=== PATIENT | male | born 1980 | race Caucasian/White ===

== ENCOUNTER → 2018-01-30 08:37 | Outpatient (CLI) | payer OTHER, SELFPAY ==
--- NOTE | 2018-01-30 08:40 | RAD_ITS ---
STUDY: X-RAY - CERVICAL SPINE REASON FOR EXAM: Male, 37 years old. Left-sided neck pain x2 TECHNIQUE: 7 view(s) of the cervical spine were obtained. COMPARISON: None FINDINGS: Normal anterior atlantoaxial articulation. Normal odontoid process. Normal cervical lordosis. Normal vertebral bodies and endplates. Normal disc space heights. Normal visualized intervertebral neuroforamina. The soft tissue structures are unremarkable. RAD/Cerv Spine 4 or 5 Views IMPRESSION: Normal x-ray examination of the visualized cervical spine. Electronically Signed: Kye Phan MD at 9:53 EDT , Service support ,
== END ==
PROVIDERS: Family Provider Nurse Practitioner; PCP Nurse Practitioner; Visit Provider Nurse Practitioner Gerontology
DX: M54.2 Cervicalgia (principal)
CPT/HCPCS: 72050

== ENCOUNTER 2020-11-23 08:56 | Outpatient (RCR) | payer OTHER, SELFPAY | END 2021-01-24 23:59 | LOC: IMMUN 08:56 | PROVIDERS: PCP Pediatrics; Referring Provider Family Medicine; Visit Provider Family Medicine | DX: Z23 Encounter for immunization (principal) | CPT/HCPCS: 0001A; 91300 ==

== ENCOUNTER → 2022-01-02 | Outpatient (CLI) | payer OTHER, SELFPAY ==
--- NOTE | 2022-01-02 13:27 | CT_ITS ---
STUDY: CTA CHEST REASON FOR EXAM: Male, 41 years old. Thoracic aortic ectasia RADIATION DOSAGE (If Supplied By Facility): CTDIvol = ( 12.64 ) mGy, DLP = ( 555.72 ) mGycm TECHNIQUE: The examination was performed with the intravenous administration of IV 100mL Isovue-370. Post-processing of the angiographic images was performed, with multiplanar reformation and 3D reconstruction. Individualized dose optimization techniques were used for this CT. COMPARISON: Comparison is made with prior study dated 05/09/2015. FINDINGS: Normal enhancement of the main pulmonary artery and right and left pulmonary arteries. Normal enhancement of the bilateral peripheral pulmonary arteries. There is no demonstrated pulmonary embolism. There is aneurysmal dilatation of the ascending aorta. The transverse diameter of the ascending aorta measures 43.6 mm''s. There is no demonstrated aortic dissection. Normal heart and pericardium. Normal mediastinum. Normal hilar regions. Normal visualized trachea and bronchi. The lungs are well expanded. Normal pulmonary parenchyma. Normal pleura. Normal chest wall structures. Normal osseous structures. Normal visualized upper abdomen. CT/CTA Chest W/WO Contrast IMPRESSION: Aneurysmal dilatation of the root of the ascending aorta with a transverse dimension of 43.6 mm. It previously measured 42 mm. Electronically Signed: Ezio Sears MD at 14:55 EDT ,
--- NOTE | 2022-01-02 13:42 | ECHOCS_ITS ---
Reason For Study: MURMUR Procedure This was a 2D Doppler, Color Flow transthoracic echocardiogram. The study was technically difficult. Contrast injection was performed. Exam performed in department. Left Ventricle Normal LV size. Left ventricular systolic function is normal. The estimated ejection fraction is 60 %. No evidence for diastolic dysfunction. No regional wall motion abnormalities noted. Right Ventricle Normal RV size. Normal systolic function. Atria Normal left atrium. Normal right atrium. No doppler evidence for ASD. Mitral Valve There is no mitral annular calcification. Normal mitral valve. Trivial mitral valve insufficiency. Tricuspid Valve Normal tricuspid valve. Trivial tricuspid valve insufficiency. Right ventricular systolic pressure estimated to be 25 mmHg. Aortic Valve Bicuspid aortic valve. Mild focal aortic valve calcification. Trivial eccentric aortic valve insufficiency. Pulmonic Valve The pulmonic valve is not well visualized. Great Vessels Mildly dilated aortic root. Pericardium/Pleural No pericardial effusion. Medication Diluted definity 4ml given slow IV push to enhance endocardial definition. MMode/2D Measurements & Calculations LVIDd: 5.3 cm IVSd: 0.93 cm Ao root diam: 3.8 cm LVIDs: 3.9 cm LVPWd: 0.98 cm RVDd: 4.1 cm FS: 27.2 % LAV(MOD-bp): 41.7 ml LVAd ap4: 38.1 cm2 SV(MOD-sp4): 79.2 ml LAV(MOD-bp) Indexed: 17.2 ml/m2 LVLd ap4: 9.2 cm LAV(MOD-sp2): 38.2 ml EDV(MOD-sp4): 131.8 ml LAV(MOD-sp4): 39.7 ml EDV(sp4-el): 134.4 ml LVAs ap4: 21.6 cm2 LVLs ap4: 7.5 cm ESV(MOD-sp4): 52.6 ml ESV(sp4-el): 52.8 ml EF(MOD-sp4): 60.1 % EF(sp4-el): 60.7 % SV(sp4-el): 81.6 ml LA A4 area: 17.0 cm2 LA dimension(2D): 3.6 cm RA A4 area: 13.9 cm2 Time Measurements MV dec time: 0.22 sec Doppler Measurements & Calculations MV E max kyle: 71.3 cm/sec Lat Peak E' Kyle: 14.0 cm/sec Med Peak E' Kyle: 7.6 cm/sec MV A max kyle: 51.4 cm/sec E/E' lat: 5.1 E/E' med: 9.4 MV E/A: 1.4 Ao V2 max: 159.9 cm/sec LV V1 max: 91.4 cm/sec PA V2 max: 106.9 cm/sec Ao max P.2 mmHg LV V1 max P.3 mmHg TR max kyle: 234.0 cm/sec TR max P.9 mmHg ECHO/Echo Complete W/ Contrast Interpretation Summary The study was technically difficult. Contrast injection was performed. Left ventricular systolic function is normal. The estimated ejection fraction is 60 %. Trivial mitral valve insufficiency. Trivial tricuspid valve insufficiency. Bicuspid aortic valve. Mild focal aortic valve calcification. Trivial eccentric aortic valve insufficiency. Mildly dilated aortic root. Right ventricular systolic pressure estimated to be 25 mmHg. No evidence for diastolic dysfunction. Ordering Physician: Jaxson Wu Referring Physician: BRANDON DOLL Performed By: Madhuri Frank RDCS
== END | disposition home or self-care (01) ==
LOC: PSN 13:26
PROVIDERS: PCP Pediatrics; Visit Provider Internal Medicine Cardiovascular Disease
DX: Q23.1 Congenital insufficiency of aortic valve (principal); I77.810 Thoracic aortic ectasia; R00.1 Bradycardia, unspecified
CPT/HCPCS: 71275; 93225; 93226; 93306; Q9957; Q9967; A4216; C8929

== ENCOUNTER 2025-05-03 06:47 | Emergency (ER) | payer OTHER, SELFPAY ==
[2025-05-03 06:48] VITALS: BP 109/87; PULSE 69; RESP 18; TEMP 36.7; O2SAT 98; BMI 36.8
--- NOTE | 2025-05-03 07:17 | EX.ED.DYSGE1 ---
HPI History of Present Illness Chief Complaint: Lower Extremity Injury Narrative Narrative: Chief complaint and HPI: 45-year-old male with past medical history of gout presents for evaluation of right knee pain. Patient states that he has had pain in his right knee for the past 2 weeks intermittently. He states that the pain is located on the lateral aspect of the knee. He states there was swelling in the knee that significantly improved after steroids. On chart review, he went to urgent care on 04/28 for the same complaint. He had an x-ray performed and was placed on steroids for possible gout. He states that he has not been taking his allopurinol secondary for concern of possible gout. He states this does not feel like his typical gout flare. His knee is not red or warm. Movement/walking on the knee makes the pain worse. He denies any trauma or injury. Denies any numbness or tingling. Denies any fever, chills, shortness of breath, chest pain abdominal pain, nausea, vomiting. Denies any calf pain or swelling. Review of systems: See HPI Medications: As listed on the chart Allergies: As listed on the chart PFSH: Per chart Vital signs: As listed on the chart. Reviewed. Physical exam: Gen: A&O x3, NAD Head: Normocephalic, atraumatic Eyes: No sclera icterus, conjunctiva clear ENT: Moist mucous membranes CV: Regular rate Resp: Nonlabored respirations Musc: Full ROM of all the extremities except for the right lower extremity which is limited in active range of motion secondary to lateral knee pain, full passive range of motion, no deformity, no knee instability, patient has tenderness to palpation along the lateral collateral ligament of the knee otherwise knee is nontender, no significant joint or knee swelling, no erythema/warmth/crepitus/ecchymosis/rash, no meniscal tenderness, no calf swelling or tenderness, negative Homans' sign, DP/PT pulses +2 bilaterally, compartments soft, good capillary refill, sensation intact Skin: Warm, dry Neuro: Alert, oriented, grossly intact Psych: Cooperative, appropriate mood and affect [facility] Medical History Bicuspid aortic valve Bradycardia Dilated aortic root Gout Gout of right elbow Home Medications ?Medication ?Instructions ?Recorded ?Last Taken ?Type allopurinol 100 mg tablet 300 mg PO DAILY 11/23/21 Unknown History prednisone 50 mg tablet 50 mg PO QDAY #7 tabs 04/28/25 Unknown Rx Allergy/AdvReac Type Severity Reaction Status Date / Time No Known Allergies Allergy Verified 05/03/25 06:53 Family History Other Heart disease Social History adopted: Yes Smoking Status: Current every day smoker tobacco type: e-cigarettes and smokeless tobacco alcohol intake: current details: 14 cans of beer per week substance use type: does not use caffeine: Yes EXAM Physical Exam Const Vital Signs: 05/03/25 06:48 Temperature 98.0 F Temperature Source Oral Pulse Rate 69 Respiratory Rate 18 Blood Pressure 109/87 H Blood Pressure Mean 94 Pulse Ox 98 Oxygen Delivery Method Room Air MDM MDM MDM Narrative Medical decision making narrative: 45-year-old male with past medical history of gout presents for evaluation of right knee pain. Patient states that he has had pain in his right knee for the past 2 weeks intermittently. He states that the pain is located on the lateral aspect of the knee. He states there was swelling in the knee that significantly improved after steroids. On chart review, he went to urgent care on 04/28 for the same complaint. He had an x-ray performed and was placed on steroids for possible gout. I reviewed the note as well as the x-ray. X-ray was unremarkable. He states this does not feel like his typical gout flare. See physical exam findings. Physical exam is not consistent with gout or septic arthritis. No large knee effusion. Patient is tender only along the lateral collateral ligament of the knee. Suspect sprain. I do not think any repeat x-rays are needed at this time. I did offer in case there is an occult fracture, patient declined. I do think this is reasonable as I have low suspicion for fracture. I do not think any laboratory workup is needed. Suggest [id number] knee brace. Patient educated on RICE therapy. He is given IM Toradol here for pain. Follow-up with orthopedics. He confirmed understand the plan. Patient stable to discharge home. Patient requesting work note which was given. Impression: 1. Right knee sprain Discharge Plan Triage Chief Complaint: Lower Extremity Injury ED Provider: Mike Quintero Dx/Rx/DC Orders Prescriptions: No Action allopurinol 100 mg tablet 300 mg PO DAILY prednisone 50 mg tablet 50 mg PO QDAY Qty: 7 0RF Primary Care Provider: Bert Johnson Referrals: Bert Johnson DO [Primary Care Provider] - Print Language: Latvian
[2025-05-03] MEDS: Ketorolac 30 MG/ML Syringe IM (07:22)
[2025-05-03 07:34] VITALS: BP 109/87; PULSE 69; RESP 18; TEMP 36.7; O2SAT 98
--- OUTSIDE RECORDS SUMMARY | 2025-05-03 07:40 | XMS RPT_ITS | CCD ---
Author Organization [facility] CliniSysd Care Team Providers Care Assistant Plant Control Operator Name Role Phone Dr. Bert Johnson Primary Care Provider Dr. Bert Johnson Referring Provider Dr. Jaxson Wu Attending Provider Chance Ferro MD Primary Care Provider Chance Ferro MD Primary Care Provider Chance Ferro MD Primary Care Provider Chance Ferro MD Primary Care Provider Chance Ferro MD Primary Care Provider [phone] Elaine MONIQUE.BOARD WRITER, Jennifer Unavailable Poonam Alves PA-C Unavailable CHANCE FERRO Primary Care Unavailable QUITA MARTIN Attending Unavailable PILLO, CHANCE A Primary Care Unavailable PILLO, CHANCE A Primary Care Unavailable PILLO, CHANCE A Primary Care Unavailable PILLO, CHANCE A Attending Unavailable PILLO, CHANCE A Primary Care Unavailable PILLO, CHANCE A Attending Unavailable PILLO, CHANCE A Primary Care Unavailable PILLO, CHANCE A Referring Unavailable PILLO, CHANCE A Primary Care Unavailable PILLO, CHANCE A Primary Care Unavailable PILLO, CHANCE A Attending Unavailable Dr. Bert Johnson DO Primary Care Provider Dr. Bert Johnson DO Referring Provider Wilner Nix Attending Provider Blayne BENEDICT, Dr. Caro Attending Provider [phone] Wilner Nix Attending Unavailable Bert Johnson Referring Unavailable Bert Johnson Primary Care Unavailable Gordo Cisneros Attending Unavailable Bert Johnson Primary Care Unavailable Dr. Mike Quintero DO Emergency Provider Medications Current Medications Medication Drug Class(es) Dates Sig (Normalized) Sig (Original) allopurinol 300 mg oral tablet (17 sources) Xanthine Oxidase Inhibitor Start: 05-27-2024 End: 08-20-2024 take 1 tablet by mouth once daily for pain allopurinol (ZYLOPRIM) 300 mg tablet Indications: Gout, unspecified cause, unspecified chronicity, unspecified site Take 1 tablet by mouth once daily. For gout. Start after acute pain is resolved for 5-7 days. 30 tablet 5 08/20/2024 Active Start: 06-07-2023 End: 06-06-2024 take 1 tablet by mouth twice daily allopurinol (ZYLOPRIM) 100 mg tablet Indications: History of gout Take 1 tablet by mouth two times a day. For gout. 60 tablet 11 06/07/2023 05/27/2024 Discontinued Start: 11-23-2021 take 3 tablets by mo [facility] once daily Allopurinol 100 mg tablet Active 300 mg PO DAILY November 23, 2021 12:00am Start: 11-23-2021 take 1 tablet by mary beth th once daily Allopurinol 100 mg tablet Active 100 mg PO DAILY November 23, 2021 12:00am Comment on above: Take 1 tablet by mary beth th two times a day. For gout. cefadroxil 500 mg oral capsule (2 sources) Cephalosporin Antibacterial Start: End: take 1 capsule by mouth twice daily cefADROxil (DURICEF) 500 mg capsule Indications: Ingrown nail of great toe of right foot , Cellulitis of skin Take 1 capsule by mouth two times a day for 14 days. 28 capsule 08/20/2024 09/03/2024 Active Start: 05-27-2024 End: 06-06-2024 take 1 capsule by mouth twice daily cefADROxil (DURICEF) 500 mg capsule Take 1 capsule by mouth two times a day for 10 days. 20 capsule 05/27/2024 06/06/2024 Active omeprazole 40 mg delayed release oral capsule (17 sources) Proton Pump Inhibitor Start: 10-29-2022 take 1 capsule by mouth once daily omeprazole (PRILOSEC) 40 mg capsule Take 1 capsule by mouth once daily. 30 capsule 3 10/29/2022 Active Comment on above: Take 1 capsule by [facility] once daily. predniSONE 50 mg oral tablet (20 sources) Start: 04-28-2025 take 1 tablet by mouth once daily Prednisone 50 mg tablet Active 50 mg PO daily 7 0 April 28, 2025 12:00am Start: 05-27-2024 End: 08-20-2024 take 3 tablets by mouth once daily predniSONE (DELTASONE) 20 mg tablet 3 tabs a day by mouth for the next 5 days 15 tablet 06/10/2024 08/20/2024 Discontinued Start: 03-15-2024 End: 03-20-2024 take 1 tablet by mouth once daily predniSONE (DELTASONE) 50 mg Indications: Acute gout of left wrist, unspecified cause Take 1 tablet by mouth once daily for 5 days. 5 tablet 0 03/15/2024 03/20/2024 Active Start: 10-29-2023 End: 11-07-2023 predniSONE (DELTASONE) 10 mg tablet Indications: Acute gout of left knee, unspecified cause Take 4 tabs daily for 3 days, then 2 tabs daily for 3 days, then 1 tab daily for 3 days with food. 21 tablet 0 10/29/2023 11/07/2023 Active Start: 07-07-2022 End: 10-29-2022 take 2 tablets by mouth once daily predniSONE (DELTASONE) 20 mg tablet 2 by mouth daily for 5 days. 10 tablet 0 07/07/2022 10/29/2022 Discontinued (Course of therapy completed) Start: 06-16-2022 End: 06-25-2022 predniSONE (DELTASONE) 10 mg tablet Indications: Patellar bursitis of left knee Take 4 tabs daily for 3 days, then 2 tabs daily for 3 days, then 1 tab daily for 3 days with food. 21 tablet 0 06/16/2022 06/25/2022 Active Start: 11-23-2021 End: 04-28-2025 take 1 tablet by mouth once daily as needed Prednisone 20 mg tablet Discontinued 20 mg PO DAILY as needed November 23, 2021 12:00am April 28, 2025 7:48am Start: 10-31-2020 End: 11-12-2020 Prednisone 10 mg tablet Disc ontinued 10 mg PO daily 30 12 0 October 31, 2020 12:00am November 11, 2020 12:00am November 12, 2020 12:04am Unspecified contact dermatitis, unspecified cause Take 4 tabs once daily days 1-3 3 tabs once daily days 4-6 2 tabs once daily days 7-9 and 1 tab once daily days 10-12. Comment on above: Take 4 tabs daily fo r 3 days, then 2 tabs daily for 3 days, then 1 tab daily for 3 days with food. 2 by mouth daily for 5 days. sertraline 50 mg oral tablet (6 sources) Serotonin Reuptake Inhibitor Start: 05-27-2024 sertraline (ZOLOFT) 50 mg tablet 1/2 a tablet by mouth once a day for 14 days then go to one tablet daily 30 tablet 5 05/27/2024 Active Completed/Discontinued Medications Medication Drug Class(es) Dates Sig (Normalized) Sig (Original) acetaminophen 325 mg / HYDROcodone bitartrate 5 mg oral tablet (4 sources) Opioid Agonist Start: 01-31-2015 End: 11-07-2020 take 1 tablet by mouth every four hours as needed Hydrocodone-Acetami nophen Discontinued 1 - 2 TABLET PO EVERY 4 HOURS NEEDED 6 January 31, 2015 10:42pm November 07, 2020 1:54pm Start: 01-31-2015 End: 11-07-2020 Hydrocodone-Acetaminophen 1 TABLET tablet Discontinued 1 - 2 {tbl} PO EVERY 4 HOURS NEEDED as needed for Pain 6 0 January 31, 2015 12:00am November 07, 2020 1:54pm allopurinol (ZYLOPRIM) 200 mg tablet [place] Formulary (4 sources) End: 10-29-2022 take 1 tablet by mouth once daily allopurinol (ZYLOPRIM) 200 mg tablet [place] Formulary Take 200 mg by mouth once daily. 0 10/29/2022 Discontinued take 1 tablet by mouth once rita y allopurinol (ZYLOPRIM) 200 mg tablet [place] Formulary Take 200 mg by mouth once daily. 0 Active Comment on above: Take 200 mg by mouth once daily. colchicine 0.6 mg oral tablet (5 sources) Start: 2023 End: 2023 take 1 tablet by mouth three times daily colchicine 0.6 mg tablet Take one tab by mouth 3 times a day till pain stops or script finished. 10 tablet 1 05/27/2024 07/01/2024 Discontinued (Course of therapy completed) famotidine 20 mg oral tablet (4 sources) Histamine-2 Receptor Antagonist Start: 2021 End: 2022 take 1 tablet by mouth at bedtime as needed famotidine (PEPCID) 20 mg tablet Indications: Abdominal pain, unspecified abdominal location Take 1 tablet by mouth at bedtime as needed. 30 tablet 0 05/01/2022 10/29/2022 Discontinued Comment on above: Take 1 tablet by mary beth th at bedtime as needed. ibuprofen 200 mg oral capsule (4 sources) Nonsteroidal Anti-inflammatory Drug Start: 2020 End: 2021 take 1 capsule by mouth every six hours as needed Ibuprofen 200 mg capsule Discontinued 200 mg PO EVERY 6 HOURS as needed November 14, 2020 12:00am November 23, 2021 3:47pm indomethacin 50 mg oral capsule (4 sources) Nonsteroidal Anti-inflammatory Drug Start: 2020 End: 2021 take 1 capsule by mouth three times daily as needed Indomethacin 50 mg capsule Discontinued 50 mg PO THREE TIMES A DAY as needed for pain, moderate 40 0 November 14, 2020 12:00am November 23, 2021 3:47pm take regularly for 1 week than as needed. Do not take in conjunction with ibuprofen or other NSAID. Tylenol is okay. administer with food or milk methylPREDNISolone (4 sources) Corticosteroid Start: 2023 End: 2023 methylPREDNISolone (MEDROL, CAMI,) 4 mg Dose-Pack Indications: Acute gout involving toe of right foot, unspecified cause As instructed per package 21 tablet 03/05/2024 05/27/2024 Discontinued Start: 03-05-2024 methylPREDNISo lone (MEDROL, CAMI,) 4 mg Dose-Pack Indications: Acute gout involving toe of right foot, unspecified cause As instructed per package 21 tablet 0 03/05/2024 Active Start: 11-14-2020 End: 11-14-2020 Depo-Medrol (methylprednisol one acetate) 40 mg/mL suspension for injection Discontinued 40 MG INTRAARTIC ONCE 1 November 14, 2020 9:56am November 14, 2020 10:46am nabumetone 500 mg oral tablet (4 sources) Nonsteroidal Anti-inflammatory Drug Start: 09-29-2013 End: 10-29-2022 take 1 tablet by mouth twice daily at mealtime nabumetone 500 mg tablet Indications: Low back pain Take 1 tablet by mouth twice daily. TAKE WITH FOOD 60 tablet 1 09/29/2013 10/29/2022 Discontinued Comment on above: Take 1 tablet by mary beth twice daily. TAKE WITH FOOD penicillin v potassium 500 mg oral tablet (4 sources) Start: 01-31-2015 End: 11-07-2020 take 1 tablet by mouth four times daily Penicillin V Potassium 500 MG tablet Discontinued 500 mg PO 4 TIMES DAILY 20 0 January 31, 2015 12:00am November 07, 2020 1:54pm perflutren lipid microspheres 1.3 mL in NaCl (PF) 0.9% 10 mL injection (DEFINITY) (9 sources) Start: 10-29-2022 End: 01-28-2024 perflutren lipid microspheres 1.3 mL in NaCl (PF) 0.9% 10 mL injection (DEFINITY) 125 ml sodium chloride 9 mg/ml prefilled syringe (9 sources) Start: 10-29-2022 End: 01-28-2024 sodium chloride 0.9 % (flush) 10 mL (BD POSIFLUSH) Problems Active Problems Problem Classification Problem Date Documented Date Episodic/Chronic Abdominal pain (1 source) Abdominal pain; Translations: [Unspecified abdominal pain] Episodic Anxiety disorders (7 sources) Generalized anxiety disorder; Translations: [Generalized anxiety disorder] Onset: 05-27-2024 05-27-2024 Chronic Aortic; peripheral; and visceral artery aneurysms (5 sources) Aortic root dilatation; Translations: [Thoracic aortic ectasia] Chronic Cardiac and circulatory congenital anomalies (6 sources) Bicuspid aortic valve; Translations: [Congenital insufficiency of aortic valve] Chronic Cardiac dysrhythmias (6 sources) Bradycardia; Translations: [Bradycardia, unspecified] Episodic Esophageal disorders (1 source) Gastroesophageal reflux disease without esophagitis; Translations: [Gastro-esophageal reflux disease without esophagitis] Chronic Gout and other crystal arthropathies (20 sources) Gout; Translations: [Gout, unspecified] Onset: 10-29-2022 10-29-2022 Chronic Mood disorders (7 sources) Severe major depression, single episode, without psychotic features; Translations: [Major depressive disorder, single episode, severe without psychotic features] Onset: 05-27-2024 05-27-2024 Chronic Nonspecific chest pain (2 sources) Chest pain; Translations: [Chest pain, unspecified] Episodic Other connective tissue disease (1 source) Patellar bursitis of left knee; Translations: [Other bursitis of knee, left knee] Episodic Other connective tissue disease (1 source) H/O: gout; Translations: [Personal history of other diseases of the musculoskeletal system and connective tissue] 06-07-2023 Episodic Other lower respiratory disease (3 sources) Dyspnea; Translations: [Shortness of breath] Episodic Other non-traumatic joint disorders (4 sources) Pain in right knee; Translations: [Right knee pain] Onset: 04-28-2025 04-28-2025 Episodic Other skin disorders (1 source) Cyst of scalp; Translations: [Follicular cyst of the skin and subcutaneous tissue, unspecified] 06-07-2023 Episodic Other skin disorders (3 sources) Ingrowing great toenail; Translations: [Ingrowing nail] 05-27-2024 Episodic Other skin disorders (1 source) Ingrowing toenail; Translations: [Ingrowing nail] 06-12-2024 Episodic Skin and subcutaneous tissue infections (2 sources) Paronychia of toe of right foot; Translations: [Cellulitis of right toe] 05-27-2024 Episodic Sprains and strains (1 source) Sprain of knee; Translations: [Sprain of unspecified site of unspecified knee, initial encounter] 05-03-2025 Episodic Past or Other Problems Problem Classification Problem Date Documented Da te Episodic/Chronic Residual codes; unclassified (20 sources) Insomnia; Translations: [Insomnia, unspecified] Onset: 09-29-2013 09-29-2013 Episodic Residual codes; unclassified (18 sources) Chews tobacco ; Translations: [Tobacco use] Onset: 10-29-2022 Episodic Screening and history of mental health and substance abuse codes (19 sources) Ex-smoker; Translations: [Personal history of nicotine dependence] Onset: 10-29-2022 Episodic Spondylosis; intervertebral disc disorders; other back problems (20 sources) Sciatica; Translations: [Sciatica, unspecified side] Onset: 09-29-2013 09-29-2013 Episodic Results Test Name Value Interpretation Reference Range Facility Knee 3 Viewson 04-28-2025 Knee 3 Views [facility] Imaging Services [address] [place] [address] Knee 3 Views MR#: [id number] Acct: [id number] Name: ERIC ARAIZA Rep #: [id number] : 1980 M 45 From: Jose L Balnco MD PCP: Dr. Bert Johnson DO Status: DEP AMB Study: Knee 3 Views Date of Exam: 04/28/25 Exam# [id number] Ordering Dr: Wilner Cochran PA PROCEDURE: KNEE 3 VIEWS 04/28/2025 REASON FOR EXAM: PAIN, SWELLING, NKI TECHNIQUE: Procedure Code: RADPAT Modality: DX Procedure: KNEE 3 VIEWS Laterality: Right COMPARISON: None FINDINGS: Bones: No fracture. Joints: Normal alignment. Effusion: Subtle increased density in the region of the suprapatellar bursa is likely musculature rather than an effusion; the upper extent of the versus not imaged. Soft tissues: Soft tissues are unremarkable. Other: No foreign body RAD/Knee 3 Views IMPRESSION: No acute abnormality Reading Location: [facility] CC: Dr. Bert Johnson DO; TARIQ Howard Commercial Development Manager: Signed Normal [facility] Urgent Care Visit Reporton 0 04-28-2025 Urgent Care Visit Report [facility] [address], [address] [place] [address] OFFICE VISIT Date of Service: 04/28/25 MR#: [id number] Acct: [id number] Name: ERIC ARAIZA Rep #: [id number] : 1980 Provider: TARIQ Howard Age/Sex: 45/M Location: [facility] Status: Signed Intake Vital Signs 11/23/21 15:46 04/28/25 07:47 Height 6 ft 6 ft Weight: 265 lb BMI 35.9 BP 120/78 Position Sitting Respiration 16 Pulse 67 Temp 98.3 F Temp Source Oral Pulse Oximetry (%) 97 Oxygen Delivery Method room air Intake Visit Reasons: SWOLLEN R KNEE Chief Complaint: Swollen Right knee Accompanied by: Self Allergies No Known Allergies Allergy (Verified 04/28/25 07:48) Medications ???Medication ???Instructions ???Recorded ???Confirmed ???Type allopurinol 100 mg tablet 100 mg PO DAILY 11/23/21 04/28/25 History prednisone 50 mg tablet 50 mg PO QDAY #7 tabs 04/28/2506/12 Rx Nurse's Note: Patient here for Right knee swelling and pain. Patient states this has been going on for about 2 weeks off and on. Patient states last night it was worse. Patient knee is swollen and so is his calf and he feels like his blood flow it getting cut off down the leg. Patient states that he can't put weight on it. Patient took 4 Aleve today. [facility] Medical History Bicuspid aortic valve Bradycardia Dilated aortic root Gout Gout of right elbow Family History Other Heart disease Social History adopted: Yes Smoking Status: Former smoker alcohol intake: current details: 14 cans of beer per week substance use type: does not use caffeine: Yes HPI HPI Chief Complaint: Swollen Right knee Details: ERIC ARAIZA, is a 45 M who presents to the office today for initial evaluation approximately 2-week history of right knee swelling and pain - though becoming intolerable as of last evening w/ warmth and swelling now appreciated. No history of trauma or recent open wounds. Though he stated to the nurse today that his right calf and he feels like his blood flow it getting cut off down the leg he feels this is due to right knee swelling; upon my questioning though, he notes having no discomfort to touch throughout his lower leg and feels good sensation throughout his right lower leg/ankle/foot. No complaints of chest pressure/shortness of breath/dyspnea on exertion. Patient states that he can put weight on his right lower extremity, though right knee pain is aggravated with prolonged weightbearing. He states having taken 4 Advil (not Aleve) this morning before reporting here today without relief. No other associated symptoms and no alleviating/aggravating factors. PMH: Gout ROS Const Constitutional: No other (as above) Exam Const General: cooperative, healthy appearing and no acute distress Orientation: alert and awake Eyes General: appearance normal, both eyes and all related structures Neck Neck: normal visual inspection and no meningeal signs Chest Chest palpation inspection: normal inspection of the chest Resp Effort Inspection: normal respiratory effort and able to speak in complete sentences Cardio Rate: regular rate Pulses: radial pulses present Skin General: no rashes or lesions noted Neuro General: patient alert and patient awake Cognition: normal cognition Speech: speech normal Motor: muscle tone normal throughout Sensory Exam: no sensory deficits noted Extrem General: normal to inspection (Except R knee swelling/warmth/LROM due to tender to touch), full ROM (Right hip/ankle), capillary refill normal and other (neg Lyndsey's BLE; +cap refill distally; no BLE edema) Psych Appearance: grossly normal Mental Status: mental status grossly normal Mood: congruent mood Affect: normal affect Speech and Movement: speech and movement normal Attitude: cooperative Coding Level of Care Code Off vis,est,level 4 Diagnoses Right knee pain M25.561 Assessment and Plan Assessment and Plan (1) Right knee pain: Plan: - consider gout exacerbation Right knee radiographs reveal no acute pathology per my review, pending radiologist interpretation time patient discharge. Prednisone as prescribed today; hold all NSAIDs while on this medication. Supportive measures including rest, elevate, Tylenol as needed; refused Adama wrap for localized compression upon offering. Work excuse given. Follow-up with PCP in 3 to 5 days should symptoms not improve, ED sooner should symptoms only worsen or any other concerns develop. Patient states acknowledging understanding all the above. This note was generated with OrderAheadation software. It (more content not included)... Normal [facility] CNOVon 08-20-2024 CNOV Office Visit (FAMPWS ) ERIC ARAIZA ([id number]) 1980 M Date Time Provider Department 08/20/24 1:40 PM NELL QUITA YOGI During your visit today, we recorded the following information about you: Pulse Blood pressure Weight 85/minute 110/78 116.4 kg NellQuita APRN.CNP 08/20/2024 2:25 PM Signed Chief Complaint Patient presents with: Ingrown Nail: Right big toe, red and painful x 2/3 weeks, removal by Dr. Ferro 06/12, Gout HPI Eric Araiza is a 44 year old male who presents here today for Above Complaints.. Right great toe-red and painful. About 2-3 weeks ago started to get red and painful, started getting red and painful again. Went skiing last week and has had a little bit of bloody drainage. Denies fever. Soaking in Epsom salt, peroxide when he gets home from work. Keeping it clean and dry-changes his socks twice daily. Lets it air out when gets home from work. Past medical history, appointments, medications, allergies reviewed. Previous Medical History PAST MEDICAL HISTORY Diagnosis Date Bicuspid aortic valve Fussion Chews tobacco 10/29/2022 Started age 17. Ex-smoker 10/29/2022 Started at age 17 and was smoking 1 pack every two weeks or more. Previous Surgical History History reviewed. No pertinent surgical history. Family History FAMILY HISTORY Problem Relation Age of Onset None Unknown pt adopted Patient Allergies ALLERGIES No Known Allergies Current Medications Current Outpatient Medications on File Prior to Visit Medication Sig predniSONE (DELTASONE) 20 mg tablet 3 tabs a day by mouth for the next 5 days allopurinol (ZYLOPRIM) 300 mg tablet Take 1 tablet by mouth once daily. For gout. Start after acute pain is resolved for 5-7 days. sertraline (ZOLOFT) 50 mg tablet 1/2 a tablet by mouth once a day for 14 days then go to one tablet daily omeprazole (PRILOSEC) 40 mg capsule Take 1 capsule by mouth once daily. No current facility-administered medications on file prior to visit. Social History Social History Tobacco Use Smoking status: Former Types: Cigarettes Smokeless tobacco: Never Tobacco comments: approx 2 cigs yearly Substance Use Topics Alcohol use: Yes Alcohol/week: 14.0 standard drinks of alcohol Types: 14 Cans of Beer (12oz) per week Drug use: No Review of Symptoms REVIEW OF SYSTEMS See HPI, otherwise negative EXAM: BP 110/78 (BP Site: Left Arm, BP Position: Sitting, BP Cuff Size: Large Adult) Pulse 85 Wt 116.4 kg (256 lb 9.9 oz) SpO2 100% BMI 35.79 kg/m? General Appearance: Well appearing, alert, in no acute distress, well-hydrated, well nourished.. Skin: skin surrounding right great toenail, specifically medially and proximally, swollen, cool, purple in color, small amount dried blood, mildly painful to palpation. Extremities: skin surrounding right great toenail, specifically medially and proximally, swollen, cool, purple in color, small amount dried blood, mildly painful to palpation.. Psychiatric: pleasant, cooperative. Health Maintenance List Hepatitis C Screening Never done HIV Screening Never done Hepatitis B Vaccine(1 of 3 - 19+ 3-dose series) Never done Lipid Screening Never done DTaP,Tdap,Td Vaccine(2 - Td or Tdap) due on 01/17/2021 Influenza Vaccine(1) due on 04/19/2024 Covid-19 Vaccine(3 - 2023- season) due on 04/19/2024 HPV Vaccine Aged Out Data reviewed Previous records, office notes ASSESSMENT/PLAN: 1. Ingrown nail of great toe of right foot - ICD9: 703.0, ICD10: L60.0 (primary diagnosis) Continue soaking with Epsom salts and Dreft. Keep clean and dry. Aware of red flag s/s. F/u in the office in 5 days. - CEFADROXIL 500 MG CAPSULE 2. Gout, unspecified cause, unspecified chronicity, unspecified site - ICD9: 274.9, ICD10: M10.9 - ALLOPURINOL 300 MG TABLET 3. Cellulitis of skin - ICD9: 682.9, ICD10: L03.90 Continue soaking with Epsom salts and Dreft. Keep clean and dry. Aware of red flag s/s. F/u in the office in 5 days. - CEFADROXIL 500 MG CAPSULE Quita Martin APRN.BOARD WRITER Allergies As of Date: 08/20/2024 (No Known Allergies) Date Reviewed: 08/20/2024 Reviewed by: Quita Martin APRN.BOARD WRITER - Fully Assessed Reason for Visit: Ingrown Nail [765] Cmt: Right big toe, red and painful x 2/3 weeks, removal by Dr. Ferro 06/12, Gout Primary Visit Diagnosis:Ingrown nail of great toe of right foot [L60.0] Other Visit Diagnoses:Gout, unspecified cause, unspecified chronicity, unspecified site [M10.9] Cellulitis of skin [L03.90] Order(s):allopurinol (ZYLOPRIM) 300 mg tabletTake 1 tablet by mouth once daily. For gout. Start after acute pain is resolved for 5-7 days.Disp: 30 tabletRfl: 5 cefADROxil (DURICEF) 500 mg capsuleTake 1 capsule by mouth two times a day for 14 days.Disp: 28 capsuleRfl: 0 Prescriptions as of 08/20/2024 - allopuri (more content not included)... Normal [facility] CNOVon 07-01-2024 CN Office Visit (FAMPWS ) ERIC ARAIZA ([id number]) 1980 M Date Time Provider Department 07/01/24 5:40 PM CHANCE FERROPARISH During your visit today, we recorded the following information about you: Pulse Respiration Blood pressure Weight 82/minute 16/minute 118/82 116.6 kg Chance Ferro MD 07/01/2024 5:38 PM Signed Chief Complaint Patient presents with: Follow Up HPI Eric Araiza is a 44 year old male who presents here today for follow up on foot. Patient has been doing ok. No further pain. Has had some slight drainage. Office visit - 06/12/2024 - right eric At a recent apt patient was diagnosed with paronychia and ingrown right great toe nail lateral side. Past medical history, appointments, medications, allergies reviewed. Previous Medical History PAST MEDICAL HISTORY Diagnosis Date Bicuspid aortic valve Fussion Chews tobacco 10/29/2022 Started age 17. Ex-smoker 10/29/2022 Started at age 17 and was smoking 1 pack every two weeks or more. Previous Surgical History No past surgical history on file. Family History FAMILY HISTORY Problem Relation Age of Onset None Unknown pt adopted Patient Allergies ALLERGIES No Known Allergies Current Medications Current Outpatient Medications on File Prior to Visit Medication Sig predniSONE (DELTASONE) 20 mg tablet 3 tabs a day by mouth for the next 5 days colchicine 0.6 mg tablet Take one tab by mouth 3 times a day till pain stops or script finished. allopurinol (ZYLOPRIM) 300 mg tablet Take 1 tablet by mouth once daily. For gout. Start after acute pain is resolved for 5-7 days. sertraline (ZOLOFT) 50 mg tablet 1/2 a tablet by mouth once a day for 14 days then go to one tablet daily omeprazole (PRILOSEC) 40 mg capsule Take 1 capsule by mouth once daily. No current facility-administered medications on file prior to visit. Social History Social History Tobacco Use Smoking status: Former Types: Cigarettes Smokeless tobacco: Never Tobacco comments: approx 2 cigs yearly Substance Use Topics Alcohol use: Yes Alcohol/week: 14.0 standard drinks of alcohol Types: 14 Cans of Beer (12oz) per week Drug use: No Review of Symptoms REVIEW OF SYSTEMS See HPI EXAM: BP 122/96 Pulse 82 Resp 16 Wt 116.6 kg (257 lb) BMI 35.84 kg/m? BP 118/82 Pulse 82 Resp 16 Wt 116.6 kg (257 lb) BMI 35.84 kg/m? General Appearance: Well appearing, alert, in no acute distress, well-hydrated, well nourished.. Skin: Skin color, texture, turgor normal, no suspicious rashes or lesions. Some slight serosanguinous drainage. No puss. No swelling or pain. Health Maintenance List Hepatitis C Screening Never done HIV Screening Never done Hepatitis B Vaccine(1 of 3 - 19+ 3-dose series) Never done Lipid Screening Never done DTaP,Tdap,Td Vaccine(2 - Td or Tdap) due on 01/17/2021 Influenza Vaccine(1) due on 04/19/2024 Covid-19 Vaccine(2023- season) due on 04/19/2024 HPV Vaccine Aged Out Data reviewed A/P ASSESSMENT/PLAN: 1. Ingrown nail of great toe of right foot - ICD9: 703.0, ICD10: L60.0 - post op visit. Healing good. Patient to continue soaking for the next 1-2 weeks. F/u if any issues otherwise next routine. Chance Ferro MD Allergies As of Date: 07/01/2024 (No Known Allergies) Date Reviewed: 07/01/2024 Reviewed by: Nata Trejo MA - Fully Assessed Reason for Visit: Follow Up [171] Primary Visit Diagnosis:Ingrown nail of great toe of right foot [L60.0] Prescriptions as of 07/01/2024 - predniSONE (DELTASONE) 20 mg tablet 3 tabs a day by mouth for the next 5 days - allopurinol (ZYLOPRIM) 300 mg tablet Take 1 tablet by mouth once daily. For gout. Start after acute pain is resolved for 5-7 days. - sertraline (ZOLOFT) 50 mg tablet 1/2 a tablet by mouth once a day for 14 days then go to one tablet daily - omeprazole (PRILOSEC) 40 mg capsule Take 1 capsule by mouth once daily. Problem List As Of Date 07/01/2024 Noted Resolved Insomnia [G47.00] 09/29/2013 Sciatica [M54.30] 09/29/2013 Gout [M10.9] 10/29/2022 Ex-smoker [Z87.891] 10/29/2022 Chews tobacco [Z72.0] 10/29/2022 HEIDI (generalized anxiety disorder) [F41.1] 05/27/2024 Current severe episode of major depressive diso*05/27/2024 Medications Discontinued During This Encounter Prescriptions - colchicine 0.6 mg tablet (Discontinued) Reported on 07/01/2024 Encounter Status:Closed by CHANCE FERRO on 07/01/24 [facility] Alli 06-14-2024 [facility] Telephone (FAMPWS) ERIC ARAIZA ([id number]) 1980 M Date Time Provider Department 06/14/24 CHANCE FERRO During your visit today, we recorded the following information about you: Chance Ferro MD 06/14/2024 9:05 PM Signed Let patient know His uric acid level is below 6 at 5.6. advise him to stay on the Allopurinol. See how his toe did over the weekend. Nata Trejo MA 06/15/2024 9:31 AM Signed Left message for patient to contact office. AIDAN Alcantar Kathryn, MA 06/16/2024 9:19 AM Signed Pt notified. The toe feels good, still has a little blood in the nail and redness around the toe. No swelling. No drainage other than some blood seeping on the bandage around the right lower nail bed. He did use some Hydrogen peroxide with little bubbling. Ruby Cole MA Allergies As of Date: 06/14/2024 (No Known Allergies) Date Reviewed: 05/27/2024 Reviewed by: Nata Trejo MA - Fully Assessed Reason for Visit: Results [95] Prescriptions as of 06/16/2024 - predniSONE (DELTASONE) 20 mg tablet 3 tabs a day by mouth for the next 5 days - colchicine 0.6 mg tablet Take one tab by mouth 3 times a day till pain stops or script finished. - allopurinol (ZYLOPRIM) 300 mg tablet Take 1 tablet by mouth once daily. For gout. Start after acute pain is resolved for 5-7 days. - sertraline (ZOLOFT) 50 mg tablet 1/2 a tablet by mouth once a day for 14 days then go to one tablet daily - omeprazole (PRILOSEC) 40 mg capsule Take 1 capsule by mouth once daily. Problem List As Of Date 06/14/2024 Noted Resolved Insomnia [G47.00] 09/29/2013 Sciatica [M54.30] 09/29/2013 Gout [M10.9] 10/29/2022 Ex-smoker [Z87.891] 10/29/2022 Chews tobacco [Z72.0] 10/29/2022 HEIDI (generalized anxiety disorder) [F41.1] 05/27/2024 Current severe episode of major depressive diso*05/27/2024 Encounter Status:Closed by CHANCE FERRO on 06/16/24 [facility] CNOVon 06-12-2024 CNOV Office Visit (FAMPWS ) ERIC ARAIZA ([id number]) 1980 M Date Time Provider Department 06/12/24 4:20 PM [facility]ERR[facility] During your visit today, we recorded the following information about you: Pulse Respiration Blood pressure Weight 76/minute 16/minute 126/88 116.6 kg Chance Ferro MD 06/15/2024 8:47 PM Signed Chief Complaint Patient presents with: Ingrown Toenail: Right toe HPI Eric Araiza is a 44 year old male who presents here today for right toenail removal. At a recent apt patient was diagnosed with paronychia and ingrown right great toe nail lateral side. Past medical history, appointments, medications, allergies reviewed. Previous Medical History PAST MEDICAL HISTORY Diagnosis Date Bicuspid aortic valve Fussion Chews tobacco 10/29/2022 Started age 17. Ex-smoker 10/29/2022 Started at age 17 and was smoking 1 pack every two weeks or more. Previous Surgical History No past surgical history on file. Family History FAMILY HISTORY Problem Relation Age of Onset None Unknown pt adopted Patient Allergies ALLERGIES No Known Allergies Current Medications Current Outpatient Medications on File Prior to Visit Medication Sig predniSONE (DELTASONE) 20 mg tablet 3 tabs a day by mouth for the next 5 days colchicine 0.6 mg tablet Take one tab by mouth 3 times a day till pain stops or script finished. allopurinol (ZYLOPRIM) 300 mg tablet Take 1 tablet by mouth once daily. For gout. Start after acute pain is resolved for 5-7 days. sertraline (ZOLOFT) 50 mg tablet 1/2 a tablet by mouth once a day for 14 days then go to one tablet daily omeprazole (PRILOSEC) 40 mg capsule Take 1 capsule by mouth once daily. No current facility-administered medications on file prior to visit. Social History Social History Tobacco Use Smoking status: Former Types: Cigarettes Smokeless tobacco: Never Tobacco comments: approx 2 cigs yearly Substance Use Topics Alcohol use: Yes Alcohol/week: 14.0 standard drinks of alcohol Types: 14 Cans of Beer (12oz) per week Drug use: No Review of Symptoms REVIEW OF SYSTEMS Still with discomfort from ingrown toe nail. EXAM: BP 126/88 Pulse 76 Resp 16 Wt 116.6 kg (257 lb) BMI 35.84 kg/m? General Appearance: Well appearing, alert, in no acute distress, well-hydrated, well nourished.. Skin: lateral right great toe nail ingrown. Still with local inflammation but infection is resolved. . Health Maintenance List Hepatitis C Screening Never done HIV Screening Never done Hepatitis B Vaccine(1 of 3 - 19+ 3-dose series) Never done Lipid Screening Never done DTaP,Tdap,Td Vaccine(2 - Td or Tdap) due on 01/17/2021 Influenza Vaccine(1) due on 04/19/2024 Covid-19 Vaccine(3 - 2023-25 season) due on 04/19/2024 HPV Vaccine Aged Out Data reviewed A/P ASSESSMENT/PLAN: 1. Ingrown toenail - ICD9: 703.0, ICD10: L60.0 - discussed wedge resection and matrixectomy of the lateral side of the right great toe nail. - patient in agreement. Consent signed. - see procedure note. - care sheet provided. F/u 3-4 weeks for recheck MD Pillo Gutierrez Jeffrey A, MD 06/15/2024 8:47 PM Signed UNIVERSAL PROTOCOL / SAFETY CHECKLIST Procedure to be Performed: wedge resection of toe nail with matrixectomy. Sign In: A Moment of CARE was completed. Personnel directly involved with the procedure wore the appropriate PPE (Personal Protective Equipment). Patient/Surrogate Stated/Verified: PATIENT VERIFIED(optional for EMERGENT procedures): Patient name, Date of , Relevant allergies, and The intended procedure Time Out Communication: Intended patient and procedure match the source documents. Consent documented and matches the intended procedure. Correct side/site marked and visible. Medications required for procedure verified. Sign Out: SIGN OUT (optional for EMERGENT procedures): No specimen collected. Post-procedure follow-up management communicated and Plan of Care Visit completed when applicable. The right great toe was cleansed with betadine and alcohol and then anesthetized with 2% Lido without Epi. After the right great toe was appropriately anesthetized a nail separator was used to separate the lateral edge of the nail down to the matrix. A nailing machine operator automatic was then used to cut the nail down to the matrix. A nail splitter was then used to split the rest of the nail down through the matrix. The lateral edge of the nail that was ingrown was then removed using a hemostat. A matricectomy was then performed using a bone rasp followed by chemical treatment with phenol. Patient tolerated well with minimal blood loss. There toe was covered with antibiotic ointment and a sterile dressing. Chance Ferro MD Allergies As of Date: 06/12/2024 (No Known Allergies) Date Reviewed: 05/27/2024 Rev (more content not included)... Normal [facility] Urate SerPl-ncon 4 Urate [Mass/Vol] 5.6 mg/dL Normal 4.0-8.1 Kinza hernandez [facility] Comment on above: Order Comment: Speci men Type: BLOOD SPECIMENOrdering Facility: [facility] Address: [address] [place] [address] Performed By: #### 3 [id number] ####[facility] LABCLIA [id number] [address] [place] CNOVon 05-27-2024 CNOV Office Visit (FAMPWS ) ERIC ARAIZA ([id number]) 1980 M Date Time Provider Department 05/27/24 4:40 PM PILLO, CHANCE A FAMPWS During your visit today, we recorded the following information about you: Temperature Pulse Respiration Blood pressure 99.6 degrees 84/minute 16/minute 118/96 Weight 120.7 kg Chance Ferro MD 05/28/2024 12:00 PM Signed Chief Complaint Patient presents with: Pain HPI Eric Araiza is a 44 year old male who presents here today for Acute onset of right foot pain/right elbow. Right foot x 1 month; right elbow started this Saturday. Location? Right foot/right elbow Pain scale? 7-8 Describe pain? Sharp and stabbing. Any injury? No injury Stooped the allopurinol since it seems like it was not helping. No longer drinks any alcohol and does not eat red meat often. The pain on the lateral side of th right foot started after the ball of the foot was hurting. Patient has been irritable for about a year, having difficulty sleeping for the past 6 months. Thinks he is depressed. Mom about a year ago. C/o redness, swelling and pus on the medial side of the right great toe. Has been doing [employer] salt soaks. Past medical history, appointments, medications, allergies reviewed. Previous Medical History PAST MEDICAL HISTORY Diagnosis Date Bicuspid aortic valve Fussion Chews tobacco 10/29/2022 Started age 17. Ex-smoker 10/29/2022 Started at age 17 and was smoking 1 pack every two weeks or more. Previous Surgical History No past surgical history on file. Family History FAMILY HISTORY Problem Relation Age of Onset None Unknown pt adopted Patient Allergies ALLERGIES No Known Allergies Current Medications Current Outpatient Medications on File Prior to Visit Medication Sig methylPREDNISolone (MEDROL, CAMI,) 4 mg Dose-Pack As instructed per package (Patient not taking: Reported on 03/15/2024) allopurinol (ZYLOPRIM) 100 mg tablet Take 1 tablet by mouth two times a day. For gout. omeprazole (PRILOSEC) 40 mg capsule Take 1 capsule by mouth once daily. No current facility-administered medications on file prior to visit. Social History Social History Tobacco Use Smoking status: Former Types: Cigarettes Smokeless tobacco: Never Tobacco comments: approx 2 cigs yearly Substance Use Topics Alcohol use: Yes Alcohol/week: 14.0 standard drinks of alcohol Types: 14 Cans of Beer (12oz) per week Drug use: No Review of Symptoms REVIEW OF SYSTEMS See HPI EXAM: BP 118/96 (BP Site: Left Arm, BP Position: Sitting, BP Cuff Size: Large Adult) Pulse 84 Temp 37.6 ?C (99.6 ?F) (Tympanic) Resp 16 Wt 120.7 kg (266 lb) BMI 37.10 kg/m? General Appearance: Well appearing, alert, in no acute distress, well-hydrated, well nourished. and Obese. Skin: Has mild erythema and swelling of the right olecranon region, right lateral foot and 1st MP right foot. The skin on the lateral side of the right big toe is erythematous swollen and has pus. . Musculoskeletal: the right elbow, right 1st MP joint of foot and lateral side of right foot are all tender to palpation and warm to touch. . Health Maintenance List Depression Screening Never done Anxiety Screening Never done Hepatitis C Screening Never done HIV Screening Never done Hepatitis B Vaccine(1 of 3 - 19+ 3-dose series) Never done Lipid Screening Never done DTaP,Tdap,Td Vaccine(2 - Td or Tdap) due on 01/17/2021 Influenza Vaccine(1) due on 04/19/2024 Covid-19 Vaccine(3 - 2023- season) due on 04/19/2024 HPV Vaccine Aged Out Data reviewed A/P ASSESSMENT/PLAN: 1. Acute gout of multiple sites, unspecified cause - ICD9: 274.01, ICD10: M10.9 (primary diagnosis) - will treat with colchicine and steroid. - 5-7 days after pain stops patient is to start the allopurinol 300 mg a day. Check uric acid in a month. 2. Paronychia of great toe of right foot - ICD9: 681.11, ICD10: L03.031 - Begin treatment with Cefadroxil (Duricef) as below - cont [employer] salt soaks 3. Current severe episode of major depressive disorder without psychotic features without prior episode (HCC) - ICD9: 296.23, ICD10: F32.2 - will start sertraline. Discussed side affects 4. HEIDI (generalized anxiety disorder) - ICD9: 300.02, ICD10: F41.1 - as per #3 5. Ingrown nail of great toe of right foot - ICD9: 703.0, ICD10: L60.0 - f/u in 3-4 weeks for removal of nail. Requested Prescriptions Signed Prescriptions Disp Refills colchicine 0.6 mg tablet 10 tablet 1 Sig: Take one tab by mouth 3 times a day till pain stops or script finished. predniSONE (DELTASONE) 20 mg tablet 15 tablet 0 Si tabs a day by mouth for the next 5 days cefADROxil (DURICEF) 500 mg capsule 20 capsule 0 Sig: Take 1 capsule by mouth two times a day for 10 days. allopurinol (ZYLOPRIM) 300 mg tablet 30 tablet 5 Sig: Take 1 table (more content not included)... Normal [facility] CNOVon 03-15-2024 CNOV Office Visit (UCWSTR ) TERRIERIC ([id number]) 1980 M Date Time Provider Department 03/15/24 8:30 AM PARTH KWONG [facility] [place] During your visit today, we recorded the following information about you: Temperature Pulse Respiration Blood pressure 97.8 degrees 75/minute 20/minute 116/88 Weight 125.2 kg Parth Kwong APRN.BOARD WRITER 03/15/2024 8:42 AM Signed This note was created using [employer]. Subjective Eric Araiza is a 44 year old male. HPI Pt has had symptoms consistent with a gout flare in his left wrist for the last three weeks. Patient then developed a flare in his right great toe about 2 weeks ago. He did have a virtual visit March 04 where he was prescribed a Medrol Dosepak. He states that for him, this level of prednisone often is ineffective. He did take the Medrol Dosepak which did alleviate the toe pain but the wrist pain continues. He otherwise denies any known trauma. He does have a history of gout flares, typically with no specific triggering event. Review of Systems Constitutional: Negative for fatigue and fever. Musculoskeletal: Positive for arthralgias and joint swelling. Objective BP 116/88 Pulse 75 Temp 36.6 ?C (97.8 ?F) Resp 20 Wt 125.2 kg (276 lb 0.3 oz) SpO2 98% BMI 38.50 kg/m? Physical Exam Vitals and nursing note reviewed. Constitutional: General: He is not in acute distress. Appearance: Normal appearance. He is not ill-appearing. HENT: Head: Normocephalic. Mouth/Throat: Mouth: Mucous membranes are moist. Eyes: Conjunctiva/sclera: Conjunctivae normal. Cardiovascular: Rate and Rhythm: Normal rate and regular rhythm. Pulmonary: Effort: Pulmonary effort is normal. Breath sounds: Normal breath sounds. Musculoskeletal: Cervical back: Normal range of motion. Comments: Mild erythema noted of the left wrist. Pain with any range of motion. Limited range of motion of left wrist. Skin: General: Skin is warm and dry. Neurological: General: No focal deficit present. Mental Status: He is alert. Psychiatric: Mood and Affect: Mood normal. Behavior: Behavior normal. Assessment and Plan ASSESSMENT/PLAN: 1. Acute gout of left wrist, unspecified cause - ICD9: 274.01, ICD10: M10.9 Patient will hold his allopurinol until the gout flare has subsided. He was given a 5-day course of prednisone. Discussed OTC pain medication such as ibuprofen and Tylenol. Patient will follow-up with PCP. - PREDNISONE 50 MG TABLET Parth Kwong APRN.CNP Allergies As of Date: 03/15/2024 (No Known Allergies) Date Reviewed: 03/15/2024 Reviewed by: Parth Kwong APRN.BOARD WRITER - Fully Assessed Reason for Visit: Pain [78] Cmt: Left wrist pain/swelling x 1 week Primary Visit Diagnosis:Acute gout of left wrist, unspecified cause [M10.9] Order(s):predniSONE (DELTASONE) 50 mgTake 1 tablet by mouth once daily for 5 days.Disp: 5 tabletRfl: 0 Prescriptions as of 03/15/2024 - predniSONE (DELTASONE) 50 mg Take 1 tablet by mouth once daily for 5 days. - methylPREDNISolone (MEDROL, CAMI,) 4 mg Dose-Pack As instructed per package - allopurinol (ZYLOPRIM) 100 mg tablet Take 1 tablet by mouth two times a day. For gout. - omeprazole (PRILOSEC) 40 mg capsule Take 1 capsule by mouth once daily. Problem List As Of Date 03/15/2024 Noted Resolved Insomnia [G47.00] 09/29/2013 Sciatica [M54.30] 09/29/2013 Gout [M10.9] 10/29/2022 Ex-smoker [Z87.891] 10/29/2022 Chews tobacco [Z72.0] 10/29/2022 Prescriptions ordered this encounter Disp Refills Start End PREDNISONE 50 MG TABLET 5 ta* 0 03/15/2024 03/20/2024 Route: ORAL Sig: Take 1 tablet by mouth once daily for 5 days. Encounter Status:Closed by PARTH KWONG on 03/15/24 [facility] CNOVon 10-29-2023 CNOV Office Visit (UCWSTR ) ERIC ARAIZA ([id number]) 1980 M Date Time Provider Department 10/29/23 8:30 AM KEREN PALOMO [facility] [place] During your visit today, we recorded the following information about you: Temperature Pulse Respiration Blood pressure 97.2 degrees 75/minute 21/minute 120/92 Weight 124.4 kg Keren Palomo APRN.BOARD WRITER 10/29/2023 8:54 AM Signed Subjective HPI Eric Terri is a 43 year old male who presents with left knee pain for the past 2 days. He states it is gout, he has had it in the past in same joint and pain is consistent. He notes swelling and tenderness in left knee, yesterday pain was so bad he almost passed out. He denies injury. He has not had a fever. He has taken prednisone in the past for gout with good relief of pain. Review of Systems Constitutional: Negative for chills and fever. Respiratory: Negative. Cardiovascular: Negative. Musculoskeletal: Positive for joint pain. Negative for falls. BP 120/92 Pulse 75 Temp 36.2 ?C (97.2 ?F) Resp 21 Wt 124.4 kg (274 lb 4 oz) SpO2 98% BMI 38.25 kg/m? PAST MEDICAL HISTORY Diagnosis Date Bicuspid aortic valve Fussion Chews tobacco 10/29/2022 Started age 17. Ex-smoker 10/29/2022 Started at age 17 and was smoking 1 pack every two weeks or more. No past surgical history on file. ALLERGIES Patient has no known allergies. MEDICATIONS allopurinol (ZYLOPRIM) 100 mg tabletTake 1 tablet by mouth two times a day. For gout.Disp: 60 tabletRfl: 11 omeprazole (PRILOSEC) 40 mg capsuleTake 1 capsule by mouth once daily.Disp: 30 capsuleRfl: 3 predniSONE (DELTASONE) 10 mg tabletTake 4 tabs daily for 3 days, then 2 tabs daily for 3 days, then 1 tab daily for 3 days with food.Disp: 21 tabletRfl: 0 FAMILY HISTORY Problem Relation Age of Onset None Unknown pt adopted Social History Tobacco Use Smoking status: Former Types: Cigarettes Smokeless tobacco: Never Tobacco comments: approx 2 cigs yearly Substance Use Topics Alcohol use: Yes Alcohol/week: 14.0 standard drinks of alcohol Types: 14 Cans of Beer (12oz) per week Drug use: No Objective Physical Exam Vitals and nursing note reviewed. Constitutional: General: He is not in acute distress. Appearance: Normal appearance. He is not ill-appearing. Cardiovascular: Rate and Rhythm: Normal rate. Pulmonary: Effort: Pulmonary effort is normal. Musculoskeletal: General: Swelling and tenderness present. No signs of injury. Legs: Comments: Left calf measures 46 cm Right calf measures 45 cm Knee swelling left knee with slight erythema of skin Skin: General: Skin is warm and dry. Capillary Refill: Capillary refill takes less than 2 seconds. Findings: Erythema present. No bruising or rash. Neurological: Mental Status: He is alert. ASSESSMENT/PLAN: 1. Acute gout of left knee, unspecified cause - ICD9: 274.01, ICD10: M10.9 - PREDNISONE 10 MG TABLET - Follow-up with your PCP in 3-5 days if symptoms have not improved or sooner if symptoms worsen - Discussed red flags and need for immediate medical evaluation if any occur. - Discussed supportive care treatment with fluids, rest and analgesia. - Discussed expected course of illness CORTEZ Das Kathy, APRN.CNP 10/29/2023 8:53 AM Signed ASSESSMENT/PLAN: 1. Acute gout of left knee, unspecified cause - ICD9: 274.01, ICD10: M10.9 - PREDNISONE 10 MG TABLET - Follow-up with your PCP in 3-5 days if symptoms have not improved or sooner if symptoms worsen - Discussed red flags and need for immediate medical evaluation if any occur. - Discussed supportive care treatment with fluids, rest and analgesia. - Discussed expected course of illness Keren Palomo APRN.CNP Allergies As of Date: 10/29/2023 (No Known Allergies) Date Reviewed: 10/29/2023 Reviewed by: Ailyn Reardon MA - Fully Assessed Reason for Visit: Knee Pain [132] Cmt: Possible gout in left knee, swelling and pain x 2 days Primary Visit Diagnosis:Acute gout of left knee, unspecified cause [M10.9] Order(s):predniSONE (DELTASONE) 10 mg tabletTake 4 tabs daily for 3 days, then 2 tabs daily for 3 days, then 1 tab daily for 3 days with food.Disp: 21 tabletRfl: 0 Prescriptions as of 10/29/2023 - predniSONE (DELTASONE) 10 mg tablet Take 4 tabs daily for 3 days, then 2 tabs daily for 3 days, then 1 tab daily for 3 days with food. - allopurinol (ZYLOPRIM) 100 mg tablet Take 1 tablet by mouth two times a day. For gout. - omeprazole (PRILOSEC) 40 mg capsule Take 1 capsule by mouth once daily. Facility-Administered Medications as of 10/29/2023 - perflutren lipid microspheres 1.3 mL in NaCl (PF) 0.9% 10 mL injection (DEFINITY) - sodium chloride 0.9 % (flush) 10 mL (BD POSIFLUSH) Problem List As Of Date 10/29/2023 Noted Resolved Insomnia [G47.00] 09/29/2013 (more content not included)... Normal [facility] SPIROMETRY - BASELINE AND PO ST DILATORon 11-05-2022 [id number]% POST (L/S) 4.33 L/S [facility] IUF04-98% PRE (L/S) 4.22 L/S [facility] FEV1 PRE (L) 4.[address] [facility] FEV1/FVC POST (%) 81 % [facility] [facility] FEV1/FVC PRE (%) 80 % [facility] FEV1_POST (L) 4.[address] [facility] FVC POST (L) 5.[address] [facility] FVC PRE (L) 5.[address] [facility] PEF POST (L/S) 11.24 L/S [facility] PEF PRE (L/S) 10.03 L/S [facility] CBC W Auto Differential pane l (Bld)on 10-30-2022 Basophils (Bld) [#/Vol] 0.09 10*3/uL <0.11 k/uL [facility] Basophils/100 WBC (Bld) 0.9 % [facility] Differential cell count method Nom (Bld) Auto [facility] Eosinophils (Bld) [#/Vol] 0.03 10*3/uL <0.46 k/uL [facility] Eosinophils/100 WBC (Bld) 0.3 % [facility] Erythrocyte distribution width (RBC) [Ratio] 12.6 % 11.5 - 15.0 % [facility] Hematocrit (Bld) [Volume fraction] 47.7 % 39.0 - 51.0 % [facility] Hemoglobin (Bld) [Mass/Vol] 15.9 g/dL 13.0 - 17.0 g/dL [facility] Immature granulocytes (Bld) [#/Vol] 0.03 10*3/uL <0.10 k/uL [facility] Immature granulocytes/100 WBC (Bld) 0.3 % [facility] Lymphocytes (Bld) [#/Vol] 3.22 10*3/uL 1.00 - 4.00 k/uL [facility] Lymphocytes/100 WBC (Bld) 31.1 % [facility] MCH (RBC) [Entitic mass] 29.7 pg 26.0 - 34.[address] [facility] MCHC (RBC) [Mass/Vol] 33.3 g/dL 30.5 - 36.0 g/dL [facility] MCV (RBC) [Entitic vol] 89.2 fL 80.0 - 100.[address] [facility] Monocytes (Bld) [#/Vol] 0.66 10*3/uL <0.87 k/uL [facility] Monocytes/100 WBC (Bld) 6.4 % [facility] Neutrophils (Bld) [#/Vol] 6.31 10*3/uL 1.45 - 7.50 k/uL [facility] Neutrophils/100 WBC (Bld) 61.0 % [facility] Nucleated RBC (Bld) [#/Vol] <0.01 k/uL [facility] Nucleated RBC/100 WBC (Bld) [Ratio] 0.0 /[address] [facility] Platelet mean volume (Bld) [Entitic vol] 11.5 fL 9.0 - 12.[address] [facility] Platelets (Bld) [#/Vol] 274 10*3/uL 150 - 400 k/uL [facility] RBC (Bld) [#/Vol] 5.35 10*6/uL 4.20 - 6.0 0 m/uL [facility] WBC (Bld) [#/Vol] 10.34 10*3/uL 3.70 - 11 .00 k/uL [facility] XR CHEST 2V FRONTAL/LATon [facility] XR Chest PA and Lateralon IMPRESSION: No acute radiographic abnormality. Commercial Development Manager: JOVITA Transcribe Date/Time: Oct 29 2022 5:06P Dictated by : ALPHONSE TUCKER MD This examination was interpreted and the report reviewed and electronically signed by: ALPHONSE TUCKER MD on Oct 29 2022 5:07PM [facility] DIVISION OF RADIOLOGY * * *Final Report* * * DATE OF EXAM: Oct 29 2022 5:01PM WOX [id number] - XR CHEST 2V FRONTAL/LAT / PROCEDURE REASON: multiple diagnoses * * * * Physician Interpretation * * * * EXAMINATION: CHEST RADIOGRAPH (2 VIEW FRONTAL & LATERAL) CLINICAL HISTORY: Chest pain, unspecified type SOB (shortness of breath) MQ: XC2_6 EXAM DATE/TIME: 10/29/2022 5:01 PM COMPARISON: No relevant prior studies available. RESULT: Lines, tubes, and devices: None. Lungs and pleura: No consolidation. No lung mass. No pleural effusion. No pneumothorax. Cardiomediastinal silhouette: Normal cardiomediastinal silhouette. Bones and soft tissues: There are mild degenerative changes in the spine. DIVISION OF RADIOLOGY Provider, [facility] - 10/29/2022 * * *Final Report* * * DATE OF EXAM: Oct 29 2022 5:01PM WOX [id number] - XR CHEST 2V FRONTAL/LAT / PROCEDURE REASON: multiple diagnoses * * * * Physician Interpretation * * * * EXAMINATION: CHEST RADIOGRAPH (2 VIEW FRONTAL & LATERAL) CLINICAL HISTORY: Chest pain, unspecified type SOB (shortness of breath) MQ: XC2_6 EXAM DATE/TIME: 10/29/2022 5:01 PM COMPARISON: No relevant prior studies available. RESULT: Lines, tubes, and devices: None. Lungs and pleura: No consolidation. No lung mass. No pleural effusion. No pneumothorax. Cardiomediastinal silhouette: Normal cardiomediastinal silhouette. Bones and soft tissues: There are mild degenerative changes in the spine. IMPRESSION IMPRESSION: No acute radiographic abnormality. Commercial Development Manager: JOVITA Transcribe Date/Time: Oct 29 2022 5:06P Dictated by : ALPHONSE TUCKER MD This examination was interpreted and the report reviewed and electronically signed by: ALPHONSE TUCKER MD on Oct 29 2022 5:07PM EST [facility] Radiology Study observation (narrative) [facility] XR Chest PA and LateralOrder ed By: [facility] Provider on 10-29-[address] [facility] UA DIP, URINE (POC)on 2021 BILIRUBIN UA (POCT) Negative Negative [facility] CLARITY UA (POCT) Clear [facility] COLOR UA (POCT) Yellow [facility] GLUCOSE UA (POCT) Negative Negative mg/dL [facility] HEMOGLOBIN/BLOOD UA (POCT) Negative Negative [facility] KETONE UA (POCT) Negative Negative mg/dL [facility] LEUKOCYTES UA (POCT) Negative Negative [facility] NITRITE UA (POCT) Negative Negative [facility] PH UA (POCT) 5.5 4.5 - 8.[address] [facility] Protein Ql (U) Negative Negative mg/dL [facility] SPECIFIC GRAVITY UA (POCT) 1.020 1.005 - 1.[address] [facility] UROBILINOGEN UA (POCT) 0.2 E.U./dL Normal E.U./dL [facility] Vital Signs Date Time Vital Sign Value Performing Clinician Facility 05-03-2025 07:34-0400 Body temperature 98 [degF] Dr. Bert Johnson DO Work Phone: [facility] 05-03-2025 07:34-0400 Diastolic blood pressure 87 mm[Hg] Dr. Bert Johnson DO Work Phone: [facility] 05-03-2025 07:34-0400 Heart rate 69 /min Dr. Bert Johnson DO Work Phone: [facility] 05-03-2025 07:34-0400 Respiratory rate 18 /min Dr. Bert Johnson DO Work Phone: [facility] 05-03-2025 07:34-0400 SaO2% (BldA) [Mass fraction] 98 % Dr. Bert Johnson DO Work Phone: [facility] 05-03-2025 07:34-0400 Systolic blood pressure 109 mm[Hg] Dr. Bert Johnson DO Work Phone: [facility] 05-03-2025 06:48-0400 Body height 182.[address] Bert Johnson DO Work Phone: [facility] 05-03-2025 06:48-0400 Body mass index (BMI) [Ratio] 36.8 kg/m2 Dr. Bert Johnson DO Work Phone: [facility] 05-03-2025 06:48-0400 Body weight [address] Bert Johnson DO Work Phone: [facility] 04-28-2025 07:56-0400 Body height 182.[address] Bert Johnson DO Work Phone: [facility] 04-28-2025 07:47-0400 Body mass index (BMI) [Ratio] 35.9 kg/m2 Dr. Bert Johnson DO Work Phone: [facility] 04-28-2025 07:47-0400 Body temperature 98.3 [degF] Dr. Bert Johnson DO Work Phone: [facility] 04-28-2025 07:47-0400 Body weight 120.[address] Bert Johnson DO Work Phone: [facility] 04-28-2025 07:47-0400 Diastolic blood pressure 78 mm[Hg] Dr. Bert Johnson DO Work Phone: [facility] 04-28-2025 07:47-0400 Heart rate 67 /min Dr. Bert Johnson DO Work Phone: [facility] 04-28-2025 07:47-0400 Respiratory rate 16 /min Dr. Bert Johnson DO Work Phone: [facility] 04-28-2025 07:47-0400 SaO2% (BldA) [Mass fraction] 97 % Dr. Bert Johnson DO Work Phone: [facility] 04-28-2025 07:47-0400 Systolic blood pressure 120 mm[Hg] Dr. Bert Johnson DO Work Phone: [facility] 08-20-2024 13:43-0500 Body mass index (BMI) [Ratio] 35.79 kg/m2 Quita Nell MATERIALS ENGINEERING TECHNICIAN.BOARD WRITER Work Phone: [facility] 08-20-2024 13:43-0500 Body weight 116.4 kg Quita Nell MATERIALS ENGINEERING TECHNICIAN.BOARD WRITER Work Phone: [facility] 08-20-2024 13:43-0500 Diastolic blood pressure 78 mm[Hg] Quita Nell MATERIALS ENGINEERING TECHNICIAN.BOARD WRITER Work Phone: [facility] 08-20-2024 13:43-0500 Heart rate 85 /min Quita Nell MATERIALS ENGINEERING TECHNICIAN.BOARD WRITER Work Phone: [facility] 08-20-2024 13:43-0500 SaO2% (BldA) [Mass fraction] 100 % Quita Nell MATERIALS ENGINEERING TECHNICIAN.BOARD WRITER Work Phone: [facility] 08-20-2024 13:43-0500 Systolic blood pressure 110 mm[Hg] Quita Nell MATERIALS ENGINEERING TECHNICIAN.BOARD WRITER Work Phone: [facility] 07-01-2024 17:35-0500 Diastolic blood pressure 82 mm[Hg] Chance Ferro MD Work Phone: [facility] 07-01-2024 17:35-0500 Systolic blood pressure 118 mm[Hg] Chance Ferro MD Work Phone: [facility] 07-01-2024 17:27-0500 Body mass index (BMI) [Ratio] 35.84 kg/m2 Chance Ferro MD Work Phone: [facility] 07-01-2024 17:27-0500 Body weight 116.57 kg Chance Ferro MD Work Phone: [facility] 07-01-2024 17:27-0500 Heart rate 82 /min Chance Ferro MD Work Phone: [facility] 07-01-2024 17:27-0500 Respiratory rate 16 /min Chance Ferro MD Work Phone: [facility] 06-12-2024 15:42-0400 Body mass index (BMI) [Ratio] 35.84 kg/m2 Chance Ferro MD Work Phone: [facility] 06-12-2024 15:42-0400 Body weight 116.57 kg Chance Ferro MD Work Phone: [facility] 06-12-2024 15:42-0400 Diastolic blood pressure 88 mm[Hg] Chance Ferro MD Work Phone: [facility] 06-12-2024 15:42-0400 Heart rate 76 /min Chance Ferro MD Work Phone: [facility] 06-12-2024 15:42-0400 Respiratory rate 16 /min Chance Ferro MD Work Phone: [facility] 06-12-2024 15:42-0400 Systolic blood pressure 126 mm[Hg] Chance Ferro MD Work Phone: [facility] 05-27-2024 16:29-0400 Body mass index (BMI) [Ratio] 37.1 kg/m2 Chance Ferro MD Work Phone: [facility] 05-27-2024 16:29-0400 Body temperature 99.61 [degF] Chance Ferro MD Work Phone: [facility] 05-27-2024 16:29-0400 Body weight 120.66 kg Chance Ferro MD Work Phone: [facility] 05-27-2024 16:29-0400 Diastolic blood pressure 96 mm[Hg] Chance Ferro MD Work Phone: [facility] 05-27-2024 16:29-0400 Heart rate 84 /min Chance Ferro MD Work Phone: [facility] 05-27-2024 16:29-0400 Respiratory rate 16 /min Chance Ferro MD Work Phone: [facility] 05-27-2024 16:29-0400 Systolic blood pressure 118 mm[Hg] Chance Ferro MD Work Phone: [facility] 03-15-2024 08:31-0400 Body mass index (BMI) [Ratio] 38.5 kg/m2 Parth Moomaw MATERIALS ENGINEERING TECHNICIAN.BOARD WRITER Work Phone: [facility] 03-15-2024 08:31-0400 Body temperature 97.81 [degF] Parth Moomaw MATERIALS ENGINEERING TECHNICIAN.BOARD WRITER Work Phone: [facility] 03-15-2024 08:31-0400 Body weight 125.2 kg Parth Moomaw MATERIALS ENGINEERING TECHNICIAN.BOARD WRITER Work Phone: [facility] 03-15-2024 08:31-0400 Diastolic blood pressure 88 mm[Hg] Parth Moomaw MATERIALS ENGINEERING TECHNICIAN.BOARD WRITER Work Phone: [facility] 03-15-2024 08:31-0400 Heart rate 75 /min Parth Moomaw MATERIALS ENGINEERING TECHNICIAN.BOARD WRITER Work Phone: [facility] 03-15-2024 08:31-0400 Respiratory rate 20 /min Parth Moomaw MATERIALS ENGINEERING TECHNICIAN.BOARD WRITER Work Phone: [facility] 03-15-2024 08:31-0400 SaO2% (BldA) [Mass fraction] 98 % Parth Moomaw MATERIALS ENGINEERING TECHNICIAN.BOARD WRITER Work Phone: [facility] 03-15-2024 08:31-0400 Systolic blood pressure 116 mm[Hg] Parth Moomaw MATERIALS ENGINEERING TECHNICIAN.BOARD WRITER Work Phone: [facility] 10-29-2023 08:36-0400 Body temperature 97.2 [degF] Keren Praisler-Wood MATERIALS ENGINEERING TECHNICIAN.BOARD WRITER Work Phone: [facility] 10-29-2023 08:36-0400 Body weight 124.4 kg Keren Praisler-Wood MATERIALS ENGINEERING TECHNICIAN.BOARD WRITER Work Phone: [facility] 10-29-2023 08:36-0400 Diastolic blood pressure 92 mm[Hg] Keren Praisler-Wood MATERIALS ENGINEERING TECHNICIAN.BOARD WRITER Work Phone: [facility] 10-29-2023 08:36-0400 Heart rate 75 /min Keren Praisler-Wood MATERIALS ENGINEERING TECHNICIAN.BOARD WRITER Work Phone: [facility] 10-29-2023 08:36-0400 Respiratory rate 21 /min Keren Praisler-Wood MATERIALS ENGINEERING TECHNICIAN.BOARD WRITER Work Phone: [facility] 10-29-2023 08:36-0400 SaO2% (BldA) [Mass fraction] 98 % Keren Praisler-Wood MATERIALS ENGINEERING TECHNICIAN.BOARD WRITER Work Phone: [facility] 10-29-2023 08:36-0400 Systolic blood pressure 120 mm[Hg] Keren Praisler-Wood MATERIALS ENGINEERING TECHNICIAN.BOARD WRITER Work Phone: [facility] 06-07-2023 08:16-0400 Body weight 127.91 kg Carolyn Tannhof MATERIALS ENGINEERING TECHNICIAN.BOARD WRITER Work Phone: [facility] 06-07-2023 08:16-0400 Diastolic blood pressure 80 mm[Hg] Carolyn Tannhof MATERIALS ENGINEERING TECHNICIAN.BOARD WRITER Work Phone: [facility] 06-07-2023 08:16-0400 Heart rate 71 /min Carolyn Wolfhof MATERIALS ENGINEERING TECHNICIAN.BOARD WRITER Work Phone: [facility] 06-07-2023 08:16-0400 Respiratory rate 16 /min Carolyn Wolfhof MATERIALS ENGINEERING TECHNICIAN.BOARD WRITER Work Phone: [facility] 06-07-2023 08:16-0400 SaO2% (BldA) [Mass fraction] 97 % Carolyn Wolfhof MATERIALS ENGINEERING TECHNICIAN.BOARD WRITER Work Phone: [facility] 06-07-2023 08:16-0400 Systolic blood pressure 110 mm[Hg] Carolyn Wolfhof MATERIALS ENGINEERING TECHNICIAN.BOARD WRITER Work Phone: [facility] 11-05-2022 15:13-0400 Body height 180.3 cm Pulm Wstr Work Phone: [facility] 11-05-2022 15:13-0400 Body weight 118.39 kg Pulm Wstr Work Phone: [facility] 11-05-2022 15:13-0400 Heart rate 96 /min Pulm Wstr Work Phone: [facility] 11-05-2022 15:13-0400 Respiratory rate 14 /min Pulm Wstr Work Phone: [facility] 11-05-2022 15:13-0400 SaO2% (BldA) [Mass fraction] 97 % Pulm Wstr Work Phone: [facility] 10-29-2022 16:38-0400 Diastolic blood pressure 78 mm[Hg] Chance Ferro MD Work Phone: [facility] 10-29-2022 16:38-0400 Systolic blood pressure 118 mm[Hg] Chance Ferro MD Work Phone: [facility] 06-16-2022 10:32-0400 Body temperature 98.71 [degF] Kash Loera MATERIALS ENGINEERING TECHNICIAN.BOARD WRITER Work Phone: [facility] 06-16-2022 10:32-0400 Body weight 120.2 kg Kash Loera MATERIALS ENGINEERING TECHNICIAN.BOARD WRITER Work Phone: [facility] 06-16-2022 10:32-0400 Diastolic blood pressure 82 mm[Hg] Kash Evaristo MATERIALS ENGINEERING TECHNICIAN.BOARD WRITER Work Phone: [facility] 06-16-2022 10:32-0400 Heart rate 82 /min Kash Evaristo MATERIALS ENGINEERING TECHNICIAN.BOARD WRITER Work Phone: [facility] 06-16-2022 10:32-0400 Respiratory rate 16 /min Kash Evaristo MATERIALS ENGINEERING TECHNICIAN.BOARD WRITER Work Phone: [facility] 06-16-2022 10:32-0400 SaO2% (BldA) [Mass fraction] 97 % Kash Evaristo MATERIALS ENGINEERING TECHNICIAN.BOARD WRITER Work Phone: [facility] 06-16-2022 10:32-0400 Systolic blood pressure 162 mm[Hg] Kash Evaristo MATERIALS ENGINEERING TECHNICIAN.BOARD WRITER Work Phone: [facility] 05-01-2022 14:59-0400 Body temperature 98.01 [degF] Jennifer King MATERIALS ENGINEERING TECHNICIAN.BOARD WRITER Work Phone: [facility] 05-01-2022 14:59-0400 Body weight 121.56 kg Jennifer King MATERIALS ENGINEERING TECHNICIAN.BOARD WRITER Work Phone: [facility] 05-01-2022 14:59-0400 Diastolic blood pressure 80 mm[Hg] Jennifer King MATERIALS ENGINEERING TECHNICIAN.BOARD WRITER Work Phone: [facility] 05-01-2022 14:59-0400 Heart rate 68 /min Jennifer King MATERIALS ENGINEERING TECHNICIAN.BOARD WRITER Work Phone: [facility] 05-01-2022 14:59-0400 Respiratory rate 16 /min Jennifer King MATERIALS ENGINEERING TECHNICIAN.BOARD WRITER Work Phone: [facility] 05-01-2022 14:59-0400 SaO2% (BldA) [Mass fraction] 97 % Jennifer King MATERIALS ENGINEERING TECHNICIAN.BOARD WRITER Work Phone: [facility] 05-01-2022 14:59-0400 Systolic blood pressure 122 mm[Hg] Jennifer King MATERIALS ENGINEERING TECHNICIAN.BOARD WRITER Work Phone: [facility] 11-23-2021 15:46-0400 Body height 182.[address] Bert Johnson Work Phone: [facility] Work Phone: 11-23-2021 15:46-0400 Body mass index (BMI) [Ratio] 35.9 kg/m2 Dr. Bert Johnson Work Phone: [facility] Work Phone: 11-23-2021 15:46-0400 Body weight 120.[address] Bert Johnson Work Phone: [facility] Work Phone: 11-23-2021 15:46-0400 Diastolic blood pressure 78 mm[Hg] Dr. Bert Johnson Work Phone: [facility] Work Phone: 11-23-2021 15:46-0400 Heart rate 88 /min Dr. Bert Johnson Work Phone: [facility] Work Phone: 11-23-2021 15:46-0400 Respiratory rate 16 /min Dr. Bert Johnson Work Phone: [facility] Work Phone: 11-23-2021 15:46-0400 Systolic blood pressure 118 mm[Hg] Dr. Bert Johnson Work Phone: [facility] Work Phone: Encounters Encounter Date Encounter Type Care Provider Facility Start: 05-03-2025 End: 05-03-2025 Emergency department patient visit Dr. Bert Johnson DO Work Phone: -Emergency Department Work Phone: Start: 04-28-2025 End: 04-28-[address] Gordo Cisneros MD [facility] Start: 04-28-2025 End: 04-28-[address] Bert Johnson DO Work Phone: [facility] Start: 08-20-2024 End: 08-20-2024 ambulatory CHANCE FERRO Facility:[facility] Start: 08-20-2024 End: 08-20-2024 Office outpatient visit 15 minutes Quita Martin CORTEZ Work Phone: [facility] Comment on above: Ingrown nail of grea t toe of right foot (Primary Dx); Gout, unspecified cause, unspecified chronicity, unspecified site; Cellulitis of skin Start: 07-01-2024 End: 07-01-2024 ambulatory CHANCE FERRO Facility:[facility] Start: 07-01-2024 End: 07-01-2024 Patient encounter procedure Chance Ferro MD Work Phone: [facility] Comment on above: Ingrown nail of grea t toe of right foot (Primary Dx) Start: 06-14-2024 End: 06-16-2024 Telephone encounter Chance Ferro MD Work Phone: [facility] Comment on above: Results Start: 06-12-2024 End: 06-12-2024 ambulatory CHANCE FERRO Facility:[facility] Start: 06-12-2024 End: 06-12-2024 Patient encounter procedure Chance Ferro MD Work Phone: [facility] Comment on above: Ingrown toenail (Abimbola brian Dx) Start: 06-12-2024 End: 06-12-2024 ambulatory CHANCE FERRO Facility:[facility] Start: 06-09-2024 End: 06-10-2024 Refill Chance Ferro MD Work Phone: [facility] Comment on above: Refill Request Start: 05-27-2024 End: 05-27-2024 ambulatory CHANCE FERRO Facility:[facility] Start: 05-27-2024 End: 05-27-2024 Patient encounter procedure Chance Ferro MD Work Phone: [facility] Comment on above: Acute gout of multip le sites, unspecified cause (Primary Dx); Paronychia of great toe of right foot; Current severe episode of major depressive disorder without psychotic features without prior episode (HCC); HEIDI (generalized anxiety disorder); Ingrown nail of great toe of right foot Start: 03-15-2024 End: 03-15-2024 ambulatory CHANCE PILLO Facility:[facility] Start: 03-15-2024 End: 03-15-2024 Patient encounter procedure Parth Kwong MATERIALS ENGINEERING TECHNICIAN.BOARD WRITER Work Phone: [facility] Comment on above: Acute gout of left w rist, unspecified cause (Primary Dx) Start: 03-05-2024 End: 03-05-2024 ambulatory [facility] Facility:[facility] Start: 03-05-2024 End: 03-05-2024 Telemedicine consultation with patient Estee Mejia MATERIALS ENGINEERING TECHNICIAN.BOARD WRITER Work Phone: Telemedicine Comment on above: Acute gout involving toe of right foot, unspecified cause (Primary Dx) Start: 12-11-2023 ambulatory Carolyn Bueno APRN.BOARD WRITER Work Phone: [facility] Comment on above: Referal Start: 10-29-2023 End: 10-29-2023 ambulatory [facility] Facility:[facility] Start: 10-29-2023 End: 10-29-2023 Patient encounter procedure Keren Palomo MATERIALS ENGINEERING TECHNICIAN.BOARD WRITER Work Phone: [facility] Comment on above: Acute gout of left k nee, unspecified cause (Primary Dx) Start: 06-07-2023 End: 06-07-2023 Patient encounter procedure Carolyn Bueno MATERIALS ENGINEERING TECHNICIAN.BOARD WRITER Work Phone: [facility] Comment on above: Scalp cyst (Primary Dx); History of gout Start: 11-05-2022 End: 11-05-2022 ambulatory [facility] Work Phone: [facility] Comment on above: Spirometry Start: 11-05-2022 End: 11-05-2022 Patient encounter procedure [facility] Work Phone: [facility] Start: 11-05-2022 Telephone encounter Chance Ferro MD Work Phone: [facility] Comment on above: Results Start: 11-01-2022 Telephone encounter Poonam schafer PA-C Work Phone: [facility] Comment on above: Results Start: 10-29-2022 End: 10-29-2022 Subsequent hospital visit by physician Xr [facility] Work Phone: Radiology Comment on above: Chest pain, unspecif ied type [R07.9] Start: 10-29-2022 End: 10-29-2022 Patient encounter procedure Chance Ferro MD Work Phone: [facility] Comment on above: Palpitations (Primar y Dx); Chest pain, unspecified type; SOB (shortness of breath); Ex-smoker; Chews tobacco; Bicuspid aortic valve; GERD without esophagitis Start: 10-29-2022 Telephone encounter Chance Ferro MD Work Phone: [facility] Comment on above: Results Start: 06-16-2022 End: 06-16-2022 Patient encounter procedure Kash Loera MATERIALS ENGINEERING TECHNICIAN.BOARD WRITER Work Phone: [facility] Comment on above: Patellar bursitis of left knee (Primary Dx) Start: 05-02-2022 Telephone encounter Jennifer calix MATERIALS ENGINEERING TECHNICIAN.BOARD WRITER Work Phone: [facility] Comment on above: Results Start: 05-01-2022 End: 05-01-2022 Patient encounter procedure Jennifer King MATERIALS ENGINEERING TECHNICIAN.BOARD WRITER Work Phone: [facility] Comment on above: Abdominal pain, unsp ecified abdominal location (Primary Dx) Start: 01-02-2022 Non-patient / Non-visit Dr. Street Work Phone: [facility] Start: 01-02-2022 End: 01-02-[address] Bert Johnson Work Phone: [facility]-Pulmonary Services/Neurology Start: 11-23-2021 End: 11-23-[address] Bert Johnson Work Phone: [facility] Procedures Date Procedure Procedure Detail Performing Clinician Start: 04-28-2025 XR knee, [address] Yenifer STEPHENS Work Phone: Start: 11-05-2022 Brncdilat rspse spmt ry pre&post-brncdilat admn Chance Ferro MD Work Phone: Start: 10-29-2022 Radiologic exam ches t 2 views Chance Ferro MD Work Phone: Start: 05-01-2022 Urnls dip stick/tabl et rgnt auto w/o microscopy Jennifre King MATERIALS ENGINEERING TECHNICIAN.BOARD WRITER Work Phone: Start: 01-02-2022 CT angiography of ch est with contrast Dr. Bert Johnson Work Phone: Plan of Treatment Date Care Activity Detail Author Start: 05-03-2025 [facility] Start: 04-28-2025 XR Knee [address] [facility] [facility] Start: 04-28-2025 XR knee, [address] [facility] Start: 09-02-2024 End: 09-02-[address] [facility] Comment on above: Physical follow up Start: 07-01-2024 End: 07-01-2024 Patient encounter procedure 07/01/2024 5:40 PM EST Office Visit [facility] [address] [place] [address] Chance Ferro MD [address] [place] [address] 1 mohth follow up right toe [facility] Comment on above: 1 mohth follow up ri ght toe Start: 07-01-2024 End: 07-01-2024 ambulatory 07/01/2024 4:45 PM EST [facility] [address] [facility] [place] [address] [facility] Draw Station Start: 07-01-2024 End: 09-30-2024 Urate [Mass/volume] in Serum or Plasma URIC ACID Lab Routine Acute gout of multiple sites, unspecified cause Expected: 07/01/2024, Expires: 09/30/2024 [facility] Work Phone: Comment on above: Expected: 07/01/2024 , Expires: 09/30/2024 Start: 06-12-2024 End: 06-12-2024 Patient encounter procedure 06/12/2024 4:00 PM EDT Office Visit [facility] [address], [place] [address] Chance Ferro MD [address] [place], [place] [id number] 4 week toe nail removal [facility] Comment on above: 4 week toe nail susan jaimee Start: 06-10-2024 End: 09-09-2024 Urate [Mass/volume] in Serum or Plasma URIC ACID Lab Routine Gout, unspecified cause, unspecified chronicity, unspecified site Expected: 06/10/2024, Expires: 09/09/2024 [facility] Work Phone: Comment on above: Expected: 06/10/2024 , Expires: 09/09/2024 Start: 05-27-2024 End: 05-27-2024 Patient encounter procedure 05/27/2024 6:40 PM EDT Office Visit [facility] [address], [place] [address] Chance Ferro MD [address] [place] [address] foot pain [facility] Comment on above: foot pain Start: 04-19-2024 Covid-19 Vaccine () Covid-19 Vaccine () [facility] Start: 04-19-2024 Influenza vaccination [facility] Start: 08-19-2023 Behavioral Health Screening Behavioral Health Screening [facility] Start: 08-19-2023 Depression Assessment Depression Ass essment [facility] Start: 07-08-2023 End: 10-07-2023 Comprehensive metabolic 2000 panel - Serum or Plasma COMP METABOLIC PANEL Lab Routine History of gout Expected: 07/08/2023, Expires: 10/07/2023 [facility] Work Phone: Comment on above: Expected: 07/08/2023 , Expires: 10/07/2023 Start: 07-08-2023 End: 10-07-2023 Urate [Mass/volume] in Serum or Plasma URIC ACID BLOOD Lab Routine History of gout Expected: 07/08/2023, Expires: 10/07/2023 [facility] Work Phone: Comment on above: Expected: 07/08/2023 , Expires: 10/07/2023 Start: 04-19-2023 Covid-19 Vaccine () Covid-19 Vaccine () [facility] Start: 04-19-2023 Influenza vaccination Influenza Vacc ine (#1) [facility] Start: 10-29-2022 End: 12-29-2022 Comprehensive metabolic 2000 panel - Serum or Plasma [facility] Work Phone: Comment on above: Expected: 10/29/2022 , Expires: 12/29/2022 Start: 10-29-2022 End: 12-29-2022 Helicobacter pylori IgG Ab [Presence] in Serum or Plasma by Immunoassay [facility] Work Phone: Comment on above: Expected: 10/29/2022 , Expires: 12/29/2022 Start: 10-29-2022 End: 12-29-2022 Thyrotropin [Units/volume] in Serum or Plasma [facility] Work Phone: Comment on above: Expected: 10/29/2022 , Expires: 12/29/2022 Start: 10-29-2022 End: 12-29-2022 Thyroxine (T4) free [Mass/volume] in Serum or Plasma [facility] Work Phone: Comment on above: Expected: 10/29/2022 , Expires: 12/29/2022 Start: 08-19-2022 [facility] Start: 05-01-2022 End: 07-01-2022 CBC W Auto Differential panel - Blood [facility] Work Phone: Comment on above: Expected: 05/01/2022 , Expires: 07/01/2022 Start: 05-01-2022 End: 07-01-2022 Comprehensive metabolic 2000 panel - Serum or Plasma [facility] Work Phone: Comment on above: Expected: 05/01/2022 , Expires: 07/01/2022 Start: 05-01-2022 End: 07-01-2022 Lipase [Enzymatic activity/volume] in Serum or Plasma [facility] Work Phone: Comment on above: Expected: 05/01/2022 , Expires: 07/01/2022 Start: 04-19-2022 Influenza vaccination INFLUENZA (#1) [facility] Start: 12-20-2021 COVID-19 VACCINE (3 - Booster for Pfizer series) COVID-19 VACCINE (3 - Booster for Pfizer series) [facility] Start: 09-16-2021 COVID-19 VACCINE (3 - Booster for Pfizer series) COVID-19 VACCINE (3 - Booster for Pfizer series) [facility] Start: 08-19-2021 DEPRESSION ASSESSMENT DEPRESSION ASS [facility] Start: 01-17-2021 Urine microalbumin profile [facility] Start: 02-29-2016 Lipid 1996 panel - S jo ann or Plasma Lipid Screening [facility] Start: 02-29-2016 Lipid panel Lipid Screening [facility] Start: 02-29-2016 LIPID SCREEN LIPID SCREEN [facility] Start: 02-29-2000 Hepatitis B Vaccine (1 of 3 - 19+ 3-dose series) Hepatitis B Vaccine (1 of 3 - 19+ 3-dose series) [facility] Start: 1999 Anxiety Screening Anxiety Screening [facility] Start: 1999 Depression Screening Depression Scre [facility] Start: 1999 HEPATITIS C SCREENING HEPATITIS C [facility] Start: 1999 Hepatitis C screening Hepatitis C [facility] Start: 1999 HIV SCREENING HIV SCREENING [facility] Start: 1999 HIV screening HIV Screening [facility] Start: 1993 Adult depression screening assessment DEPRESSION SCREENING [facility] Start: 1987 PNEUMOCOCCAL (1 - PCV) PNEUMOCOCCAL (1 - PCV) [facility] Start: 1981 HEPATITIS B (1 of 3 - 3-dose series) HEPATITIS B (1 of 3 - 3-dose series) [facility] Start: 1981 Hepatitis B Vaccine (1 of 3 - 3-dose series) Hepatitis B Vaccine (1 of 3 - 3-dose series) [facility] HEARTS EVENT MONITOR [facility] HEARTS EVENT MONITOR Cardiology Routine Palpitations Chest pain, unspecified type SOB (shortness of breath) Ordered: 10/29/2022 [facility] Work Phone: Comment on above: Ordered: 10/29/2022 Patient Education ED Knee Sprain ED [facility] Work Phone: End: 11-28-2023 SPIROMETRY - BASELINE AND POST DILATOR SPIROMETRY - BASELINE AND POST DILATOR PFT Routine Ex-smoker SOB (shortness of breath) 1 Occurrences starting 10/29/2022 until 11/28/2023 [facility] Work Phone: Comment on above: 1 Occurrences starti ng 10/29/2022 until 11/28/2023 End: 10-30-2023 STRESS ECHO TREADMILL STRESS ECHO TREADMILL Cardiology Routine Ex-smoker Chews tobacco Palpitations Chest pain, unspecified type SOB (shortness of breath) Bicuspid aortic valve 1 Occurrences starting 10/29/2022 until 10/30/2023 [facility] Work Phone: Comment on above: 1 Occurrences starti ng 10/29/2022 until 10/30/2023 [facility] Immunizations Immunization Date Immunization Notes Care Provider Kelin aburto 06-29-2014 influenza, live, intranasal, quadrivalent Jennifer King MATERIALS ENGINEERING TECHNICIAN.BOARD WRITER Work Phone: [facility] Work Phone: 06-29-2014 influenza virus vaccine, unspecified formulation Carolyn Bueno MATERIALS ENGINEERING TECHNICIAN.BOARD WRITER Work Phone: [facility] 01-17-2011 tetanus toxoid, redu viral diphtheria toxoid, and acellular pertussis vaccine, adsorbed Jennifer Fernando MATERIALS ENGINEERING TECHNICIAN.[facility] Work Phone: [facility] Work Phone: Payers Date Payer Category Payer Private Health Insurance [id number] 2025 Self-pay [id number] 2021 Private Health Insurance [id number] 2021 Private Health Insurance [id number] Unknown [id number] Unknown [id number] Unknown [id number] Social History Date Type Detail Facility Start: 11-23-2021 Tobacco smoking stat [facility] Unknown if ever smoked [facility] Work Phone: Start: 1980 Sex Assigned At Male [facility] Start: 05-01-2022 Tobacco smoking stat [facility] Light tobacco smoker [facility] Work Phone: Start: 05-01-2022 End: 10-29-2022 Tobacco use and exposure Smokeless tobacco non-user [facility] Work Phone: Start: 05-01-2022 End: 08-20-2024 Alcohol intake Current drinker of alcohol (finding) [facility] Start: 05-01-2022 End: 05-27-[address] [facility] Start: 05-01-2022 Tobacco Comment approx [address] [facility] Start: 1980 Sex Assigned At Not on file [facility] Start: 10-29-2022 End: 04-28-2025 Tobacco smoking status NHIS Ex-smoker [facility] Work Phone: History of tobacco use Current smoker [facility] Work Phone: History of tobacco use Cigarette Smoker [facility] Work Phone: Start: 06-05-2023 End: 05-27-2024 [facility] [employer] [facility] Has the [employer], [employer], or water [employer] threatened to shut off services in your home in past 12Mo No [facility] Do you belong to any clubs or organizations such as presybeterian groups, unions, fraternal or athletic groups, or school groups? Yes [facility] Are you now , , , , never or living with a partner? [facility] How often to you hav e a drink containing alcohol? 2-3 time sa week [facility] How many standard dr inks containing alcohol do you have on a typical day? [address] [facility] How often do you hav e 6 or more drinks on 1 occasion? Weekly [facility] How hard is it for y ou to pay for the very basics like food, housing, medical care, and heating Not hard at all [facility] Do you feel stress - tense, restless, nervous, or anxious, or unable to sleep at night because your mind is troubled all the time - these days [OSQ] Rather much [facility] (I/We) worried medical [facility] hospital (my/our) food would run out before (I/we) got money to buy more. Never true [facility] Start: 05-03-2025 Tobacco smoking stat us NHIS Smokes tobacco daily (finding) [facility] Clinical Notes 05-01-2022 to 05-03-2025 Note Date & Type Note Facility 05-03-2025 Discharge summary [facility] 04-28-2025 Evaluation note Diagnosis Onset Date Resolution Right knee pain noneactive April 28, 2025 7:44am [facility] Work Phone: 1(726) 996-988101-02-2025 NoteHNO ID: [id number] Author: QUITA MARTIN APRN.BOARD WRITER Service: ? Author Type: Nurse Practitioner Type: Progress Notes Filed: 08/20/2024 14:25 Note Text: Chief Complaint Patient presents with: Ingrown Nail: Right big toe, red and painful x 2/3 weeks, removal by Dr. Ferro 06/12, Gout HPI Eric Araiza is a 44 year old male who presents here today for Above Complaints.. Right great toe-red and painful. About 2-3 weeks ago started to get red and painful, started getting red and painful again. Went skiing last week and has had a little bit of bloody drainage. Denies fever. Soaking in Epsom salt, peroxide when he gets home from work. Keeping it clean and dry-changes his socks twice daily. Lets it air out when gets home from work. Past medical history, appointments, medications, allergies reviewed. Previous Medical History PAST MEDICAL HISTORY Diagnosis Date Bicuspid aortic valve Fussion Chews tobacco 10/29/2022 Started age 17. Ex-smoker 10/29/2022 Started at age 17 and was smoking 1 pack every two weeks or more. Previous Surgical History History reviewed. No pertinent surgical history. Family History FAMILY HISTORY Problem Relation Age of Onset None Unknown pt adopted Patient Allergies ALLERGIES No Known Allergies Current Medications Current Outpatient Medications on File Prior to Visit Medication Sig predniSONE (DELTASONE) 20 mg tablet 3 tabs a day by mouth for the next 5 days allopurinol (ZYLOPRIM) 300 mg tablet Take 1 tablet by mouth once daily. For gout. Start after acute pain is resolved for 5-7 days. sertraline (ZOLOFT) 50 mg tablet 1/2 a tablet by mouth once a day for 14 days then go to one tablet daily omeprazole (PRILOSEC) 40 mg capsule Take 1 capsule by mouth once daily. No current facility-administered medications on file prior to visit. Social History Social History Tobacco Use Smoking status: Former Types: Cigarettes Smokeless tobacco: Never Tobacco comments: approx 2 cigs yearly Substance Use Topics Alcohol use: Yes Alcohol/week: 14.0 standard drinks of alcohol Types: 14 Cans of Beer (12oz) per week Drug use: No Review of Symptoms REVIEW OF SYSTEMS See HPI, otherwise negative EXAM: BP 110/78 (BP Site: Left Arm, BP Position: Sitting, BP Cuff Size: Large Adult) Pulse 85 Wt 116.4 kg (256 lb 9.9 oz) SpO2 100% BMI 35.79 kg/m? General Appearance: Well appearing, alert, in no acute distress, well-hydrated, well nourished.. Skin: skin surrounding right great toenail, specifically medially and proximally, swollen, cool, purple in color, small amount dried blood, mildly painful to palpation. Extremities: skin surrounding right great toenail, specifically medially and proximally, swollen, cool, purple in color, small amount dried blood, mildly painful to palpation.. Psychiatric: pleasant, cooperative. Health Maintenance List Hepatitis C Screening Never done HIV Screening Never done Hepatitis B Vaccine(1 of 3 - 19+ 3-dose series) Never done Lipid Screening Never done DTaP,Tdap,Td Vaccine(2 - Td or Tdap) due on 01/17/2021 Influenza Vaccine(1) due on 04/19/2024 Covid-19 Vaccine(3 - 2023- season) due on 04/19/2024 HPV Vaccine Aged Out Data reviewed Previous records, office notes ASSESSMENT/PLAN: 1. Ingrown nail of great toe of right foot - ICD9: 703.0, ICD10: L60.0 (primary diagnosis) Continue soaking with Epsom salts and Dreft. Keep clean and dry. Aware of red flag s/s. F/u in the office in 5 days. - CEFADROXIL 500 MG CAPSULE 2. Gout, unspecified cause, unspecified chronicity, unspecified site - ICD9: 274.9, ICD10: M10.9 - ALLOPURINOL 300 MG TABLET 3. Cellulitis of skin - ICD9: 682.9, ICD10: L03.90 Continue soaking with Epsom salts and Dreft. Keep clean and dry. Aware of red flag s/s. F/u in the office in 5 days. - CEFADROXIL 500 MG CAPSULE Quita Martin APRN.[facility] History of Present illness Narrative* Quita Martin APRN.BOARD WRITER - 08/20/2024 1:48 PM EST Chief Complaint Patient presents with: Ingrown Nail: Right big toe, red and painful x 2/3 weeks, removal by Dr. Ferro 06/12, Gout HPI Eric Araiza is a 44 year old male who presents here today for Above Complaints.. Right great toe-red and painful. About 2-3 weeks ago started to get red and painful, started getting red and painful again. Went skiing last week and has had a little bit of bloody drainage. Denies fever. Soaking in Epsom salt, peroxide when he gets home from work. Keeping it clean and dry-changes his socks twice daily. Lets it air out when gets home from work. Past medical history, appointments, medications, allergies reviewed. Previous Medical History PAST MEDICAL HISTORY Diagnosis Date Bicuspid aortic valve Fussion Chews tobacco 10/29/2022 Started age 17. Ex-smoker 10/29/2022 Started at age 17 and was smoking 1 pack every two weeks or more. Previous Surgical History History reviewed. No pertinent surgical history. Family History FAMILY HISTORY Problem Relation Age of Onset None Unknown pt adopted Patient Allergies ALLERGIES No Known Allergies Current Medications Current Outpatient Medications on File Prior to Visit Medication Sig predniSONE (DELTASONE) 20 mg tablet 3 tabs a day by mouth for the next 5 days allopurinol (ZYLOPRIM) 300 mg tablet Take 1 tablet by mouth once daily. For gout. Start after acutepain is resolved for 5-7 days. sertraline (ZOLOFT) 50 mg tablet 1/2 a tablet by mouth once a day for 14 days then go to one tabletdaily omeprazole (PRILOSEC) 40 mg capsule Take 1 capsule by mouth once daily. No current facility-administered medications on file prior to visit. Social History Social History Tobacco Use Smoking status: Former Types: Cigarettes Smokeless tobacco: Never Tobacco comments: approx 2 cigs yearly Substance Use Topics Alcohol use: Yes Alcohol/week: 14.0 standard drinks of alcohol Types: 14 Cans of Beer (12oz) per week Drug use: No Review of Symptoms REVIEW OF SYSTEMS See HPI, otherwise negative EXAM: BP 110/78 (BP Site: Left Arm, BP Position: Sitting, BP Cuff Size: Large Adult) Pulse 85 Wt 116.4 kg (256 lb 9.9 oz) SpO2 100% BMI 35.79 kg/m General Appearance: Well appearing, alert, in no acute distress, well-hydrated, well nourished.. Skin: skin surrounding right great toenail, specifically medially and proximally, swollen, cool, purple in color, small amount dried blood, mildly painful to palpation. Extremities: skin surrounding right great toenail, specifically medially and proximally, swollen, cool, purple in color, small amount dried blood, mildly painful to palpation.. Psychiatric: pleasant, cooperative. Health Maintenance List Hepatitis C Screening Never done HIV Screening Never done Hepatitis B Vaccine(1 of 3 - 19+ 3-dose series) Never done Lipid Screening Never done DTaP,Tdap,Td Vaccine(2 - Td or Tdap) due on 01/17/2021 Influenza Vaccine(1) due on 04/19/2024 Covid-19 Vaccine(3 - 2023- season) due on 04/19/2024 HPV Vaccine Aged Out Data reviewed Previous records, office notes ASSESSMENT/PLAN: 1. Ingrown nail of great toe of right foot - ICD9: 703.0, ICD10: L60.0 (primary diagnosis) Continue soaking with Epsom salts and Dreft. Keep clean and dry. Aware of red flag s/s. F/u in the office in 5 days. - CEFADROXIL 500 MG CAPSULE 2. Gout, unspecified cause, unspecified chronicity, unspecified site - ICD9: 274.9, ICD10: M10.9 - ALLOPURINOL 300 MG TABLET 3. Cellulitis of skin - ICD9: 682.9, ICD10: L03.90 Continue soaking with Epsom salts and Dreft. Keep clean and dry. Aware of red flag s/s. F/u in the office in 5 days. - CEFADROXIL 500 MG CAPSULE Quita Martin APRN.BOARD WRITER [facility] History of Present illness Narrative* Chance Ferro MD - 07/01/2024 5:40 PM EST Chief Complaint Patient presents with: Follow Up HPI Eric Araiza is a 44 year old male who presents here today for follow up on foot. Patient has been doing ok. No further pain. Has had some slight drainage. Office visit - 06/12/2024 - right eric At a recent apt patient was diagnosed with paronychia and ingrown right great toe nail lateral side. Past medical history, appointments, medications, allergies reviewed. Previous Medical History PAST MEDICAL HISTORY Diagnosis Date Bicuspid aortic valve Fussion Chews tobacco 10/29/2022 Started age 17. Ex-smoker 10/29/2022 Started at age 17 and was smoking 1 pack every two weeks or more. Previous Surgical History No past surgical history on file. Family History FAMILY HISTORY Problem Relation Age of Onset None Unknown pt adopted Patient Allergies ALLERGIES No Known Allergies Current Medications Current Outpatient Medications on File Prior to Visit Medication Sig predniSONE (DELTASONE) 20 mg tablet 3 tabs a day by mouth for the next 5 days colchicine 0.6 mg tablet Take one tab by mouth 3 times a day till pain stops or script finished. allopurinol (ZYLOPRIM) 300 mg tablet Take 1 tablet by mouth once daily. For gout. Start after acutepain is resolved for 5-7 days. sertraline (ZOLOFT) 50 mg tablet 1/2 a tablet by mouth once a day for 14 days then go to one tabletdaily omeprazole (PRILOSEC) 40 mg capsule Take 1 capsule by mouth once daily. No current facility-administered medications on file prior to visit. Social History Social History Tobacco Use Smoking status: Former Types: Cigarettes Smokeless tobacco: Never Tobacco comments: approx 2 cigs yearly Substance Use Topics Alcohol use: Yes Alcohol/week: 14.0 standard drinks of alcohol Types: 14 Cans of Beer (12oz) per week Drug use: No Review of Symptoms REVIEW OF SYSTEMS See HPI EXAM: BP 122/96 Pulse 82 Resp 16 Wt 116.6 kg (257 lb) BMI 35.84 kg/m BP 118/82 Pulse 82 Resp 16 Wt 116.6 kg (257 lb) BMI 35.84 kg/m General Appearance: Well appearing, alert, in no acute distress, well-hydrated, well nourished.. Skin: Skin color, texture, turgor normal, no suspicious rashes or lesions. Some slight serosanguinous drainage. No puss. No swelling or pain. Health Maintenance List Hepatitis C Screening Never done HIV Screening Never done Hepatitis B Vaccine(1 of 3 - 19+ 3-dose series) Never done Lipid Screening Never done DTaP,Tdap,Td Vaccine(2 - Td or Tdap) due on 01/17/2021 Influenza Vaccine(1) due on 04/19/2024 Covid-19 Vaccine(2023- season) due on 04/19/2024 HPV Vaccine Aged Out Data reviewed A/P ASSESSMENT/PLAN: 1. Ingrown nail of great toe of right foot - ICD9: 703.0, ICD10: L60.0 - post op visit. Healing good. Patient to continue soaking for the next 1-2 weeks. F/u if any issues otherwise next routine. Chance Ferro MD [facility] NoteHNO ID: [id number] Author: CHANCE FERRO MD Service: ? Author Type: Physician Type: Progress Notes Filed: 07/01/2024 17:38 Note Text: Chief Complaint Patient presents with: Follow Up HPI Eric Araiza is a 44 year old male who presents here today for follow up on foot. Patient has been doing ok. No further pain. Has had some slight drainage. Office visit - 06/12/2024 - right eric At a recent apt patient was diagnosed with paronychia and ingrown right great toe nail lateral side. Past medical history, appointments, medications, allergies reviewed. Previous Medical History PAST MEDICAL HISTORY Diagnosis Date Bicuspid aortic valve Fussion Chews tobacco 10/29/2022 Started age 17. Ex-smoker 10/29/2022 Started at age 17 and was smoking 1 pack every two weeks or more. Previous Surgical History No past surgical history on file. Family History FAMILY HISTORY Problem Relation Age of Onset None Unknown pt adopted Patient Allergies ALLERGIES No Known Allergies Current Medications Current Outpatient Medications on File Prior to Visit Medication Sig predniSONE (DELTASONE) 20 mg tablet 3 tabs a day by mouth for the next 5 days colchicine 0.6 mg tablet Take one tab by mouth 3 times a day till pain stops or script finished. allopurinol (ZYLOPRIM) 300 mg tablet Take 1 tablet by mouth once daily. For gout. Start after acute pain is resolved for 5-7 days. sertraline (ZOLOFT) 50 mg tablet 1/2 a tablet by mouth once a day for 14 days then go to one tablet daily omeprazole (PRILOSEC) 40 mg capsule Take 1 capsule by mouth once daily. No current facility-administered medications on file prior to visit. Social History Social History Tobacco Use Smoking status: Former Types: Cigarettes Smokeless tobacco: Never Tobacco comments: approx 2 cigs yearly Substance Use Topics Alcohol use: Yes Alcohol/week: 14.0 standard drinks of alcohol Types: 14 Cans of Beer (12oz) per week Drug use: No Review of Symptoms REVIEW OF SYSTEMS See HPI EXAM: BP 122/96 Pulse 82 Resp 16 Wt 116.6 kg (257 lb) BMI 35.84 kg/m? BP 118/82 Pulse 82 Resp 16 Wt 116.6 kg (257 lb) BMI 35.84 kg/m? General Appearance: Well appearing, alert, in no acute distress, well-hydrated, well nourished.. Skin: Skin color, texture, turgor normal, no suspicious rashes or lesions. Some slight serosanguinous drainage. No puss. No swelling or pain. Health Maintenance List Hepatitis C Screening Never done HIV Screening Never done Hepatitis B Vaccine(1 of 3 - 19+ 3-dose series) Never done Lipid Screening Never done DTaP,Tdap,Td Vaccine(2 - Td or Tdap) due on 01/17/2021 Influenza Vaccine(1) due on 04/19/2024 Covid-19 Vaccine( - season) due on 04/19/2024 HPV Vaccine Aged Out Data reviewed A/P ASSESSMENT/PLAN: 1. Ingrown nail of great toe of right foot - ICD9: 703.0, ICD10: L60.0 - post op visit. Healing good. Patient to continue soaking for the next 1-2 weeks. F/u if any issues otherwise next routine. Chance Ferro, [facility] [place]10-29-2024 Telephone encounter Note* Telephone Encounter - Ruby Cole MA - 06/16/2024 9:16 AM EDT Pt notified. The toe feels good, still has a little blood in the nail and redness around the toe. No swelling. No drainage other than some blood seeping on the bandage around the right lower nail bed. He did use some Hydrogen peroxide with little bubbling. Ruby Cole MA [facility]10-29-2024 Miscellaneous Notes* Telephone Encounter - Ruby Cole MA - 06/16/2024 9:16 AM EDT Pt notified. The toe feels good, still has a little blood in the nail and redness around the toe. No swelling. No drainage other than some blood seeping on the bandage around the right lower nail bed. He did use some Hydrogen peroxide with little bubbling. Ruby Cole MA * Telephone Encounter - Nata Trejo MA - 06/15/2024 9:30 AM EDT Left message for patient to contact office. Nata Trejo MA * Telephone Encounter - Chance Ferro MD - 06/14/2024 9:04 PM EDT Let patient know His uric acid level is below 6 at 5.6. advise him to stay on the Allopurinol. See how his toe did over the weekend. [facility] Telephone encounter Note * Telephone Encounter - Nata Trejo MA - 06/15/2024 9:30 AM EDT Left message for patient to contact office. Nata Trejo MA [facility]10-27-2024 Telephone encounter Note* Telephone Encounter - Chance Ferro MD - 06/14/2024 9:04 PM EDT Let patient know His uric acid level is below 6 at 5.6. advise him to stay on the Allopurinol. See how his toe did over the weekend. [facility]10-25-2024 NoteHNO ID: [id number] Author: CHANCE FERRO MD Service: ? Author Type: Physician Type: Procedures Filed: 06/15/2024 20:47 Note Text: UNIVERSAL PROTOCOL / SAFETY CHECKLIST Procedure to be Performed: wedge resection of toe nail with matrixectomy. Sign In: A Moment of CARE was completed. Personnel directly involved with the procedure wore the appropriate PPE (Personal Protective Equipment). Patient/Surrogate Stated/Verified: PATIENT VERIFIED(optional for EMERGENT procedures): Patient name, Date of , Relevant allergies, and The intended procedure Time Out Communication: Intended patient and procedure match the source documents. Consent documented and matches the intended procedure. Correct side/site marked and visible. Medications required for procedure verified. Sign Out: SIGN OUT (optional for EMERGENT procedures): No specimen collected. Post-procedure follow-up management communicated and Plan of Care Visit completed when applicable. The right great toe was cleansed with betadine and alcohol and then anesthetized with 2% Lido without Epi. After the right great toe was appropriately anesthetized a nail separator was used to separate the lateral edge of the nail down to the matrix. A nailing machine operator automatic was then used to cut the nail down to the matrix. A nail splitter was then used to split the rest of the nail down through the matrix. The lateral edge of the nail that was ingrown was then removed using a hemostat. A matricectomy was then performed using a bone rasp followed by chemical treatment with phenol. Patient tolerated well with minimal blood loss. There toe was covered with antibiotic ointment and a sterile dressing. Chance Ferro [facility] [place]10-25-2024 Procedure note* Chance Ferro MD - 06/12/2024 4:18 PM EDTProcedure(s): NAIL REMOVAL PROCEDURE (W NOTE) Pre-Procedure Diagnose(s): Ingrown toenail Post-Procedure Diagnose(s): Ingrown toenail UNIVERSAL PROTOCOL / SAFETY CHECKLIST Procedure to be Performed: wedge resection of toe nail with matrixectomy. Sign In: A Moment of CARE was completed. Personnel directly involved with the procedure wore the appropriate PPE (Personal Protective Equipment). Patient/Surrogate Stated/Verified: PATIENT VERIFIED(optional for EMERGENT procedures): Patient name, Date of , Relevant allergies, and The intended procedure Time Out Communication: Intended patient and procedure match the source documents. Consent documented and matches the intended procedure. Correct side/site marked and visible. Medications required for procedure verified. Sign Out: SIGN OUT (optional for EMERGENT procedures): No specimen collected. Post-procedure follow-up management communicated and Plan of Care Visit completed when applicable. The right great toe was cleansed with betadine and alcohol and then anesthetized with 2% Lido without Epi. After the right great toe was appropriately anesthetized a nail separator was used to separate the lateral edge of the nail down to the matrix. A nailing machine operator automatic was then used to cut the nail downto the matrix. A nail splitter was then used to split the rest of the nail down through the matrix.The lateral edge of the nail that was ingrown was then removed using a hemostat. A matricectomy wasthen performed using a bone rasp followed by chemical treatment with phenol. Patient tolerated wellwith minimal blood loss. There toe was covered with antibiotic ointment and a sterile dressing. Chance Ferro MD [facility]10-25-2024 Procedure note* Chance Ferro MD - 06/12/2024 4:18 PM EDTProcedure(s): NAIL REMOVAL PROCEDURE (W NOTE) Pre-Procedure Diagnose(s): Ingrown toenail Post-Procedure Diagnose(s): Ingrown toenail UNIVERSAL PROTOCOL / SAFETY CHECKLIST Procedure to be Performed: wedge resection of toe nail with matrixectomy. Sign In: A Moment of CARE was completed. Personnel directly involved with the procedure wore the appropriate PPE (Personal Protective Equipment). Patient/Surrogate Stated/Verified: PATIENT VERIFIED(optional for EMERGENT procedures): Patient name, Date of , Relevant allergies, and The intended procedure Time Out Communication: Intended patient and procedure match the source documents. Consent documented and matches the intended procedure. Correct side/site marked and visible. Medications required for procedure verified. Sign Out: SIGN OUT (optional for EMERGENT procedures): No specimen collected. Post-procedure follow-up management communicated and Plan of Care Visit completed when applicable. The right great toe was cleansed with betadine and alcohol and then anesthetized with 2% Lido without Epi. After the right great toe was appropriately anesthetized a nail separator was used to separate the lateral edge of the nail down to the matrix. A nailing machine operator automatic was then used to cut the nail downto the matrix. A nail splitter was then used to split the rest of the nail down through the matrix.The lateral edge of the nail that was ingrown was then removed using a hemostat. A matricectomy wasthen performed using a bone rasp followed by chemical treatment with phenol. Patient tolerated wellwith minimal blood loss. There toe was covered with antibiotic ointment and a sterile dressing. Chance Ferro MD [facility]24 NoteHNO ID: [id number] Author: CHANCE FERRO MD Service: ? Author Type: Physician Type: Progress Notes Filed: 06/15/2024 20:47 Note Text: Chief Complaint Patient presents with: Ingrown Toenail: Right toe HPI Eric Araiza is a 44 year old male who presents here today for right toenail removal. At a recent apt patient was diagnosed with paronychia and ingrown right great toe nail lateral side. Past medical history, appointments, medications, allergies reviewed. Previous Medical History PAST MEDICAL HISTORY Diagnosis Date Bicuspid aortic valve Fussion Chews tobacco 10/29/2022 Started age 17. Ex-smoker 10/29/2022 Started at age 17 and was smoking 1 pack every two weeks or more. Previous Surgical History No past surgical history on file. Family History FAMILY HISTORY Problem Relation Age of Onset None Unknown pt adopted Patient Allergies ALLERGIES No Known Allergies Current Medications Current Outpatient Medications on File Prior to Visit Medication Sig predniSONE (DELTASONE) 20 mg tablet 3 tabs a day by mouth for the next 5 days colchicine 0.6 mg tablet Take one tab by mouth 3 times a day till pain stops or script finished. allopurinol (ZYLOPRIM) 300 mg tablet Take 1 tablet by mouth once daily. For gout. Start after acute pain is resolved for 5-7 days. sertraline (ZOLOFT) 50 mg tablet 1/2 a tablet by mouth once a day for 14 days then go to one tablet daily omeprazole (PRILOSEC) 40 mg capsule Take 1 capsule by mouth once daily. No current facility-administered medications on file prior to visit. Social History Social History Tobacco Use Smoking status: Former Types: Cigarettes Smokeless tobacco: Never Tobacco comments: approx 2 cigs yearly Substance Use Topics Alcohol use: Yes Alcohol/week: 14.0 standard drinks of alcohol Types: 14 Cans of Beer (12oz) per week Drug use: No Review of Symptoms REVIEW OF SYSTEMS Still with discomfort from ingrown toe nail. EXAM: BP 126/88 Pulse 76 Resp 16 Wt 116.6 kg (257 lb) BMI 35.84 kg/m? General Appearance: Well appearing, alert, in no acute distress, well-hydrated, well nourished.. Skin: lateral right great toe nail ingrown. Still with local inflammation but infection is resolved. . Health Maintenance List Hepatitis C Screening Never done HIV Screening Never done Hepatitis B Vaccine(1 of 3 - 19+ 3-dose series) Never done Lipid Screening Never done DTaP,Tdap,Td Vaccine(2 - Td or Tdap) due on 01/17/2021 Influenza Vaccine(1) due on 04/19/2024 Covid-19 Vaccine( - 2023- season) due on 04/19/2024 HPV Vaccine Aged Out Data reviewed A/P ASSESSMENT/PLAN: 1. Ingrown toenail - ICD9: 703.0, ICD10: L60.0 - discussed wedge resection and matrixectomy of the lateral side of the right great toe nail. - patient in agreement. Consent signed. - see procedure note. - care sheet provided. F/u 3-4 weeks for recheck Chance Ferro, [facility] [place]10-25-2024 History of Present illness Narrative* Chance Ferro MD - 06/12/2024 3:40 PM EDT Chief Complaint Patient presents with: Ingrown Toenail: Right toe HPI Eric Araiza is a 44 year old male who presents here today for right toenail removal. At a recent apt patient was diagnosed with paronychia and ingrown right great toe nail lateral side. Past medical history, appointments, medications, allergies reviewed. Previous Medical History PAST MEDICAL HISTORY Diagnosis Date Bicuspid aortic valve Fussion Chews tobacco 10/29/2022 Started age 17. Ex-smoker 10/29/2022 Started at age 17 and was smoking 1 pack every two weeks or more. Previous Surgical History No past surgical history on file. Family History FAMILY HISTORY Problem Relation Age of Onset None Unknown pt adopted Patient Allergies ALLERGIES No Known Allergies Current Medications Current Outpatient Medications on File Prior to Visit Medication Sig predniSONE (DELTASONE) 20 mg tablet 3 tabs a day by mouth for the next 5 days colchicine 0.6 mg tablet Take one tab by mouth 3 times a day till pain stops or script finished. allopurinol (ZYLOPRIM) 300 mg tablet Take 1 tablet by mouth once daily. For gout. Start after acutepain is resolved for 5-7 days. sertraline (ZOLOFT) 50 mg tablet 1/2 a tablet by mouth once a day for 14 days then go to one tabletdaily omeprazole (PRILOSEC) 40 mg capsule Take 1 capsule by mouth once daily. No current facility-administered medications on file prior to visit. Social History Social History Tobacco Use Smoking status: Former Types: Cigarettes Smokeless tobacco: Never Tobacco comments: approx 2 cigs yearly Substance Use Topics Alcohol use: Yes Alcohol/week: 14.0 standard drinks of alcohol Types: 14 Cans of Beer (12oz) per week Drug use: No Review of Symptoms REVIEW OF SYSTEMS Still with discomfort from ingrown toe nail. EXAM: BP 126/88 Pulse 76 Resp 16 Wt 116.6 kg (257 lb) BMI 35.84 kg/m General Appearance: Well appearing, alert, in no acute distress, well-hydrated, well nourished.. Skin: lateral right great toe nail ingrown. Still with local inflammation but infection is resolved. . Health Maintenance List Hepatitis C Screening Never done HIV Screening Never done Hepatitis B Vaccine(1 of 3 - 19+ 3-dose series) Never done Lipid Screening Never done DTaP,Tdap,Td Vaccine(2 - Td or Tdap) due on 01/17/2021 Influenza Vaccine(1) due on 04/19/2024 Covid-19 Vaccine(2023-25 season) due on 04/19/2024 HPV Vaccine Aged Out Data reviewed A/P ASSESSMENT/PLAN: 1. Ingrown toenail - ICD9: 703.0, ICD10: L60.0 - discussed wedge resection and matrixectomy of the lateral side of the right great toe nail. - patient in agreement. Consent signed. - see procedure note. - care sheet provided. F/u 3-4 weeks for recheck Chance Ferro MD [facility] Telephone encounter Note * Telephone Encounter - Marleni Campa LPN - 06/10/2024 9:37 AM EDT Spoke with pt and information listed below given. Pt verbalizes understanding. Pt will try get the lab done today. Marleni Campa LPN [facility]10-23-2024 Miscellaneous Notes* Telephone Encounter - Marleni Campa LPN - 06/10/2024 9:37 AM EDT Spoke with pt and information listed below given. Pt verbalizes understanding. Pt will try get the lab done today. Marleni Campa LPN * Telephone Encounter - Chance Ferro MD - 06/10/2024 8:37 AM EDT Let patient know I sent the prednisone in but I also placed an order for a uric acid level. I want him to get the lab first and then he can start the steroid. The following approved medication requests have been transmitted electronically. Requested Prescriptions Signed Prescriptions Disp Refills predniSONE (DELTASONE) 20 mg tablet 15 tablet 0 Si tabs a day by mouth for the next 5 days Authorizing Provider: CHANCE FERRO MD * Telephone Encounter - Marleni Campa LPN - 06/10/2024 8:09 AM EDT Spoke with pt and yes he started the allopurinol. Marleni Campa LPN * Telephone Encounter - Nata Trejo MA - 06/09/2024 3:01 PM EDT Left message for patient to contact office. Nata Trejo MA * Telephone Encounter - Chance Ferro MD - 06/09/2024 12:38 PM EDT Find out if he started the allopurinol? * Telephone Encounter - Nata Trejo MA - 06/09/2024 7:51 AM EDT Prescription Refill Information The patient has been identified by name and date of : Yes Caregiver verified no other encounters exist for this prescription request: Yes Caregiver confirmed with patient/requestor that no other refills are due, in the near future, with this provider at this time: Yes The last office visit in the department: 05/2024 Does the patient have a future office visit with this provider/department: No Patient was seen 05/27/2024 for his foot. Patient is scheduled this Saturday for toenail removal. Requested Prescriptions Pending Prescriptions Disp Refills predniSONE (DELTASONE) 20 mg tablet 15 tablet 0 Si tabs a day by mouth for the next 5 days Nata Trejo MA June 09, 2024 7:51 AM [facility] Telephone encounter Note * Telephone Encounter - Chance Ferro MD - 06/10/2024 8:37 AM EDT Let patient know I sent the prednisone in but I also placed an order for a uric acid level. I want him to get the lab first and then he can start the steroid. The following approved medication requests have been transmitted electronically. Requested Prescriptions Signed Prescriptions Disp Refills predniSONE (DELTASONE) 20 mg tablet 15 tablet 0 Si tabs a day by mouth for the next 5 days Authorizing Provider: CHANCE FERRO MD [facility]10-23-2024 Telephone encounter Note* Telephone Encounter - Marleni Campa LPN - 06/10/2024 8:09 AM EDT Spoke with pt and yes he started the allopurinol. Marleni Campa LPN [facility]10-22-2024 Telephone encounter Note* Telephone Encounter - Nata Trejo MA - 06/09/2024 3:01 PM EDT Left message for patient to contact office. Nata Trejo MA [facility]10-22-2024 Telephone encounter Note* Telephone Encounter - Chance Ferro MD - 06/09/2024 12:38 PM EDT Find out if he started the allopurinol? [facility]10-22-2024 Telephone encounter Note* Telephone Encounter - Nata Trejo MA - 06/09/2024 7:51 AM EDT Prescription Refill Information The patient has been identified by name and date of : Yes Caregiver verified no other encounters exist for this prescription request: Yes Caregiver confirmed with patient/requestor that no other refills are due, in the near future, with this provider at this time: Yes The last office visit in the department: 05/2024 Does the patient have a future office visit with this provider/department: No Patient was seen 05/27/2024 for his foot. Patient is scheduled this Saturday for toenail removal. Requested Prescriptions Pending Prescriptions Disp Refills predniSONE (DELTASONE) 20 mg tablet 15 tablet 0 Si tabs a day by mouth for the next 5 days Nata Trejo MA June 09, 2024 7:[address] [facility]10-09-2024 Instructions* Patient Instructions* Chance Ferro MD - 05/27/2024 5:01 PM EDT Please get uric acid level done on or after 07/01/[address] [facility] History of Present illness Narrative* Chance Ferro MD - 05/27/2024 4:40 PM EDT Chief Complaint Patient presents with: Pain HPI Eric Araiza is a 44 year old male who presents here today for Acute onset of right foot pain/right elbow. Right foot x 1 month; right elbow started this Saturday. Location? Right foot/right elbow Pain scale? 7-8 Describe pain? Sharp and stabbing. Any injury? No injury Stooped the allopurinol since it seems like it was not helping. No longer drinks any alcohol and does not eat red meat often. The pain on the lateral side of th right foot started after the ball of the foot was hurting. Patient has been irritable for about a year, having difficulty sleeping for the past 6 months. Thinks he is depressed. Mom about a year ago. C/o redness, swelling and pus on the medial side of the right great toe. Has been doing Epson salt soaks. Past medical history, appointments, medications, allergies reviewed. Previous Medical History PAST MEDICAL HISTORY Diagnosis Date Bicuspid aortic valve Fussion Chews tobacco 10/29/2022 Started age 17. Ex-smoker 10/29/2022 Started at age 17 and was smoking 1 pack every two weeks or more. Previous Surgical History No past surgical history on file. Family History FAMILY HISTORY Problem Relation Age of Onset None Unknown pt adopted Patient Allergies ALLERGIES No Known Allergies Current Medications Current Outpatient Medications on File Prior to Visit Medication Sig methylPREDNISolone (MEDROL, CAMI,) 4 mg Dose-Pack As instructed per package (Patient not taking: Reported on 03/15/2024) allopurinol (ZYLOPRIM) 100 mg tablet Take 1 tablet by mouth two times a day. For gout. omeprazole (PRILOSEC) 40 mg capsule Take 1 capsule by mouth once daily. No current facility-administered medications on file prior to visit. Social History Social History Tobacco Use Smoking status: Former Types: Cigarettes Smokeless tobacco: Never Tobacco comments: approx 2 cigs yearly Substance Use Topics Alcohol use: Yes Alcohol/week: 14.0 standard drinks of alcohol Types: 14 Cans of Beer (12oz) per week Drug use: No Review of Symptoms REVIEW OF SYSTEMS See HPI EXAM: BP 118/96 (BP Site: Left Arm, BP Position: Sitting, BP Cuff Size: Large Adult) Pulse 84 Temp 37.6 C (99.6 F) (Tympanic) Resp 16 Wt 120.7 kg (266 lb) BMI 37.10 kg/m General Appearance: Well appearing, alert, in no acute distress, well-hydrated, well nourished. andObese. Skin: Has mild erythema and swelling of the right olecranon region, right lateral foot and 1st MP right foot. The skin on the lateral side of the right big toe is erythematous swollen and has pus. . Musculoskeletal: the right elbow, right 1st MP joint of foot and lateral side of right foot are alltender to palpation and warm to touch. . Health Maintenance List Depression Screening Never done Anxiety Screening Never done Hepatitis C Screening Never done HIV Screening Never done Hepatitis B Vaccine(1 of 3 - 19+ 3-dose series) Never done Lipid Screening Never done DTaP,Tdap,Td Vaccine(2 - Td or Tdap) due on 01/17/2021 Influenza Vaccine(1) due on 04/19/2024 Covid-19 Vaccine(3 - 2023-25 season) due on 04/19/2024 HPV Vaccine Aged Out Data reviewed A/P ASSESSMENT/PLAN: 1. Acute gout of multiple sites, unspecified cause - ICD9: 274.01, ICD10: M10.9 (primary diagnosis) - will treat with colchicine and steroid. - 5-7 days after pain stops patient is to start the allopurinol 300 mg a day. Check uric acid in a month. 2. Paronychia of great toe of right foot - ICD9: 681.11, ICD10: L03.031 - Begin treatment with Cefadroxil (Duricef) as below - cont Epson salt soaks 3. Current severe episode of major depressive disorder without psychotic features without prior episode (HCC) - ICD9: 296.23, ICD10: F32.2 - will start sertraline. Discussed side affects 4. HEIID (generalized anxiety disorder) - ICD9: 300.02, ICD10: F41.1 - as per #3 5. Ingrown nail of great toe of right foot - ICD9: 703.0, ICD10: L60.0 - f/u in 3-4 weeks for removal of nail. Requested Prescriptions Signed Prescriptions Disp Refills colchicine 0.6 mg tablet 10 tablet 1 Sig: Take one tab by mouth 3 times a day till pain stops or script finished. predniSONE (DELTASONE) 20 mg tablet 15 tablet 0 Si tabs a day by mouth for the next 5 days cefADROxil (DURICEF) 500 mg capsule 20 capsule 0 Sig: Take 1 capsule by mouth two times a day for 10 days. allopurinol (ZYLOPRIM) 300 mg tablet 30 tablet 5 Sig: Take 1 tablet by mouth once daily. For gout. Start after acute pain is resolved for 5-7 days. sertraline (ZOLOFT) 50 mg tablet 30 tablet 5 Si/2 a tablet by mouth once a day for 14 days then go to one tablet daily F/u 3-4 weeks toe nail removal F/u 3 months WAE. I spent a total of 30 minutes on the date of the service which included preparing to see the patient, [id number] patient care, completing clinical documentation, performing a medically appropriate examination, counseling and educating the patient/family/caregiver and ordering medications, tests, or procedures. Chance Ferro MD [facility]24 NoteHNO ID: [id number] Author: CHANCE FERRO MD Service: ? Author Type: Physician Type: Progress Notes Filed: 05/28/2024 12:00 Note Text: Chief Complaint Patient presents with: Pain HPI Eric Araiza is a 44 year old male who presents here today for Acute onset of right foot pain/right elbow. Right foot x 1 month; right elbow started this Saturday. Location? Right foot/right elbow Pain scale? 7-8 Describe pain? Sharp and stabbing. Any injury? No injury Stooped the allopurinol since it seems like it was not helping. No longer drinks any alcohol and does not eat red meat often. The pain on the lateral side of th right foot started after the ball of the foot was hurting. Patient has been irritable for about a year, having difficulty sleeping for the past 6 months. Thinks he is depressed. Mom about a year ago. C/o redness, swelling and pus on the medial side of the right great toe. Has been doing [employer] salt soaks. Past medical history, appointments, medications, allergies reviewed. Previous Medical History PAST MEDICAL HISTORY Diagnosis Date Bicuspid aortic valve Fussion Chews tobacco 10/29/2022 Started age 17. Ex-smoker 10/29/2022 Started at age 17 and was smoking 1 pack every two weeks or more. Previous Surgical History No past surgical history on file. Family History FAMILY HISTORY Problem Relation Age of Onset None Unknown pt adopted Patient Allergies ALLERGIES No Known Allergies Current Medications Current Outpatient Medications on File Prior to Visit Medication Sig methylPREDNISolone (MEDROL, CAMI,) 4 mg Dose-Pack As instructed per package (Patient not taking: Reported on 03/15/2024) allopurinol (ZYLOPRIM) 100 mg tablet Take 1 tablet by mouth two times a day. For gout. omeprazole (PRILOSEC) 40 mg capsule Take 1 capsule by mouth once daily. No current facility-administered medications on file prior to visit. Social History Social History Tobacco Use Smoking status: Former Types: Cigarettes Smokeless tobacco: Never Tobacco comments: approx 2 cigs yearly Substance Use Topics Alcohol use: Yes Alcohol/week: 14.0 standard drinks of alcohol Types: 14 Cans of Beer (12oz) per week Drug use: No Review of Symptoms REVIEW OF SYSTEMS See HPI EXAM: BP 118/96 (BP Site: Left Arm, BP Position: Sitting, BP Cuff Size: Large Adult) Pulse 84 Temp 37.6 ?C (99.6 ?F) (Tympanic) Resp 16 Wt 120.7 kg (266 lb) BMI 37.10 kg/m? General Appearance: Well appearing, alert, in no acute distress, well-hydrated, well nourished. and Obese. Skin: Has mild erythema and swelling of the right olecranon region, right lateral foot and 1st MP right foot. The skin on the lateral side of the right big toe is erythematous swollen and has pus. . Musculoskeletal: the right elbow, right 1st MP joint of foot and lateral side of right foot are all tender to palpation and warm to touch. . Health Maintenance List Depression Screening Never done Anxiety Screening Never done Hepatitis C Screening Never done HIV Screening Never done Hepatitis B Vaccine(1 of 3 - 19+ 3-dose series) Never done Lipid Screening Never done DTaP,Tdap,Td Vaccine(2 - Td or Tdap) due on 01/17/2021 Influenza Vaccine(1) due on 04/19/2024 Covid-19 Vaccine( - 2023- season) due on 04/19/2024 HPV Vaccine Aged Out Data reviewed A/P ASSESSMENT/PLAN: 1. Acute gout of multiple sites, unspecified cause - ICD9: 274.01, ICD10: M10.9 (primary diagnosis) - will treat with colchicine and steroid. - 5-7 days after pain stops patient is to start the allopurinol 300 mg a day. Check uric acid in a month. 2. Paronychia of great toe of right foot - ICD9: 681.11, ICD10: L03.031 - Begin treatment with Cefadroxil (Duricef) as below - cont Epson salt soaks 3. Current severe episode of major depressive disorder without psychotic features without prior episode (HCC) - ICD9: 296.23, ICD10: F32.2 - will start sertraline. Discussed side affects 4. HEIDI (generalized anxiety disorder) - ICD9: 300.02, ICD10: F41.1 - as per #3 5. Ingrown nail of great toe of right foot - ICD9: 703.0, ICD10: L60.0 - f/u in 3-4 weeks for removal of nail. Requested Prescriptions Signed Prescriptions Disp Refills colchicine 0.6 mg tablet 10 tablet 1 Sig: Take one tab by mouth 3 times a day till pain stops or script finished. predniSONE (DELTASONE) 20 mg tablet 15 tablet 0 Si tabs a day by mouth for the next 5 days cefADROxil (DURICEF) 500 mg capsule 20 capsule 0 Sig: Take 1 capsule by mouth two times a day for 10 days. allopurinol (ZYLOPRIM) 300 mg tablet 30 tablet 5 Sig: Take 1 tablet by mouth once daily. For gout. Start after acute pain is resolved for 5-7 days. sertraline (ZOLOFT) 50 mg tablet 30 tablet 5 Si/2 a tablet by mouth once a day for 14 days then go to one tablet daily F/u 3-4 weeks toe nail removal F/u 3 months WAE. I spent a total of 30 minutes on the date of (more content not included)... [facility]07-28-2024 NoteHNO ID: [id number] Author: PARTH KWONG APRN.BOARD WRITER Service: ? Author Type: Nurse Practitioner Type: Progress Notes Filed: 03/15/2024 08:42 Note Text: This note was created using Meridian-IQriter. Subjective Eric Araiza is a 44 year old male. HPI Pt has had symptoms consistent with a gout flare in his left wrist for the last three weeks. Patient then developed a flare in his right great toe about 2 weeks ago. He did have a virtual visit March 04 where he was prescribed a Medrol Dosepak. He states that for him, this level of prednisone often is ineffective. He did take the Medrol Dosepak which did alleviate the toe pain but the wrist pain continues. He otherwise denies any known trauma. He does have a history of gout flares, typically with no specific triggering event. Review of Systems Constitutional: Negative for fatigue and fever. Musculoskeletal: Positive for arthralgias and joint swelling. Objective BP 116/88 Pulse 75 Temp 36.6 ?C (97.8 ?F) Resp 20 Wt 125.2 kg (276 lb 0.3 oz) SpO2 98% BMI 38.50 kg/m? Physical Exam Vitals and nursing note reviewed. Constitutional: General: He is not in acute distress. Appearance: Normal appearance. He is not ill-appearing. HENT: Head: Normocephalic. Mouth/Throat: Mouth: Mucous membranes are moist. Eyes: Conjunctiva/sclera: Conjunctivae normal. Cardiovascular: Rate and Rhythm: Normal rate and regular rhythm. Pulmonary: Effort: Pulmonary effort is normal. Breath sounds: Normal breath sounds. Musculoskeletal: Cervical back: Normal range of motion. Comments: Mild erythema noted of the left wrist. Pain with any range of motion. Limited range of motion of left wrist. Skin: General: Skin is warm and dry. Neurological: General: No focal deficit present. Mental Status: He is alert. Psychiatric: Mood and Affect: Mood normal. Behavior: Behavior normal. Assessment and Plan ASSESSMENT/PLAN: 1. Acute gout of left wrist, unspecified cause - ICD9: 274.01, ICD10: M10.9 Patient will hold his allopurinol until the gout flare has subsided. He was given a 5-day course of prednisone. Discussed OTC pain medication such as ibuprofen and Tylenol. Patient will follow-up with PCP. - PREDNISONE 50 MG TABLET [facility] History of Present illness Narrative* Parth Kwong APRN.CNP - 03/15/2024 8:33 AM EDT This note was created using [email or web address]. Subjective Eric Araiza is a 44 year old male. HPI Pt has had symptoms consistent with a gout flare in his left wrist for the last three weeks. Patient then developed a flare in his right great toe about 2 weeks ago. He did have a virtual visit March 04 where he was prescribed a Medrol Dosepak. He states that for him, this level of prednisone often is ineffective. He did take the Medrol Dosepak which did alleviate the toe pain but the wrist pain continues. He otherwise denies any known trauma. He does have a history of gout flares, typically with no specific triggering event. Review of Systems Constitutional: Negative for fatigue and fever. Musculoskeletal: Positive for arthralgias and joint swelling. Objective BP 116/88 Pulse 75 Temp 36.6 C (97.8 F) Resp 20 Wt 125.2 kg (276 lb 0.3 oz) SpO2 98% BMI 38.50 kg/m Physical Exam Vitals and nursing note reviewed. Constitutional: General: He is not in acute distress. Appearance: Normal appearance. He is not ill-appearing. HENT: Head: Normocephalic. Mouth/Throat: Mouth: Mucous membranes are moist. Eyes: Conjunctiva/sclera: Conjunctivae normal. Cardiovascular: Rate and Rhythm: Normal rate and regular rhythm. Pulmonary: Effort: Pulmonary effort is normal. Breath sounds: Normal breath sounds. Musculoskeletal: Cervical back: Normal range of motion. Comments: Mild erythema noted of the left wrist. Pain with any range of motion. Limited range of motion of left wrist. Skin: General: Skin is warm and dry. Neurological: General: No focal deficit present. Mental Status: He is alert. Psychiatric: Mood and Affect: Mood normal. Behavior: Behavior normal. Assessment and Plan ASSESSMENT/PLAN: 1. Acute gout of left wrist, unspecified cause - ICD9: 274.01, ICD10: M10.9 Patient will hold his allopurinol until the gout flare has subsided. He was given a 5-day course ofprednisone. Discussed OTC pain medication such as ibuprofen and Tylenol. Patient will follow-up with PCP. - PREDNISONE 50 MG TABLET Parth Kwong APRN.ROGE [facility] NoteHNO ID: [id number] Author: ESTEE MEJIA APRN.CNP Service: ? Author Type: Nurse Practitioner Type: Progress Notes Filed: 03/05/2024 15:36 Note Text: Telemedicine Visit - Distance Health Virtual Visit Note Patient seen on [employer] Video Visit platform. Location of patient: [place] I have communicated my name and active licensure. The patient's identity and physical location were verified at the time of this visit. Either the patient or their legal hr representative has been informed of the risks and benefits of -- and alternatives to -- treatment through a remote evaluation and consents to proceed with the evaluation remotely. History of Present Illness Eric Araiza is a 44 year old male who presents for complaints of a gout flare in the right great toe. Symptoms have been present for 2 day(s) with symptoms that are Constant. Patient was drinking ETOH prior to the flare. Toe is red, swollen and painful. Difficulty walking due to pain. Last gout flare was one year ago. Takes allopurinol daily. Denies accident/injury to toe. PAST MEDICAL HISTORY Diagnosis Date Bicuspid aortic valve Fussion Chews tobacco 10/29/2022 Started age 17. Ex-smoker 10/29/2022 Started at age 17 and was smoking 1 pack every two weeks or more. No past surgical history on file. FAMILY HISTORY Problem Relation Age of Onset None Unknown pt adopted Social History Tobacco Use Smoking status: Former Types: Cigarettes Smokeless tobacco: Never Tobacco comments: approx 2 cigs yearly Substance Use Topics Alcohol use: Yes Alcohol/week: 14.0 standard drinks of alcohol Types: 14 Cans of Beer (12oz) per week Drug use: No Current Outpatient Medications Medication Sig allopurinol (ZYLOPRIM) 100 mg tablet Take 1 tablet by mouth two times a day. For gout. omeprazole (PRILOSEC) 40 mg capsule Take 1 capsule by mouth once daily. No current facility-administered medications for this visit. ALLERGIES No Known Allergies Video Exam (Examination performed via Video enabled technology) General appearance: Alert, oriented, pleasant, in NAD :Yes Ill appearing :No Lethargic appearing :No Respiratory distress :No Musculoskeletal: +erythema and edema at the base of right great toe. Decrease ROM +tenderness with self palpation ASSESSMENT/PLAN: 1. Acute gout involving toe of right foot, unspecified cause - ICD9: 274.01, ICD10: M10.9 - Medrol dose cami as prescribed - Avoid potential gout triggers - Follow up in person if symptoms worsen or persist - METHYLPREDNISOLONE 4 MG TABLETS IN A DOSE PACK - Red flags discussed for need for in person care - All questions answered Estee Mejia APRN.[facility]07-18-2024 History of Present illness Narrative* Estee Mejia APRN.[facility] - 03/05/2024 3:18 PM EDT Telemedicine Visit - Distance Health Virtual Visit Note Patient seen on [employer] Video Visit platform. Location of patient: [place] I have communicated my name and active licensure. The patient's identity and physical location wereverified at the time of this visit. Either the patient or their legal hr representative has been informed of the risks and benefits of -- and alternatives to -- treatment through a remote evaluation andconsents to proceed with the evaluation remotely. History of Present Illness Eric Araiza is a 44 year old male who presents for complaints of a gout flare in the right great toe. Symptoms have been present for 2 day(s) with symptoms that are Constant. Patient was drinking ETOH prior to the flare. Toe is red, swollen and painful. Difficulty walking due to pain. Last gout flare was one year ago. Takes allopurinol daily. Denies accident/injury to toe. PAST MEDICAL HISTORY Diagnosis Date Bicuspid aortic valve Fussion Chews tobacco 10/29/2022 Started age 17. Ex-smoker 10/29/2022 Started at age 17 and was smoking 1 pack every two weeks or more. No past surgical history on file. FAMILY HISTORY Problem Relation Age of Onset None Unknown pt adopted Social History Tobacco Use Smoking status: Former Types: Cigarettes Smokeless tobacco: Never Tobacco comments: approx 2 cigs yearly Substance Use Topics Alcohol use: Yes Alcohol/week: 14.0 standard drinks of alcohol Types: 14 Cans of Beer (12oz) per week Drug use: No Current Outpatient Medications Medication Sig allopurinol (ZYLOPRIM) 100 mg tablet Take 1 tablet by mouth two times a day. For gout. omeprazole (PRILOSEC) 40 mg capsule Take 1 capsule by mouth once daily. No current facility-administered medications for this visit. ALLERGIES No Known Allergies Video Exam (Examination performed via Video enabled technology) General appearance: Alert, oriented, pleasant, in NAD :Yes Ill appearing :No Lethargic appearing :No Respiratory distress :No Musculoskeletal: +erythema and edema at the base of right great toe. Decrease ROM +tenderness with self palpation ASSESSMENT/PLAN: 1. Acute gout involving toe of right foot, unspecified cause - ICD9: 274.01, ICD10: M10.9 - Medrol dose cami as prescribed - Avoid potential gout triggers - Follow up in person if symptoms worsen or persist - METHYLPREDNISOLONE 4 MG TABLETS IN A DOSE PACK - Red flags discussed for need for in person care - All questions answered Estee Mejia APRN.CNP documented [facility] Instructions* Patient Instructions* Keren Palomo APRN.CNP - 10/29/2023 8:53 AM EDT ASSESSMENT/PLAN: 1. Acute gout of left knee, unspecified cause - ICD9: 274.01, ICD10: M10.9 - PREDNISONE 10 MG TABLET - Follow-up with your PCP in 3-5 days if symptoms have not improved or sooner if symptoms worsen - Discussed red flags and need for immediate medical evaluation if any occur. - Discussed supportive care treatment with fluids, rest and analgesia. - Discussed expected course of illness Keren Palomo APRN.BOARD WRITER documented in [facility]24 NoteHNO ID: [id number] Author: KEREN PALOMO APRN.CNP Service: ? Author Type: Nurse Practitioner Type: Progress Notes Filed: 10/29/2023 08:54 Note Text: Subjective HPI Eric Araiza is a 43 year old male who presents with left knee pain for the past 2 days. He states it is gout, he has had it in the past in same joint and pain is consistent. He notes swelling and tenderness in left knee, yesterday pain was so bad he almost passed out. He denies injury. He has not had a fever. He has taken prednisone in the past for gout with good relief of pain. Review of Systems Constitutional: Negative for chills and fever. Respiratory: Negative. Cardiovascular: Negative. Musculoskeletal: Positive for joint pain. Negative for falls. BP 120/92 Pulse 75 Temp 36.2 ?C (97.2 ?F) Resp 21 Wt 124.4 kg (274 lb 4 oz) SpO2 98% BMI 38.25 kg/m? PAST MEDICAL HISTORY Diagnosis Date Bicuspid aortic valve Fussion Chews tobacco 10/29/2022 Started age 17. Ex-smoker 10/29/2022 Started at age 17 and was smoking 1 pack every two weeks or more. No past surgical history on file. ALLERGIES Patient has no known allergies. MEDICATIONS allopurinol (ZYLOPRIM) 100 mg tabletTake 1 tablet by mouth two times a day. For gout.Disp: 60 tabletRfl: 11 omeprazole (PRILOSEC) 40 mg capsuleTake 1 capsule by mouth once daily.Disp: 30 capsuleRfl: 3 predniSONE (DELTASONE) 10 mg tabletTake 4 tabs daily for 3 days, then 2 tabs daily for 3 days, then 1 tab daily for 3 days with food.Disp: 21 tabletRfl: 0 FAMILY HISTORY Problem Relation Age of Onset None Unknown pt adopted Social History Tobacco Use Smoking status: Former Types: Cigarettes Smokeless tobacco: Never Tobacco comments: approx 2 cigs yearly Substance Use Topics Alcohol use: Yes Alcohol/week: 14.0 standard drinks of alcohol Types: 14 Cans of Beer (12oz) per week Drug use: No Objective Physical Exam Vitals and nursing note reviewed. Constitutional: General: He is not in acute distress. Appearance: Normal appearance. He is not ill-appearing. Cardiovascular: Rate and Rhythm: Normal rate. Pulmonary: Effort: Pulmonary effort is normal. Musculoskeletal: General: Swelling and tenderness present. No signs of injury. Legs: Comments: Left calf measures 46 cm Right calf measures 45 cm Knee swelling left knee with slight erythema of skin Skin: General: Skin is warm and dry. Capillary Refill: Capillary refill takes less than 2 seconds. Findings: Erythema present. No bruising or rash. Neurological: Mental Status: He is alert. ASSESSMENT/PLAN: 1. Acute gout of left knee, unspecified cause - ICD9: 274.01, ICD10: M10.9 - PREDNISONE 10 MG TABLET - Follow-up with your PCP in 3-5 days if symptoms have not improved or sooner if symptoms worsen - Discussed red flags and need for immediate medical evaluation if any occur. - Discussed supportive care treatment with fluids, rest and analgesia. - Discussed expected course of illness [facility] History of Present illness Narrative* Keren Palomo APRN.[facility] - 10/29/2023 8:46 AM EDT Images from the original note were not included. Subjective HPI Eric Araiza is a 43 year old male who presents with left knee pain for the past 2 days. He states it is gout, he has had it in the past in same joint and pain is consistent. He notes swelling and tenderness in left knee, yesterday pain was so bad he almost passed out. He denies injury. He has not had a fever. He has taken prednisone in the past for gout with good relief of pain. Review of Systems Constitutional: Negative for chills and fever. Respiratory: Negative. Cardiovascular: Negative. Musculoskeletal: Positive for joint pain. Negative for falls. BP 120/92 Pulse 75 Temp 36.2 C (97.2 F) Resp 21 Wt 124.4 kg (274 lb 4 oz) SpO2 98% BMI 38.25 kg/m PAST MEDICAL HISTORY Diagnosis Date Bicuspid aortic valve Fussion Chews tobacco 10/29/2022 Started age 17. Ex-smoker 10/29/2022 Started at age 17 and was smoking 1 pack every two weeks or more. No past surgical history on file. ALLERGIES Patient has no known allergies. MEDICATIONS allopurinol (ZYLOPRIM) 100 mg tablet^Take 1 tablet by mouth two times a day. For gout.^Disp: 60 tablet^Rfl: 11 omeprazole (PRILOSEC) 40 mg capsule^Take 1 capsule by mouth once daily.^Disp: 30 capsule^Rfl: 3 predniSONE (DELTASONE) 10 mg tablet^Take 4 tabs daily for 3 days, then 2 tabs daily for 3 days, then 1 tab daily for 3 days with food.^Disp: 21 tablet^Rfl: 0 FAMILY HISTORY Problem Relation Age of Onset None Unknown pt adopted Social History Tobacco Use Smoking status: Former Types: Cigarettes Smokeless tobacco: Never Tobacco comments: approx 2 cigs yearly Substance Use Topics Alcohol use: Yes Alcohol/week: 14.0 standard drinks of alcohol Types: 14 Cans of Beer (12oz) per week Drug use: No Objective Physical Exam Vitals and nursing note reviewed. Constitutional: General: He is not in acute distress. Appearance: Normal appearance. He is not ill-appearing. Cardiovascular: Rate and Rhythm: Normal rate. Pulmonary: Effort: Pulmonary effort is normal. Musculoskeletal: General: Swelling and tenderness present. No signs of injury. Legs: Comments: Left calf measures 46 cm Right calf measures 45 cm Knee swelling left knee with slight erythema of skin Skin: General: Skin is warm and dry. Capillary Refill: Capillary refill takes less than 2 seconds. Findings: Erythema present. No bruising or rash. Neurological: Mental Status: He is alert. ASSESSMENT/PLAN: 1. Acute gout of left knee, unspecified cause - ICD9: 274.01, ICD10: M10.9 - PREDNISONE 10 MG TABLET - Follow-up with your PCP in 3-5 days if symptoms have not improved or sooner if symptoms worsen - Discussed red flags and need for immediate medical evaluation if any occur. - Discussed supportive care treatment with fluids, rest and analgesia. - Discussed expected course of illness Keren Palomo APRN.BOARD WRITER documented [facility] History of Present illness Narrative* Carolyn Bueno APRN.BOARD WRITER - 06/07/2023 9:00 AM EDT This is a 43 year old male who presents today with: Patient presents with: Acute Visit: 3 bumps on head HISTORY OF PRESENT ILLNESS: Eric Araiza is a 43 year old male. Patient presents with: Acute Visit: 3 bumps on head Patient of Dr. Ferro here in the office for scalp concerns. Bumps on the scalp, noticeable about year ago. New bump noticed 2 months ago. Seem to be getting larger. Tender at times. No crusting, seeping, or bleeding. History of Gout: Was taking allopurinol 100 mg twice daily in the past. Refers he did not notice much improvement with symptoms. Stopped medication. Has noted that he will get knee pain at times. Would like to start back on medication. Denies any pain today. PAST MEDICAL HISTORY: PAST MEDICAL HISTORY Diagnosis Date Bicuspid aortic valve Fussion Chews tobacco 10/29/2022 Started age 17. Ex-smoker 10/29/2022 Started at age 17 and was smoking 1 pack every two weeks or more. No past surgical history on file. ALLERGIES Patient has no known allergies. MEDICATIONS Current Outpatient Medications Medication Sig omeprazole (PRILOSEC) 40 mg capsule Take 1 capsule by mouth once daily. Current Facility-Administered Medications Medication Dose Route Frequency perflutren lipid microspheres 1.3 mL in NaCl (PF) 0.9% 10 mL injection (DEFINITY) INTRAVENOUS DIRECTED PRN sodium chloride 0.9 % (flush) 10 mL (BD POSIFLUSH) 10 mL INTRAVENOUS DIRECTED PRN FAMILY HISTORY Problem Relation Age of Onset None Unknown pt adopted Social History Tobacco Use Smoking status: Former Types: Cigarettes Smokeless tobacco: Never Tobacco comments: approx 2 cigs yearly Substance Use Topics Alcohol use: Yes Alcohol/week: 35.0 standard drinks of alcohol Types: 14 Cans of Beer (12oz) per week Drug use: No REVIEW OF SYSTEMS GENERAL: No weight loss, malaise or fevers/chills HEENT: Negative for frequent or significant headaches, No changes in hearing or vision. NECK: Negative for lumps, goiter, pain and significant neck swelling RESPIRATORY: Negative for cough, hemoptysis, wheezing, dyspnea or shortness of breath CARDIOVASCULAR: Negative for chest pain, leg swelling, orthopnea, or palpitations GI: No nausea, vomiting, or diarrhea/constipation. No hematochezia/melena. No heartburn or reflux symptoms. : No history of dysuria, frequency or incontinence MUSCULOSKELETAL: Negative for joint pain or swelling. SKIN: Negative: + Scalp tender ENDOCRINE: Negative for cold or heat intolerance, polyuria, polydipsia and goiter NEURO: No history of headaches, syncope, paralysis, seizures or tremors MOOD: Negative for depression, anxiety, or suicidal ideation. EXAM: BP 110/80 Pulse 71 Resp 16 Wt 127.9 kg (282 lb) SpO2 97% BMI 39.33 kg/m PHYSICAL EXAM: General Appearance: Well appearing, alert, in no acute distress, well-hydrated, well nourished. Skin: + Several mobile nodules noted on the right side of scalp, mild erythema, no crusting, seeping, One nodule noted on the left side of scalp. Head: Normocephalic, no masses, lesions, tenderness or abnormalities. Eyes: Anicteric sclera. Pupils are equally round and reactive to light. Extraocular movements are intact. Extremities: No deformities, edema, skin discoloration, clubbing or cyanosis. Good capillary refill. Musculoskeletal: No joint swelling, deformity, or tenderness. Peripheral Pulses: Normal, Capillary refill <2secs, strong peripheral pulses, Pulses palpable. Neurologic: Gait normal. Sensation grossly intact. ASSESSMENT/PLAN: 1. Scalp cyst - ICD9: 706.2, ICD10: L72.9 (primary diagnosis) - Recommend consult with Dermatology. - CONSULT TO DERMATOLOGY 2. History of gout - ICD9: V12.29, ICD10: Z87.39 - Start back on allopurinol 100 mg BID. - Get labs completed in 6-8 weeks. - ALLOPURINOL 100 MG TABLET - URIC ACID BLOOD - COMP METABOLIC PANEL Follow-up pending test results or sooner as needed. Discussed treatment plan and patient voices understanding. Patient's questions answered appropriately. Medications and potential side effects were discussed and patient voices understanding. Carolyn Bueno APRN.BOARD WRITER This note was partially generated using [employer] Wonder recognition system. Note was reviewed for accuracy. There may be minor misspellings or grammar miscues with [place] voice recognition. documented in this [facility]23 Instructions* Patient Instructions* Carolyn Bueno APRN.CNP - 06/07/2023 8:38 AM EDT Recommend consult with Dermatology for further evaluation. Start back on Allopurinol 100 mg BID Get repeat labs in 6-8 weeks to check uric acid. Follow up pending test results. documented in this [facility]-2023 Miscellaneous Notes* Telephone Encounter - Anny Quiñones RN - 11/06/2022 8:51 AM EDT Patient calls back and notified of results. Voiced Understanding. Anny Quiñones RN * Telephone Encounter - Cherie Handy Cma - 11/06/2022 8:35 AM EDT Left message for patient to return call to office Cherie Handy Cma * Telephone Encounter - Chance Ferro MD - 11/05/2022 9:47 PM EDT Let patient know breathing test was normal. documented in this [facility] History of Present illness Narrative* RAKESH Flores - 11/05/2022 3:12 PM EDT PULM FUNCTION SMARTBLOCK: Provider: Chance Ferro MD Assisting Tech: RAKESH Flores Spirometry w/BD: 1 [address]2023 Miscellaneous Notes* Telephone Encounter - Karoline Keen RN - 11/01/2022 12:48 PM EDT Spoke with patient. Given message from provider's office. Patient verbalizes understanding. Karoline Keen RN * Telephone Encounter - Susanne Holliday LPN - 11/01/2022 12:35 PM EDT TC to pt. LM to call office, ask for triage nurse to get results. Susanne Holliday LPN * Telephone Encounter - Poonam Alves PA-C - 11/01/2022 12:29 PM EDT Let patient know that his labs are all okay. documented in this [facility]2023 Miscellaneous Notes* Telephone Encounter - Keri Mancilla Ma - 10/30/2022 8:15 AM EDT Patient was notified Keri Mancilla Ma * Telephone Encounter - Chance Ferro MD - 10/29/2022 9:38 PM EDT Let patient know chest x-ray was ok. documented in this [facility]03-13-2023 History of Present illness Narrative* Carina Murray, RT(R) - 10/29/2022 5:00 PM EDT Radiology Service Progress Note PATIENT NAME: Eric Araiza DATE OF SERVICE: October 29, 2022 TIME: 5:00 PM PATIENT IDENTITY VERIFICATION COMPLETED USING TWO (2) IDENTIFIERS: Name and Date of confirmedby patient verbally. FALL SCREENING: Has the patient had 2 falls in the last year or 1 fall with injury or currently using an Ambulatory Assistive Device (Walker, Cane, Wheelchair, Crutches, etc.)? No PATIENT GENDER DATA: Male PATIENT RELEVANT IMPLANT DATA REVIEWED: Not Applicable RADIOLOGY DEPARTMENT: General X-ray: Exam(s) Completed: Chest X-Ray PERIPHERAL IV DATA: Not applicable SIGNED BY: RT Saray(R) October 29, 2022 5:00 PM documented in this [facility] History of Present illness Narrative* Chance Ferro MD - 10/29/2022 3:48 PM EDT Chief Complaint Patient presents with: Chest Pain: Patient is here for chest pain/shortness of breath, heart palps HPI Eric Araiza is a 42 year old male who presents here today for chest pain/shortness of breath,heart palps. Patient has noticed symptoms for the past month. Can be at rest or with activity. The shortness of breath can occur with the palpitations or by itself. Sometimes gets a pain with the palpitations or shortness of breath and sometimes is by itself. Has gotten light headed and dizzy at times. No syncope. No nausea. Sometimes gets cold sweat. Chest pain does not radiate to jaw or arms. No leg swelling. Has lost about 20 lbs in the past two months. He stopped drinking and cut out a lot of bad foods. Has not done any increase exercising. Is a ex-smoker. Started at age 17 and was smoking 1 pack every two weeks or more. Quite around age 27. Does chew tobacco. He is adopted but did fond out the one of his Grand Fathers had heart disease. May get GERD every other day. This does feel different then the chest pain he has been getting. There are times where the chest pain will go down into the stomach and then feels like heart burn. Past medical history, appointments, medications, allergies reviewed. Previous Medical History PAST MEDICAL HISTORY Diagnosis Date Bicuspid aortic valve Fussion Previous Surgical History No past surgical history on file. Family History FAMILY HISTORY Problem Relation Age of Onset None Unknown pt adopted Patient Allergies ALLERGIES No Known Allergies Current Medications Current Outpatient Medications on File Prior to Visit Medication Sig predniSONE (DELTASONE) 20 mg tablet 2 by mouth daily for 5 days. famotidine (PEPCID) 20 mg tablet Take 1 tablet by mouth at bedtime as needed. allopurinol (ZYLOPRIM) 200 mg tablet Taiwanese Formula Take 200 mg by mouth once daily. nabumetone 500 mg tablet Take 1 tablet by mouth twice daily. TAKE WITH FOOD (Patient not taking: Reported on 04/02/2018 ) No current facility-administered medications on file prior to visit. Social History Social History Tobacco Use Smoking status: Light Smoker Smokeless tobacco: Never Tobacco comments: approx 2 cigs yearly Substance Use Topics Alcohol use: Yes Alcohol/week: 35.0 standard drinks Types: 14 Cans of Beer (12oz) per week Drug use: No Review of Symptoms REVIEW OF SYSTEMS See HPI EXAM: BP (P) 124/92 (BP Site: Right Arm, BP Position: Sitting, BP Cuff Size: Large Adult) Pulse (!) (P)58 Temp (P) 36.9 C (98.5 F) (Tympanic) Wt (P) 118.4 kg (261 lb) SpO2 (P) 98% BMI (P) 35.40 kg/m BP 118/78 Pulse (!) (P) 58 Temp (P) 36.9 C (98.5 F) (Tympanic) Wt (P) 118.4 kg (261 lb) SpO2 (P) 98% BMI (P) 35.40 kg/m General Appearance: Well appearing, alert, in no acute distress, well-hydrated, well nourished.. Neck: Supple, no adenopathy; thyroid symmetric, normal size, no bruits. Lungs: Lungs clear to auscultation. No wheezing, rhonchi, rales.. Heart: Negative findings: regular rate and rhythm, S2 normal, no murmurs, rubs, clicks or gallops, Positive findings: Split S1. Abdomen: Normal abdominal exam, Abdomen soft, non-tender. Bowel sounds normal. No masses, organomegaly. Extremities: No deformities, edema, skin discoloration, Good capillary refill. . Peripheral Pulses: Normal. Health Maintenance List HEPATITIS B(1 of 3 - 3-dose series) Never done PNEUMOCOCCAL(1 - PCV) Never done HEPATITIS C SCREENING Never done HIV SCREENING Never done LIPID SCREEN Never done DTAP,TDAP,TD(2 - Td or Tdap) due on 01/17/2021 COVID-19 VACCINE(3 - Booster for Pfizer series) due on 09/16/2021 INFLUENZA(1) due on 04/19/2022 DEPRESSION ASSESSMENT Never done Data reviewed In office EKG: normal rhythm with sinus nahomi. Possible LVH. Non-specific inverted T-wave III and flat in aVF. No other acute ST or T wave changes. No old EKG to compare to. A/P ASSESSMENT/PLAN: 1. Palpitations - ICD9: 785.1, ICD10: R00.2 (primary diagnosis) Check - STRESS ECHO TREADMILL - PERFLUTREN LIPID MICROSPHERES 1.1 MG/ML INJECTION IN NS 10 ML - SODIUM CHLORIDE 0.9 % (FLUSH) INJECTION SYRINGE - [employer] EVENT MONITOR - TSH BLD - COMP METABOLIC PANEL - T4 FREE/FREE THYROX - CBC 2. Chest pain, unspecified type - ICD9: 786.50, ICD10: R07.9 Check - STRESS ECHO TREADMILL - PERFLUTREN LIPID MICROSPHERES 1.1 MG/ML INJECTION IN NS 10 ML - SODIUM CHLORIDE 0.9 % (FLUSH) INJECTION SYRINGE - [employer] EVENT MONITOR - XR CHEST 2V FRONTAL/LAT - H PYLORI IGG AB 3. SOB (shortness of breath) - ICD9: 786.05, ICD10: R06.02 Check - STRESS ECHO TREADMILL - PERFLUTREN LIPID MICROSPHERES 1.1 MG/ML INJECTION IN NS 10 ML - SODIUM CHLORIDE 0.9 % (FLUSH) INJECTION SYRINGE - [employer] EVENT MONITOR - XR CHEST 2V FRONTAL/LAT - SPIROMETRY - BASELINE AND POST DILATOR - CBC 4. Ex-smoker - ICD9: V15.82, ICD10: Z87.891 Check - STRESS ECHO TREADMILL - PERFLUTREN LIPID MICROSPHERES 1.1 MG/ML INJECTION IN NS 10 ML - SODIUM CHLORIDE 0.9 % (FLUSH) INJECTION SYRINGE - SPIROMETRY - BASELINE AND POST DILATOR 5. Chews tobacco - ICD9: 305.1, ICD10: Z72.0 - Cessation encouraged. - Counseling was given focusing on the harmful effects of this addiction especially given the patient's medical condition(s) which will be worsened because of the chemicals in tobacco. - STRESS ECHO TREADMILL - PERFLUTREN LIPID MICROSPHERES 1.1 MG/ML INJECTION IN NS 10 ML - SODIUM CHLORIDE 0.9 % (FLUSH) INJECTION SYRINGE 6. Bicuspid aortic valve - ICD9: 746.4, ICD10: Q23.1 Check - STRESS ECHO TREADMILL - PERFLUTREN LIPID MICROSPHERES 1.1 MG/ML INJECTION IN NS 10 ML - SODIUM CHLORIDE 0.9 % (FLUSH) INJECTION SYRINGE 7. GERD without esophagitis - ICD9: 530.81, ICD10: K21.9 - Begin treatment with Prilosec 40 mg QD - H PYLORI IGG AB Requested Prescriptions Signed Prescriptions Disp Refills omeprazole (PRILOSEC) 40 mg capsule 30 capsule 3 Sig: Take 1 capsule by mouth once daily. F/u 4 weeks Chance Ferro MD documented in this encounterMount [facility]10[facility]22 History of Present illness Narrative* Kash Loera, KAYDEN[facility] - 06/16/2022 11:11 AM EDT Images from the original note were not included. Subjective HPI HPI Eric Araiza is a 42 year old male who presents today for CC of left knee pain. This started 2 days ago. Has tried otc medication, compression, ice for relief. Symptoms are worsened by rom. Denies injury. Denies numbness/tingling of left lower extremity. .Patient presents with: Knee Pain: left knee pain and swelling x 2 days, warm to touch, denies injury PAST MEDICAL HISTORY Diagnosis Date Bicuspid aortic valve Fussion No past surgical history on file. ALLERGIES Patient has no known allergies. MEDICATIONS famotidine (PEPCID) 20 mg tablet Take 1 tablet by mouth at bedtime as needed. allopurinol (ZYLOPRIM) 200 mg tablet Taiwanese Formula Take 200 mg by mouth once daily. predniSONE (DELTASONE) 10 mg tablet Take 4 tabs daily for 3 days, then 2 tabs daily for 3 days, then 1 tab daily for 3 days with food. nabumetone 500 mg tablet Take 1 tablet by mouth twice daily. TAKE WITH FOOD (Patient not taking: Reported on 04/02/2018 ) FAMILY HISTORY Problem Relation Age of Onset None Unknown pt adopted Social History Tobacco Use Smoking status: Light Smoker Smokeless tobacco: Never Tobacco comments: approx 2 cigs yearly Substance Use Topics Alcohol use: Yes Alcohol/week: 35.0 standard drinks Types: 14 Cans of Beer (12oz) per week Drug use: No ROS Objective Blood pressure 162/82, pulse 82, temperature 37.1 C (98.7 F), resp. rate 16, weight 120.2 kg (265 lb), SpO2 97 %. Bp rechecked manual by provider 132/70 Physical Exam Constitutional: General: He is not in acute distress. Appearance: He is not toxic-appearing or diaphoretic. HENT: Head: Normocephalic and atraumatic. Cardiovascular: Pulses: Dorsalis pedis pulses are 2+ on the left side. Posterior tibial pulses are 2+ on the left side. Pulmonary: Effort: Pulmonary effort is normal. No accessory muscle usage or respiratory distress. Musculoskeletal: Legs: Neurological: Mental Status: He is alert and oriented to person, place, and time. ASSESSMENT/PLAN: 1. Patellar bursitis of left knee - ICD9: 726.60, ICD10: M70.52 -use medication as prescribed -follow up if symptoms persist, change Worsening s/s go to ER. Compression/ice discussed - PREDNISONE 10 MG TABLET Kash Loera APRN.ROGE documented in this encounterMount [facility]09-14-2022 Miscellaneous Notes* Telephone Encounter - Sho Shipman LPN - 05/02/2022 8:04 AM EDT Patient returned call and went over results, notes from express care provider with understanding. * Telephone Encounter - Erika Fan - 05/02/2022 8:00 AM EDT Left message for patient to return call. Erika Fan * Telephone Encounter - Jennifer King APRN.BOARD WRITER - 05/02/2022 7:36 AM EDT Please inform patient that his lab work looks great. CBC which shows infection and immune is normal. Lipase for pancrease is normal CMP regarding his kidney and gallbladder is normal as well. Continue taking the medications discussed and if symptoms persist follow up with PCP for additionaltesting and imaging. documented in this [facility]09-13-2022 Instructions* Patient Instructions* Jennifer King APRN.CNP - 05/01/2022 3:16 PM EDT ABDOMINAL PAIN GENERAL INFORMATION: Many medical conditions can cause abdominal pain. Often, the cause cannot be found. INSTRUCTIONS: 1. Your doctor did not find any evidence of a serious disease that could be causing your pain. However, you should return immediately if you develop any of the symptoms listed below. These could be signs of serious diseases that need immediate medical care. 2. You should follow up with your regular physician or with the doctor recommended to you by the emergency department. 3. Rest in bed until you feel better. 4. Take your temperature every 4 hours. 5. Do not take any medications not prescribed by the physician including laxatives and pain killers. 6. As long as you still have pain, do not eat solid foods or drink large amounts of fluids. You maytake small sips of clear liquids or suck on ice. CONTACT YOUR DOCTOR OR RETURN TO THE EMERGENCY DEPARTMENT IF: 1. Your pain gets worse or concentrates in only one area. 2. You vomit blood or find blood in your stool or urine. 3. You are dizzy or faint. 4. Your abdomen becomes swollen or your bowel movements stop. 5. You have a temperature over 102 F (39 C). 6. You have trouble passing urine. 7. You feel short of breath. documented in this encounter[facility]09-[facility]-2022 History of Present illness Narrative* Jennifer King APRN.CNP - 05/01/2022 3:01 PM EDT This note was created using NoteWriter. Subjective Eric Araiza is a 42 year old male. 42 year old male with PMH gout presents for abdominal pain. Acute onset Saturday Left mid abdomen Endorses intermittent. States that he is experiencing 5 to 6 bouts a day States pain is dull, left mid abdomen States the bouts themselves last about 20 minutes. Denies N/V/D Denies sx Denies testicular pain or swelling. Denies fever or chills. Denies using homeopathic or OTC medicines. Denies prior history of same in past. Denies abdominal pain presently. The history is provided by the patient. No speech and language specialist was used. Abdominal Pain This is a new problem. The current episode started more than 2 days ago. The problem occurs daily. The problem has not changed since onset.The pain is associated with an unknown factor. The pain is located in the LUQ and LLQ. The quality of the pain is dull. The pain is at a severity of 5/10. The pain is moderate. Pertinent negatives include anorexia, fever, belching, diarrhea, flatus, hematochezia, melena, nausea, vomiting, constipation, dysuria, frequency, hematuria, headaches, arthralgias and myalgias. Nothing aggravates the symptoms. Nothing relieves the symptoms. Past workup does not include GI consult, CT scan, ultrasound, surgery or barium enema. His past medical history does not include PUD, gallstones, GERD, ulcerative colitis, Crohn's disease or irritable bowel syndrome. PAST MEDICAL HISTORY Diagnosis Date Bicuspid aortic valve Fussion No past surgical history on file. ALLERGIES Patient has no known allergies. MEDICATIONS allopurinol (ZYLOPRIM) 200 mg tablet Taiwanese Formula Take 200 mg by mouth once daily. famotidine (PEPCID) 20 mg tablet Take 1 tablet by mouth at bedtime as needed. nabumetone 500 mg tablet Take 1 tablet by mouth twice daily. TAKE WITH FOOD (Patient not taking: Reported on 04/02/2018 ) FAMILY HISTORY Problem Relation Age of Onset None Unknown pt adopted Social History Tobacco Use Smoking status: Light Smoker Smokeless tobacco: Never Tobacco comments: approx 2 cigs yearly Substance Use Topics Alcohol use: Yes Alcohol/week: 35.0 standard drinks Types: 14 Cans of Beer (12oz) per week Drug use: No Review of Systems Constitutional: Negative for activity change, appetite change and fever. HENT: Negative for congestion, dental problem, ear discharge, ear pain, postnasal drip, rhinorrhea,sinus pressure, sneezing, sore throat and tinnitus. Eyes: Negative for pain, discharge and itching. Respiratory: Negative for apnea, cough, choking and chest tightness. Cardiovascular: Negative for chest pain, palpitations and leg swelling. Gastrointestinal: Positive for abdominal pain. Negative for anorexia, constipation, diarrhea, flatus, hematochezia, melena, nausea and vomiting. Genitourinary: Negative for dysuria, frequency and hematuria. Musculoskeletal: Negative for arthralgias, back pain and myalgias. Skin: Negative for color change, pallor, rash and wound. Allergic/Immunologic: Negative for environmental allergies, food allergies and immunocompromised state. Neurological: Negative for dizziness, facial asymmetry and headaches. Hematological: Negative for adenopathy. Does not bruise/bleed easily. Psychiatric/Behavioral: Negative for agitation and behavioral problems. Objective BP 122/80 Pulse 68 Temp 36.7 C (98 F) Resp 16 Wt 121.6 kg (268 lb) SpO2 97% BMI 36.35 kg/m Physical Exam Vitals and nursing note reviewed. Constitutional: General: He is not in acute distress. Appearance: Normal appearance. He is not ill-appearing, toxic-appearing or diaphoretic. HENT: Head: Normocephalic and atraumatic. Right Ear: External ear normal. Left Ear: External ear normal. Nose: Nose normal. No congestion or rhinorrhea. Mouth/Throat: Mouth: Mucous membranes are moist. Pharynx: Oropharynx is clear. No oropharyngeal exudate or posterior oropharyngeal erythema. Eyes: General: Right eye: No discharge. Left eye: No discharge. Extraocular Movements: Extraocular movements intact. Conjunctiva/sclera: Conjunctivae normal. Pupils: Pupils are equal, round, and reactive to light. Cardiovascular: Rate and Rhythm: Normal rate and regular rhythm. Pulses: Normal pulses. Heart sounds: Normal heart sounds. No murmur heard. No friction rub. No gallop. Pulmonary: Effort: Pulmonary effort is normal. No respiratory distress. Breath sounds: Normal breath sounds. No stridor. No wheezing, rhonchi or rales. Chest: Chest wall: No tenderness. Abdominal: General: Abdomen is flat. There is no distension. Palpations: Abdomen is soft. There is no mass. Tenderness: There is no abdominal tenderness. There is no right CVA tenderness, left CVA tenderness, guarding or rebound. Hernia: No hernia is present. Musculoskeletal: General: No swelling, tenderness, deformity or signs of injury. Normal range of motion. Cervical back: Normal range of motion and neck supple. No rigidity or tenderness. Right lower leg: No edema. Left lower leg: No edema. Lymphadenopathy: Cervical: No cervical adenopathy. Skin: General: Skin is warm and dry. Capillary Refill: Capillary refill takes less than 2 seconds. Coloration: Skin is not jaundiced or pale. Findings: No bruising, lesion or rash. Neurological: General: No focal deficit present. Mental Status: He is alert and oriented to person, place, and time. Cranial Nerves: No cranial nerve deficit. Sensory: No sensory deficit. Motor: No weakness. Coordination: Coordination normal. Gait: Gait normal. Deep Tendon Reflexes: Reflexes normal. Psychiatric: Mood and Affect: Mood normal. Behavior: Behavior normal. Thought Content: Thought content normal. Assessment and Plan ASSESSMENT/PLAN: 1. Abdominal pain, unspecified abdominal location - ICD9: 789.00, ICD10: R10.9 Etiology unclear Differential Diagnosis includes GERD, Gastritis, Gall bladder colic/cholelithiasis, Diverticulitis,Kidney stones/colic, Appendicitis, Ovarian cyst, and Cystitis - Begin treatment with Pepcid 20 mg QD - Labs of CBC with Diff, CMP, Lipase, and Urine analysis - [place] low residue diet - Follow up in 2 days or sooner if worsening of symptoms - CBC + DIFF - FAMOTIDINE 20 MG TABLET - COMP METABOLIC PANEL - LIPASE BLD - UA DIP, URINE (POC) Jennifer King APRN.CNP documented in this encounterDelaware [facility] Hospitalr summary Author [facility] Note Date/Time May 03, 2025 7:27am [facility] Medical Records Department [address] [place] [address] Emergency Department Summary 05/03/25 MR#: [id number] Acct: [id number] Name: ERIC ARAIZA Rep #:[id number] : 1980 45 From: Mike leon DO PCP: Dr. Bert Johnson, DO Status:REG ER Location: ED HPI History of Present Illness Chief Complaint: Lower Extremity Injury Narrative Narrative: Chief complaint and HPI: 45-year-old male with past medical history of gout presents for evaluation of right knee pain. Patient states that he has had painin his right knee for the past 2 weeks intermittently. He states that the pain is located on the lateral aspect of the knee. He states there was swelling in the knee that significantly improved after steroids. On chart review, he went to urgent care on 04/28 for the same complaint. He had an x-ray performed and was placed on steroids for possible gout. He states that he has not been takinghis allopurinol secondary for concern of possible gout. He states this does notfeel like his typical gout flare. His knee is not red or warm. Movement/walking on the knee makes the pain worse. He denies any trauma or injury. Denies any numbness or tingling. Denies any fever, chills, shortness of breath, chest pain abdominal pain, nausea, vomiting. Denies any calf pain orswelling. Review of systems: See HPI Medications: As listed on the chart Allergies: As listed on the chart PFSH: Per chart Vital signs: As listed on the chart. Reviewed. Physical exam: Gen: A&O x3, NAD Head: Normocephalic, atraumatic Eyes: No sclera icterus, conjunctiva clear ENT: Moist mucous membranes CV: Regular rate Resp: Nonlabored respirations Musc: Full ROM of all the extremities except for the right lower extremity whichis limited in active range of motion secondary to lateral knee pain, full passive range of motion, no deformity, no knee instability, patient has tenderness to palpation along the lateral collateral ligament of the knee otherwise knee is nontender, no significant joint or knee swelling, no erythema/warmth/crepitus/ecchymosis/rash, no meniscal tenderness, no calf swelling or tenderness, negative Homans' sign, DP/PT pulses +2 bilaterally, compartments soft, good capillary refill, sensation intact Skin: Warm, dry Neuro: Alert, oriented, grossly intact Psych: Cooperative, appropriate mood and affect PFSH PFSH Medical History Bicuspid aortic valve Bradycardia Dilated aortic root Gout Gout of right elbow Home Medications ?Medication ?Instructions ?Recorded ?Last Taken ?Type allopurinol 100 mg tablet 300 mg PO DAILY 11/23/21 Unk nown History prednisone 50 mg tablet 50 mg PO QDAY #7 tabs Unknown Rx Allergy/AdvReac Type Severity Reaction Status Date / Time No Known Allergies Allergy Verified 05/03/25 06:53 Family History Other Heart disease Social History adopted: Yes Smoking Status: Current every day smoker tobacco type: e-cigarettes and smokeless tobacco alcohol intake: current details: 14 cans of beer per week substance use type: does not use caffeine: Yes EXAM Physical Exam Const Vital Signs: 05/03/25 06:48 Temperature 98.0 F Temperature Source Oral Pulse Rate 69 Respiratory Rate 18 Blood Pressure 109/87 H Blood Pressure Mean 94 Pulse Ox 98 Oxygen Delivery Method Room Air MDM MDM MDM Narrative Medical decision making narrative: 45-year-old male with past medical history of gout presents for evaluation of right knee pain. Patient states that he has had pain in his right knee for the past 2 weeks intermittently. He states that the pain is located on the lateral aspect of the knee. He states there was swelling in the knee that significantlyimproved after steroids. On chart review, he went to urgent care on 04/28 for the same complaint. He had an x-ray performed and was placed on steroids for possible gout. I reviewed the note as well as the x-ray. X-ray was unremarkable. He states this does not feel like his typical gout flare. See physical exam findings. Physical exam is not consistent with gout or septic arthritis. No large knee effusion. Patient is tender only along the lateral collateral ligament of the knee. Suspect sprain. I do not think any repeat x-rays are needed at this time. I did offer in case there is an occult fracture, patient declined. I do think this is reasonable as I have low suspicion for fracture. I do not think any laboratory workup is needed. Suggest [id number] knee brace. Patient educated on RICE therapy. He is given IM Toradol here for pain. Follow- up with orthopedics. He confirmed understand theplan. Patient stable to discharge home. Patient requesting work note which wasgiven. Impression: 1. Right knee sprain Discharge Plan Triage Chief Complaint: Lower Extremity Injury ED Provider: Mike Quintero Dx/Rx/DC Orders Prescriptions: No Action allopurinol 100 mg tablet 300 mg PO DAILY prednisone 50 mg tablet 50 mg PO QDAY Qty: 7 0RF Primary Care Provider: Bert Johnson Referrals: Bert Johnson DO [Primary Care Provider] - Print Language: Lithuanian What to do if you have Problems For any increased pain, shortness of breath, bleeding, nausea or vomiting, chestpain, or any unexpected problems, contact your Primary Care Provider. Call [facility] ([phone]) or report to the closest Emergency Room. Call 911 if necessary. 05/03/25 07 <Electronically signed by Mike Quintero DO> Cosigner Signature (if applicable): CC: Dr. Bret Johnson DO ~ Signed [facility] Work Phone: Evaluation note* Diagnosis Onset Date Resolution Status Bicuspid aortic valve acute Bradycardia acute Dilated aortic root acute [facility] Work Phone: Evaluation note* Diagnosis Abdominal pain, unspecified abdominal location- [facility] Diagnosis Patellar bursitis of left knee- [facility]* Diagnosis Palpitations- Primary Chest pain, unspecified type SOB (shortness of breath) Shortness of breath Ex-smoker Personal history of tobacco use, presenting hazards to health Chews tobacco Tobacco use disorder Bicuspid aortic valve Congenital insufficiency of aortic valve GERD without esophagitis Esophageal reflux [facility] Diagnosis Ex-smoker Personal history of tobacco use, presenting hazards to health SOB (shortness of breath) Shortness of breath [facility] Diagnosis Scalp cyst- Primary Sebaceous cyst History of gout Personal history of other endocrine, metabolic, and immunity disorders [facility] this [facility] Diagnosis Acute gout of left knee, unspecified cause- Primary documented in this encounter [facility] note* Diagnosis Acute gout involving toe of right foot, unspecified cause- Primary [facility] Diagnosis Acute gout of left wrist, unspecified cause- Primary [facility]* Diagnosis Chest pain, unspecified type SOB (shortness of breath) Shortness of breath documented in this encounter [facility] note* Diagnosis Acute gout of multiple sites, unspecified cause- Primary Paronychia of great toe of right foot Onychia and paronychia of toe Current severe episode of major depressive disorder without psychotic features without prior episode (HCC) HEIDI (generalized anxiety disorder) Generalized anxiety disorder Ingrown nail of great toe of right foot [facility] this [facility] Diagnosis Gout, unspecified cause, unspecified chronicity, unspecified site- Primary documented in this encounter [facility] note* Diagnosis Ingrown toenail- Primary Ingrowing nail documented in this encounter [facility] note* Diagnosis Ingrown nail of great toe of right foot- Primary documented in this encounter [facility] note* Diagnosis Ingrown nail of great toe of right foot- Primary Gout, unspecified cause, unspecified chronicity, unspecified site Cellulitis of skin Cellulitis and abscess of unspecified site documented in this encounter [facility] note* Diagnosis Onset Date Resolution Status Admit Date Right knee pain noneactive April 28, 2025 7:44am [facility] Work Phone: Hospital Discharge instructionsAdditional Instructions Recommend [id number] knee brace. Ice and elevation for swelling if it develops. Recommend ibuprofen and Tylenol for pain. Received Toradol here in the emergency department, no ibuprofen for 8 hours. Return back to the ED if symptoms change or worsen. Follow-up with orthopedic surgery.[facility] Work Phone: Reason for referral (narrative)* Outpatient Procedure (Routine) - Authorized Specialty Diagnoses / Procedures Referred By Addison t Referred To Contact [facility] Diagnoses Ex-smoker SOB (shortness of breath) Procedures SPIROMETRY - BASELINE AND POST DILATOR BRNCDILAT RSPSE SPMTRY PRE&POST-BRNCDILAT ADMN Chance Ferro MD [address] [place] [address] [facility] [address] [place] [address] Referral ID Status Reason Start Date Expiration Date Visits Requested Visits Authorized [id number] Authorized Auto-Generat ed Referral 10/29/2022 11/28/2023 1 1 * Outpatient Procedure (Routine) - Pending Review Specialty Diagnoses / Procedures Referred By Contac t Referred To Contact [facility] Diagnoses Ex-smoker Chews tobacco Palpitations Chest pain, unspecified type SOB (shortness of breath) Bicuspid aortic valve Procedures STRESS ECHO TREADMILL ECHO TTHRC R-T 2D W/WO M-MODE COMPLETE REST&ST Chance Ferro MD [address] [place] [address] [facility] [address] [place] [address] Referral ID Status Reason Start Date Expiration Date Visits Requested Visits Authorized [id number] Pending Review Auto-Generat ed Referral 10/29/2022 10/29/[address]ative)No reason for referral information availableJenks Medical Services Work Phone: Chief Complaint and Reason for Visit Chief Complaint RE-ESTABLISH CARE/SE LF REF. BRADYCARDIA, MURMUR Reason for Visit Bicuspid aortic valv e Bradycardia Dilated aortic root Chief Complaint Admit Date SWOLLEN R KNEE April 28, 2025 7:44am XRAY April 28, 2025 7:57am Reason for Visit Admit Date Right knee pain April 28, 2025 7:44am Chief Complaint Admit Date SWOLLEN R KNEE April 28, 2025 7:44am XRAY April 28, 2025 7:57am Lower Extremitu Injury May 03, 025 6:47am Advance Directives Advance Directive Response Recorded Date/ Time Living Will No January 31, 2015 9:41pm Power of Die Casting Machine Maintainer No January 31 5 9:41pm Advance Directive Response Recorded Date/ Time Do you have a Healthcare Power of Die Casting Machine Maintainer? No May 03, 2025 6:53am Reason for Referral Specialty Diagnoses / Procedures Referred By Contac t Referred To Contact Dermatology Diagnoses Scalp cyst Procedures CONSULT TO DERMATOLOGY Carolyn Bueno APRN.BOARD WRITER [address] [place] [address] Referral ID Status Reason Start Date Expiration Date Visits Requested Visits Authorized [id number] Ref Not Required PCP Requested Referral 3 06/06/2024 1 1 Summary Purpose Family History No Family History Records Found Additional Source Comments Goals (unrecognized section and content) Goals may be documented in a n alternate sectionGoals may be documented in an alternate sectionGoals may be documented in an alternate sectionGoals may be documented in an alternate section Source Comments (unrecognize d section and content) In the event this informatio n is protected by the Federal Confidentiality of Alcohol and Drug Abuse Patient Records regulations: The Federal rules restrict any use of the information to criminally investigate or prosecute any alcohol or drug abuse patient.[facility] the event this information is protected by the Federal Confidentiality of Alcohol and Drug Abuse Patient Records regulations: The Federal rules restrict any use of the information to criminally investigate or prosecute any alcohol or drug abuse patient.[facility] the event this information is protected by the Federal Confidentiality of Alcohol and Drug Abuse Patient Records regulations: The Federal rules restrict any use of the information to criminally investigate or prosecute any alcohol or drug abuse patient.[facility] the event this information is protected by the Federal Confidentiality of Alcohol and Drug Abuse Patient Records regulations: The Federal rules restrict any use of the information to criminally investigate or prosecute any alcohol or drug abuse patient.[facility] the event this information is protected by the Federal Confidentiality of Alcohol and Drug Abuse Patient Records regulations: The Federal rules restrict any use of the information to criminally investigate or prosecute any alcohol or drug abuse patient.[facility] the event this information is protected by the Federal Confidentiality of Alcohol and Drug Abuse Patient Records regulations: The Federal rules restrict any use of the information to criminally investigate or prosecute any alcohol or drug abuse patient.[facility] the event this information is protected by the Federal Confidentiality of Alcohol and Drug Abuse Patient Records regulations: The Federal rules restrict any use of the information to criminally investigate or prosecute any alcohol or drug abuse patient.[facility] the event this information is protected by the Federal Confidentiality of Alcohol and Drug Abuse Patient Records regulations: The Federal rules restrict any use of the information to criminally investigate or prosecute any alcohol or drug abuse patient.[facility] the event this information is protected by the Federal Confidentiality of Alcohol and Drug Abuse Patient Records regulations: The Federal rules restrict any use of the information to criminally investigate or prosecute any alcohol or drug abuse patient.[facility] the event this information is protected by the Federal Confidentiality of Alcohol and Drug Abuse Patient Records regulations: The Federal rules restrict any use of the information to criminally investigate or prosecute any alcohol or drug abuse patient.[facility] the event this information is protected by the Federal Confidentiality of Alcohol and Drug Abuse Patient Records regulations: The Federal rules restrict any use of the information to criminally investigate or prosecute any alcohol or drug abuse patient.[facility] the event this information is protected by the Federal Confidentiality of Alcohol and Drug Abuse Patient Records regulations: The Federal rules restrict any use of the information to criminally investigate or prosecute any alcohol or drug abuse patient.[facility] the event this information is protected by the Federal Confidentiality of Alcohol and Drug Abuse Patient Records regulations: The Federal rules restrict any use of the information to criminally investigate or prosecute any alcohol or drug abuse patient.[facility] the event this information is protected by the Federal Confidentiality of Alcohol and Drug Abuse Patient Records regulations: The Federal rules restrict any use of the information to criminally investigate or prosecute any alcohol or drug abuse patient.[facility] the event this information is protected by the Federal Confidentiality of Alcohol and Drug Abuse Patient Records regulations: The Federal rules restrict any use of the information to criminally investigate or prosecute any alcohol or drug abuse patient.[facility] the event this information is protected by the Federal Confidentiality of Alcohol and Drug Abuse Patient Records regulations: The Federal rules restrict any use of the information to criminally investigate or prosecute any alcohol or drug abuse patient.[facility] the event this information is protected by the Federal Confidentiality of Alcohol and Drug Abuse Patient Records regulations: The Federal rules restrict any use of the information to criminally investigate or prosecute any alcohol or drug abuse patient.[facility] the event this information is protected by the Federal Confidentiality of Alcohol and Drug Abuse Patient Records regulations: The Federal rules restrict any use of the information to criminally investigate or prosecute any alcohol or drug abuse patient.[facility] the event this information is protected by the Federal Confidentiality of Alcohol and Drug Abuse Patient Records regulations: The Federal rules restrict any use of the information to criminally investigate or prosecute any alcohol or drug abuse patient.[facility] the event this information is protected by the Federal Confidentiality of Alcohol and Drug Abuse Patient Records regulations: The Federal rules restrict any use of the information to criminally investigate or prosecute any alcohol or drug abuse patient.[facility] Reason for Visit (unrecogniz ed section and content) Reason Comments Abdominal Pain mid abdominal pain, comes and goes, dx with gout all over Reason Comments Results Reason Comments Knee Pain left knee pain and s welling x 2 days, warm to touch, denies injury Reason Comments Chest Pain Patient is here for chest pain/shortness of breath, heart palps Reason Comments Spirometry Specialty Diagnoses / Procedures Referred By Contac t Referred To Contact [facility] Diagnoses Ex-smoker SOB (shortness of breath) Procedures SPIROMETRY - BASELINE AND POST DILATOR BRNCDILAT RSPSE SPMTRY PRE&POST-BRNCDILAT ADMChance Cardenas MD [address] [place] [address] [facility] [address] [place] [address] Referral ID Status Reason Start Date Expiration Date V isits Requested Visits Authorized [id number] Closed Auto-Generate d Referral 10/29/2022 11/28/2023 1 1 Reason Comments Acute Visit 3 bumps on head Reason Comments Knee Pain Possible gout in lef t knee, swelling and pain x 2 days Reason Comments Gout Reason Comments Pain Left wrist pain/swel ling x 1 week Reason Comments Pain Reason Onset Date Comments Refill Request 06/09/2024 Reason Comments Ingrown Toenail Right toe Reason Comments Follow Up Reason Comments Ingrown Nail Right big toe, red a nd painful x 2/3 weeks, removal by Dr. Ferro 06/12, Gout Care Teams (unrecognized sec tion and content) Assistant Plant Control Operator Relationship Specialty Start Date End Date Chance Ferro MD [address] [place] [address] PCP - General Family Practice 09/29/13 Assistant Plant Control Operator Relationship Specialty Start Date End Date Chance Ferro MD [facility] [place] [address] PCP - General Family Practice 09/29/13 Assistant Plant Control Operator Relationship Specialty Start Date End Date Chance Ferro MD [address] [place] [id number] PCP - General Family Medicine 09/29/13 Assistant Plant Control Operator Relationship Specialty Start Date End Date Chance Ferro MD [address] [place] [address] [place] [address] PCP - General Family Medicine 09/29/13 Assistant Plant Control Operator Relationship Specialty Start Date End Date Chance Ferro MD [address] [place] [id number] PCP - General Family Medicine 09/29/13 Assistant Plant Control Operator Relationship Specialty Start Date End Date Chance Ferro MD [address] [place] [address] [place] [address] PCP - General Family Medicine 09/29/13 Assistant Plant Control Operator Relationship Specialty Start Date End Date Chance Ferro MD [address] [place] [address] [place] [address] PCP - General Family Medicine 09/29/13 Assistant Plant Control Operator Relationship Specialty Start Date End Date Chance Ferro MD [address] [place] [address] PCP - General Family Medicine 09/29/13 Assistant Plant Control Operator Relationship Specialty Start Date End Date Chance Ferro MD [address] [place] [address] PCP - General Family Medicine 09/29/13 Assistant Plant Control Operator Relationship Specialty Start Date End Date Chance Ferro MD [address] [place] [address] PCP - General Family Medicine 09/29/13 Assistant Plant Control Operator Relationship Specialty Start Date End Date Chance Ferro MD [address] [place] [address] PCP - General Family Medicine 09/29/13 Assistant Plant Control Operator Relationship Specialty Start Date End Date Chance Ferro MD [address] [place] [address] PCP - General Family Medicine 09/29/13 Assistant Plant Control Operator Relationship Specialty Start Date End Date Chance Ferro MD [address] [place] [address] PCP - General Family Medicine 09/29/13 Assistant Plant Control Operator Relationship Specialty Start Date End Date Chance Ferro MD [address] [place] [address] PCP - General Family Medicine 09/29/13 Assistant Plant Control Operator Relationship Specialty Start Date End Date Chance Ferro MD [address] [place] [address] PCP - General Family Medicine 09/29/13 Assistant Plant Control Operator Relationship Specialty Start Date End Date Chance Ferro MD [address] [place], [place] [id number] PCP - General Family Medicine 09/29/13 Assistant Plant Control Operator Relationship Specialty Start Date End Date Chance Ferro MD [address] [place], [place] [id number] PCP - General Family Medicine 09/29/13 Assistant Plant Control Operator Relationship Specialty Start Date End Date Chance Ferro MD [address] [place], [place] [id number] PCP - General Family Medicine 09/29/13 Jennifer Henry APRN.CNP [address] [place], [place] [id number] Senior Sharepoint Architect [facility] 07/25/24 Poonam Alves PA-C [address] [place], [place] [id number] [facility] 07/25/24 Team Status: Active Member Role/Relationship Status Dates Brian Lebron FINISH SPECIALIST, FINISH SPECIALIST-C Family Provider Active Dr. Bert Johnson DO Primary Care Provider Active Team Status: Active Member Role/Relationship Status Dates Dr. Bert Johnson DO Primary Care Provider Active Start: April 28, 2025 Dr. Bert Johnson DO Referring Provider Active S tart: April 28, 2025 Wilner POTTER, PA Attending Provider Active Start: April 28, 2025 Team Status: Inactive Member Role/Relationship Status Dates Dr. Bert Johnson DO Primary Care Provider Active Start: April 28, 2025 End: April 28, 2025 Dr. Gordo Cisneros MD Attending Provider Active S tart: April 28, 2025 End: April 28, 2025 Team Status: Inactive Member Role/Relationship Status Dates Dr. Bert Johnson DO Primary Care Provider Active Start: April 28, 2025 End: April 28, 2025 Dr. Bert Johnson DO Referring Provider Active S tart: April 28, 2025 End: April 28, 2025 Wilner POTTER, PA Attending Provider Active Start: April 28, 2025 End: April 28, 2025 Team Status: Active Member Role/Relationship Status Dates Dr. Bert Johnson DO Primary Care Provider Active Team Status: Inactive Member Role/Relationship Status Dates Dr. Bert Johnson DO Primary Care Provider Active Start: May 03, 2025 End: May 03, 2025 Dr. Mike Quintero DO Emergency Provider Active Start: April End: May 03, 2025 (unrecognized sect ion and content) No Status Records FoundNo Status Records Found INFORMATION SOURCE (unrecogn ized section and content) DATE CREATED AUTHOR 08/27/2024 [facility] DATE CREATED AUTHOR 'S PHILIP SADLER 04/30/2025 [facility] FOR RECORDS PERTAINING TO PATIENTS WHO ARE OR HAVE BEEN ENROLLED IN A CHEMICAL DEPENDENCY/SUBSTANCEABUSE PROGRAM, SOME INFORMATION MAY BE OMITTED. This clinical summary was aggregated from multiple sources. Caution should be exercised in using it in the provision of clinical care. This summary normalizes information from multiple sources, and as a consequence, information in this document may materially change the coding, format and clinical context of patient data. In addition, data may be omitted in some cases. CLINICAL DECISIONS SHOULD BE BASED ON THE PRIMARY CLINICAL RECORDS. [facility] [employer] provides no warranty or guarantee of the accuracy or completeness of information in this document.
== END 2025-05-03 07:34 | disposition home or self-care (01) ==
PROVIDERS: Emergency Provider Surgery; PCP Pediatrics; Visit Provider Surgery
DX: S83.91XA Sprain of unspecified site of right knee, initial encounter (principal); F17.290 Nicotine dependence, other tobacco product, uncomplicated; F17.220 Nicotine dependence, chewing tobacco, uncomplicated
CPT/HCPCS: 96372; 99282

== ENCOUNTER → 2025-07-09 | Outpatient (CLI) | payer OTHER, SELFPAY ==
[2025-07-09 20:45] LABS: Appearance /Synovial Fluid Turbid (CLEAR); Color / Synovial Fluid Yellow (Pale Yellow); Source / Synovial Fluid RIGHT KNEE; Source- Body Fluid SYNOVIAL
[2025-07-10 00:29] LABS: Synovial Fld Polynuclear WBC % 92.0 %
[2025-07-10 00:30] LABS: Synovial Fld Mononuclear WBC % 8.0 %; Synovial Fld Polynuclear WBC # 17.579 10^3/uL
[2025-07-10 00:31] LABS: Synovial Fld Mononuclear WBC # 1.532 10^3/ul
[2025-07-10 01:56] LABS: AUTO B FLUID DILUENT BKGD CT WBC <0.1 RBC <0.01 (W<.1,R<.01)
[2025-07-10 01:57] LABS: CRYSTALS, BODY FLUID NO CRYSTALS SEEN
[2025-07-10 01:59] LABS: RBC /Synovial Fluid 385 /mm3 (0)
[2025-07-10 02:07] LABS: Monocyte /Synovial Fluid 3 %
== END | disposition home or self-care (01) ==
LOC: LABSPEC 14:38
PROVIDERS: PCP Pediatrics; Referring Provider Physician Assistant Surgical; Visit Provider Physician Assistant Surgical
DX: M94.261 Chondromalacia, right knee (principal); M25.461 Effusion, right knee
CPT/HCPCS: 87070; 87075; 87205; 89050; 89051; 89060